=== PATIENT | female | born 1990 | race Caucasian/White ===

== ENCOUNTER → 2018-08-06 | Outpatient (CLI) | payer BC, SELFPAY ==
[2018-07-31 15:06] VITALS: BMI 33.7
[2018-08-06 12:25] LABS: Absolute Lymphocyte Count 1.96 X10^3/ul (0.83-4.51); Absolute Neutrophil Count 4.3 X10^3/uL (2.0-7.7); Basophil# 0.03 X10^3/uL; Basophil% 0.4 % (0-1); Eosinophil# 0.13 X10^3/uL; Eosinophils% 1.8 % (0-5); Hematocrit 43.2 % (37-47); Hemoglobin 14.4 g/dl (12.0-15.0); Lymphocyte # 1.96 X10^3/ul (4.0); Lymphocyte % 27.6 % (19-41); Mean Corp Hgb Conc 33.3 g/gl (32-36); Mean Corpuscular Hgb 27.6 pg (27.0-32.0); Mean Corpuscular Volume 82.9 fL (81-99); Mean Platelet Vol. 12.4 fl (6.2-12.0); Monocyte# 0.62 X10^3/uL; Monocyte% 8.7 % (0-10); Neutrophil # 4.33 X10^3/uL (2.7-7.7); Neutrophil % 61.1 % (47-70); POSITIVE COUNT NO; POSITIVE DIFFERENTIAL NO; POSITIVE MORPHOLOGY NO; Platelet Count 191 K/mm3 (150-450); RBC Distribution Width CV 13.2 % (11.6-14.6); RBC Distribution Width SD 39.4 fl (35.1-43.9); Red Blood Count 5.21 M/mm3 (4.2-5.4); White Blood Count 7.1 K/mm3 (4.4-11.0)
[2018-08-06 12:34] LABS: Albumin, Serum 3.9 g/dL (3.2-5.0); BUN 8 mg/dL (7-18); BUN/Creat Ratio 11.3 RATIO (10-20); Creatinine, Serum 0.71 mg/dL (0.55-1.02); EST Glomerular Filtration Rate 106 mL/min (>60); Est Glom Filt Rate - Afr Amer 128 mL/min (>60); Glucose 77 mg/dL (74-106)
[2018-08-06 12:35] LABS: ALB/GLOB Ratio 1.3 RATIO (0.9-2.4); AST(SGOT) 18 U/L (15-37); Alanine Aminotransfer ALT/SGPT 25 U/L (13-56); Alkaline Phosphatase 99 U/L (45-117); Anion Gap 4 (5-15); Calcium,Total 8.6 mg/dL (8.5-10.1); Chloride 106 mmol/L (98-107); Cholesterol 183 mg/dL (200); Globulin 3.1 g/dL (2.2-4.2); High Density Lipoprotein 49 mg/dL; Potassium 3.8 mmol/L (3.5-5.1); Sodium Level 137 mmol/L (136-145); Triglycerides 151 mg/dL; Very Low Density Lipoprotein 30 mg/dL (5-40)
== END | disposition home or self-care (01) ==
LOC: BIMLAB 09:03
PROVIDERS: PCP Internal Medicine; Visit Provider Internal Medicine
DX: E66.9 Obesity, unspecified (principal)
CPT/HCPCS: 36415; 80053; 80061; 85025

== ENCOUNTER 2018-10-04 19:52 | Emergency (ER) | payer OTHER, BC, SELFPAY ==
[2018-08-23 11:19] VITALS: BMI 33.7
[2018-10-04 19:52] VITALS: BP 132/89; PULSE 91; RESP 18; TEMP 36.7; O2SAT 99; BMI 33.8
--- NOTE | 2018-10-04 20:00 | RAD_ITS ---
STUDY: X-RAY - LEFT KNEE REASON FOR EXAM: Female, 28 years old. Trauma TECHNIQUE: 4 view(s) of the knee. COMPARISON: None. FINDINGS: ACL replacement changes noted. There is no evidence of fracture or dislocation. There are no significant degenerative changes. There are no radiodense foreign bodies. RAD/Knee 4 or More Views IMPRESSION: No fracture or dislocation. Electronically Signed: Lam Cabral, at 20:23 EDT Tel , Service support ,
--- NOTE | 2018-10-04 21:30 | ED.VIS.LOWEX ---
History of Present Illness Chief Complaint: Lower Extremity Injury Informant: Patient Occurred: Today - about 3 hrs ago Mechanism/Context: - - playing basketball at work w/ residents at [facility] home Context: Sudden Onset Timing: Intermittent Quality of Pain: Aching Location: medial left knee Current Severity: Mild Maximum Severity: Severe Worsened by: walking, bending Relieved by: rest Associated Symptoms: Loss of Funtion - intermittently. Negative for: Parasthesia, Weakness Narrative: Patient states he was playing basketball and while she was turning, her knee suddenly gave out and she fell without any other injury, but since the injury, her leg has been catching and she feels significant pain in the medial left knee joint space when that happens, and her knee locks and she is unable to move it. With certain movements, she is able to get it to unlock and then bend it as she is able now. She has had a meniscus surgery on her right knee, and an ACL repair on the symptomatic left knee. Saw Dr. Barron in the past. - Past Medical History (1) Arthritis Status: Chronic (2) Migraines Status: Chronic (3) Scoliosis Status: Chronic Past Medical History - Allergies and Home Meds Allergies/Adverse Reactions: Allergies Sulfa (Sulfonamide Antibiotics) Allergy (Intermediate, Verified 08/23/18 11:17) Rash Primary Care Physician: Gerardo Ty MD [Primary Care Provider] - Surgical History: - - knees Smoking Status: Never smoker Review of Systems General: Denies: Chills, Fever Musculoskeletal: Reports: Extremity Pain. Denies: Neck pain, Back pain, Swelling Skin: Denies: Abrasions, Wounds Neurological: Denies: Weakness, Parasthesia, Numbness Physical Exam Vital Signs/Narrative: Vital Signs Temp Pulse Resp BP Pulse Ox 10/04/18 19:52 98.1 F 91 18 132/89 H 99 Inital Vital Signs reviewed: Yes - Extremity Exam Left Knee: Limited ROM - But able to almost completely flex. Extensor mechanism intact. No effusion. Tender medial joint line. Joint is stable. Pain when stressing MCL but no laxity. Negative Gee. Negative posterior drawer. Stable LCL. General: Well nourished, Well developed, - - nad Head: Normocephalic, Atraumatic Skin: Normal color, No rash, No Trauma Neurological: Alert, Oriented x3, Cranial nerves II-XII grossly intact, Normal Strength, Normal Sensation Psychological: Normal affect Diagnostic/Tx/Re-eval Clinical Impression(s) from Imaging Studies Knee X-Ray 10/04/18 20:00 IMPRESSION: No fracture or dislocation. Electronically Signed: Lam Cabral, at 20:23 EDT Tel , Service support , - Medical Decision Making X-rays unremarkable. My suspicion is that she has a meniscus injury or tear. Her knee is not locked right now. I will give her a knee immobilizer with instructions on how to apply it, she has crutches at home. She will be given appropriate work restrictions, follow-up, she will need an MRI and then probable referral to orthopedics based on the results. We will not apply the knee immobilizer on her now since she is not getting crutches now. She understands all that. ED Disposition - Plan for ED Patient: Disposition: Home or Assisted Living Diagnosis: Acute traumatic internal derangement of left knee Instructions: ED Meniscal Injury Knee Poss, ED Immobilizer Knee Referrals: Gerardo Ty MD [Primary Care Provider] - [facility] [GROUP OF PHYSICIANS] - (1-4 days)
--- NOTE | 2018-10-04 21:34 | ED.DCSUM_ITS ---
History of Present Illness Chief Complaint: Lower Extremity Injury Informant: Patient Occurred: Today - about 3 hrs ago Mechanism/Context: - - playing basketball at work w/ residents at [facility] home Context: Sudden Onset Timing: Intermittent Quality of Pain: Aching Location: medial left knee Current Severity: Mild Maximum Severity: Severe Worsened by: walking, bending Relieved by: rest Associated Symptoms: Loss of Funtion - intermittently. Negative for: Parasthesia, Weakness Narrative: Patient states he was playing basketball and while she was turning, her knee suddenly gave out and she fell without any other injury, but since the injury, her leg has been catching and she feels significant pain in the medial left knee joint space when that happens, and her knee locks and she is unable to move it. With certain movements, she is able to get it to unlock and then bend it as she is able now. She has had a meniscus surgery on her right knee, and an ACL repair on the symptomatic left knee. Saw Dr. Barron in the past. - Past Medical History (1) Arthritis Status: Chronic (2) Migraines Status: Chronic (3) Scoliosis Status: Chronic Past Medical History - Allergies and Home Meds Allergies/Adverse Reactions: Allergies Sulfa (Sulfonamide Antibiotics) Allergy (Intermediate, Verified 08/23/18 11:17) Rash Primary Care Physician: Gerardo Ty MD [Primary Care Provider] - Surgical History: - - knees Smoking Status: Never smoker Review of Systems General: Denies: Chills, Fever Musculoskeletal: Reports: Extremity Pain. Denies: Neck pain, Back pain, Swelling Skin: Denies: Abrasions, Wounds Neurological: Denies: Weakness, Parasthesia, Numbness Physical Exam Vital Signs/Narrative: Vital Signs Temp Pulse Resp BP Pulse Ox 10/04/18 19:52 98.1 F 91 18 132/89 H 99 Inital Vital Signs reviewed: Yes - Extremity Exam Left Knee: Limited ROM - But able to almost completely flex. Extensor mechanism intact. No effusion. Tender medial joint line. Joint is stable. Pain when stressing MCL but no laxity. Negative Gee. Negative posterior drawer. Stable LCL. General: Well nourished, Well developed, - - nad Head: Normocephalic, Atraumatic Skin: Normal color, No rash, No Trauma Neurological: Alert, Oriented x3, Cranial nerves II-XII grossly intact, Normal Strength, Normal Sensation Psychological: Normal affect Diagnostic/Tx/Re-eval Clinical Impression(s) from Imaging Studies Knee X-Ray 10/04/18 20:00 IMPRESSION: No fracture or dislocation. Electronically Signed: Lam Cabral, at 20:23 EDT Tel , Service support , - Medical Decision Making X-rays unremarkable. My suspicion is that she has a meniscus injury or tear. Her knee is not locked right now. I will give her a knee immobilizer with instructions on how to apply it, she has crutches at home. She will be given appropriate work restrictions, follow-up, she will need an MRI and then probable referral to orthopedics based on the results. We will not apply the knee immobilizer on her now since she is not getting crutches now. She understands all that. ED Disposition - Plan for ED Patient: Disposition: Home or Assisted Living Diagnosis: Acute traumatic internal derangement of left knee Instructions: ED Meniscal Injury Knee Poss, ED Immobilizer Knee Referrals: Gerardo Ty MD [Primary Care Provider] - [facility] [GROUP OF PHYSICIANS] - (1-4 days)
[2018-10-04] MEDS: Naproxen 500 MG Tablet PO (22:00)
== END 2018-10-04 22:02 | disposition home or self-care (01) ==
PROVIDERS: Emergency Provider Emergency Medicine; Family Provider Internal Medicine; PCP Internal Medicine
DX: S89.92XA Unspecified injury of left lower leg, initial encounter (principal); W18.39XA Other fall on same level, initial encounter; Y93.67 Activity, basketball; Y92.119 Unspecified place in children's home and orphanage as the place of occurrence of the external cause; Y99.0 Civilian activity done for income or pay
CPT/HCPCS: 73564; 99283

== ENCOUNTER → 2018-10-16 07:13 | Outpatient (CLI) | payer OTHER, SELFPAY ==
[2018-10-07 11:01] VITALS: BMI 33.8
--- NOTE | 2018-10-16 07:16 | MRI_ITS ---
STUDY: MRI LEFT KNEE REASON FOR EXAM: Female, 28 years old. Medial Left knee pain TECHNIQUE: Standardized fat and water weighted pulse sequences were obtained in all 3 orthogonal planes. COMPARISON: 10/04/2018. FINDINGS: There are multiple radial and undersurface tears of the medial meniscus body and posterior horn. Normal hyaline cartilage of the medial femorotibial compartment. Normal medial femoral condyle and tibial plateau. Normal medial collateral ligamentous complex (MCL). Normal distal semimembranosus, gracilis and semitendinosus tendons. Normal lateral meniscus. Normal hyaline cartilage of the lateral femorotibial compartment. Normal lateral femoral condyle and tibial plateau. Normal proximal tibiofibular articulation. Normal lateral collateral (fibular) ligament. Normal popliteus tendon. Normal biceps femoris tendon. There is ACL tendon graft, normal in appearance. Normal posterior cruciate ligament (PCL). Normal congruent patellofemoral articulation. Normal hyaline cartilage of the patellofemoral compartment. Normal medial and lateral patellar retinaculum. Normal quadriceps tendon. Normal patellar tendon. Normal Hoffa's fat pad. There is no joint effusion. The soft tissues are unremarkable. The otherwise visualized osseous structures are unremarkable. MRI/Lower Ext Joint Only (Routine) IMPRESSION: Multiple radial and undersurface tears of the medial meniscus body and posterior horn. ACL graft is intact. Electronically Signed: Kristy Gaspar, at 13:04 EDT Tel , Service support ,
== END ==
PROVIDERS: Family Provider Internal Medicine; PCP Internal Medicine; Referring Provider Physician Assistant Surgical; Visit Provider Physician Assistant Surgical
DX: M23.92 Unspecified internal derangement of left knee (principal)
CPT/HCPCS: 73721

== ENCOUNTER → 2019-02-11 13:37 | Outpatient (CLI) | payer BC, SELFPAY ==
[2019-02-11 13:06] VITALS: BMI 33.8
[2019-02-11 14:30] LABS: Internal QC Validated? YES +Cl - CLEAR BKGD; Pregnancy, Serum, hCG Quali. NEGATIVE Negative
== END ==
PROVIDERS: Family Provider Internal Medicine; PCP Internal Medicine; Referring Provider Internal Medicine; Visit Provider Internal Medicine
DX: R11.2 Nausea with vomiting, unspecified (principal)
CPT/HCPCS: 36415; 84703

== ENCOUNTER 2019-02-19 10:36 | Day surgery (SDC) | payer OTHER, SELFPAY ==
[2019-02-04 08:20] VITALS: BMI 33.8
[2019-02-11 13:06] VITALS: BMI 33.8
[2019-02-19] VITALS (12 sets, daily range): BP systolic 111–134; BP diastolic 67–90; PULSE 72–120; RESP 14–18; TEMP 36.1–36.9; O2SAT 84–98; BMI 35.4
[2019-02-19 10:54] LABS: Internal QC Validated? YES +Cl - CLEAR BKGD; Pregnancy, Urine Negative Negative
[2019-02-19] MEDS: Lactated Ringers 1,000 ML 100 ML IV ×3 (11:06→17:29)
[2019-02-19] MEDS: Cefazolin 2 GM in 0.9% Normal Saline 100 ML IV (13:34)
[2019-02-19] MEDS: Epinephrine (1 mg/ml) 1 MG/ML VIAL (14:00)
[2019-02-19] MEDS: Mupirocin Ointment 22gm Tube 1 APPLIC (15:02)
--- NOTE | 2019-02-19 18:27 | PCM.DC.ORTHO ---
Discharge Diet: No Restrictions - ttwb left leg with crutches braces locked in extension, may rom 0-30 degrees, knee locked in extension at night for sleep, follow up/ call for appt with venkat on sunday for dressing change/ brace adjustment, SURESH stockings Discharge Activity: May Not Drive May shower in (days): 1 Ice area for (Minutes): 20 - Every hour while awake. Weight Bearing Status: Weight bearing as tolerated Keep extremity elevated above heart level: Operative Extremity Call your doctor if your incision/area has: Continuous Slow Oozing, Sudden Increased Bleeding, Increased Pain/ Swelling, Increased Redness, Foul Smelling Discharge Call your doctor if you observe: Fever of 101 or Higher, Coldness, Increased Pain, Numbness or Tingling, Change in Color, Calf discomfort Allergies/Adverse Reactions: Allergies Sulfa (Sulfonamide Antibiotics) Allergy (Intermediate, Verified 02/19/19 10:53) Rash Medications to take at Discharge progesterone micronized 100 mg capsule 100 mg PO QAM 02/04/19 omeprazole 40 mg capsule,delayed release 40 mg PO QAM #30 cap 02/11/19 ondansetron HCl 4 mg tablet 4 mg PO BID-TID PRN #60 tab 02/11/19 Hydrocodone Bitart/Apap 5-325 [[facility] 5MG-325MG] 1 - 2 tab PO Q6H PRN PRN 5 Days #40 tab 02/19/19 The following prescriptions were given: Hydrocodone Bitart/Apap 5-325 [[facility] 5MG-325MG] 1 - 2 tab PO Q6H PRN PRN 5 Days #40 tab PRN Reason: Pain Transmission Status: Received by [facility]/pharmacy #[id number] Primary Care Physician: Gerardo Ty MD [Primary Care Provider] - Test Results: Test results from this visit will be discussed in further detail at your follow-up appointment, if applicable. Please Follow Up With: Arabella Llanos, - [phone]
--- NOTE | 2019-02-19 18:28 | HP.PCM_ITS ---
History and Physical I have re-examined the patient. There are no clinical changes since date of exam. Intake Vital Signs 02/04/19 Body Mass Index (BMI) 33.8 Intake Visit Reasons: left knee Is patient in pain?: Yes Allergies Sulfa (Sulfonamide Antibiotics) Allergy (Intermediate, Verified 02/04/19 08:19) Rash Medications meloxicam 7.5 mg tablet 7.5 mg PO DAILY #90 tab 11/15/18 [Rx Confirmed 11/15/18] progesterone micronized 100 mg capsule 100 mg PO QAM 02/04/19 [History Confirmed 02/04/19] FOR[facility]LY [facility] Medical History (Updated 11/29/18 @ 06:30 by RACHELLE Guillaume) Frequent headaches (Acute) Migraines (Chronic) Scoliosis (Chronic) Seasonal allergies (Chronic) Arthritis (Chronic) Back pain (Acute) Knee pain (Acute) Surgical History (Updated 10/04/18 @ 21:35 by Dominik Sepulveda MD) History of placement of ear tubes (Acute) History of tonsillectomy (Acute) History of tonsillectomy and adenoidectomy (Acute) S/P ACL repair (Acute) meniscus repair (Acute) Family History (Updated 07/31/18 @ 15:13 by Violetta Keith) Grandfather Myocardial infarction, Onset Age: 51 Grandmother Myocardial infarction, Onset Age: 61 Sister Asthma Mother Diabetes Hypertension Arthritis Uncle Myocardial infarction 2 uncles Social History (Updated 02/04/19 @ 11:25 by Arabella Llanos DO) Smoking Status: Never smoker alcohol intake: current alcohol intake frequency: holidays/special occasions only Alcohol type: wine substance use type: does not use what type of physical activity do you participate in: running, weight training frequency: 3-4 times per week HPI left knee: Details: Parts of this documentation were recorded by a scribe, this documentation accurately reflects the service provided and the decisions made by me, Arabella Llanos DO 02/04/19 0814. JAYNA COLES is a 28 year old F here today for continued left knee pain. Patient notes that her pain is over her medial knee. She states that her pain is more constant. She denies any popping or clicking. Patient notes that she has instability while walking down stairs. She denies any locking currently but she did have locking previously. Patient notes that she has increased pain with walking long distances and prolonged sitting then standing. She is working currently with light duty restrictions. Patient got approval for surgery for [facility] until 03/01/19. She notes that she also got approval for PT following her surgery. ROS Musc Reports joint pain Skin/Breast Reports system reviewed and no additional complaints, except as docu Neuro Yes system reviewed and no additional complaints, except as docu Ortho Exam Left Knee Knee ROM: Yes ROM-Extension -20 to 0, Yes ROM-Flexion 0-140 Examination: Yes med jt line tenderness, No Lat jt line tenderness, Yes Shaina's Test Stability: NML: Anterior Drawer Assessment & Plan Problems 1. Other tear of medial meniscus, current injury, left knee, initial encounter S81.732I Plan Reviewed past surgical request. Instructed to not use the progesterone this month yet. Reviewed the pre-operative plans with the patient. Risks and benefits of the procedure were fully explained, including but not limited to infection, neurovascular injury, continued pain, arthritis, stiffness, need for further surgery, re-injury, DVT, PE, general risks of anesthesia, and loss of limb or life. The patient understands all the risks and does wish to proceed with written consent. Follow up post op or sooner if pain, swelling, numbness or associated symptoms, or concerns develop. All questions answered. Patient in agreement of plan. Coding Level of Care Code Off vis,est,level 4 Diagnoses Other tear of medial meniscus, current injury, left knee, initial encounter Z24.659G
--- NOTE | 2019-02-19 18:28 | PCM.OPRPT ---
Report of Operation Date of Procedure: 02/19/19 Pre-Operative Diagnosis: medial men tear Post-Operative Diagnosis: same Surgery/Procedure Performed:: lamont megan men repair bucket handle repair medical radiation dosimetrist: Luis Mcmahan Type of Anesthesia:: General Anesthesiologist: Howard Kessler Fluids Replaced: 1000ml lr Description of Procedure: Preop note Patient is a 28-year-old female with continued left knee pain and instability. Patient MRI confirms medial meniscus tear risk benefits alternatives surgery discussed with patient. Risks including but not limited to blood loss, blood clot, infection, neurovascular, failure procedure, loss of life and loss of limb. Patient is aware like proceed with left knee arthroscopy repair as indicated Operative note Next Patient seen and examined preop holding area. Left knee was marked. Patient brought to the operating placed supine on the operating table. Signed, anesthesia, antibiotics were administered. Left knee was prepped and draped usual sterile fashion with tourniquet around her upper thigh. Marked out anterolateral anteromedial portal placement. The left leg was then elevated segmented protectors pressure which rates her pressure 250 torr. We then started a diagnostic arthroscopy with using 11 blade to the anterolateral portal. Visualize the patellofemoral joint which is intact with a moved to the medial joint line that was a bucket-handle medial meniscus tear ACL PCL present in the notch the lateral meniscus was intact and stable probing as well as the lateral femoral condyle lateral to plateau we then grasped with a bucket-handle tear it was a chronic tear that was difficult we did do a partial meniscectomy as well. We rasped the area and did shave the area back we then were able to place the meniscus back to its insertion with multiple reverse curved FasT-Fix devices. We then put the probe back into the knee and noted that we had good stable rim remaining meniscus repair. The knee was then irrigated with copious muscle sterile saline we microfracture the notch. The tourniquet was deflated for a total working time of 50 minutes. Patient tied procedure well no comp occasions [facility] recovery room in stable condition Postoperative note Discussed with family that due to chronicity of injury the risks of retearing are significant We will give pictures in 2 weeks Follow-up on Sunday for dressing change with Moreno Toe-touch weightbearing left leg next Call with increased pain numbness tingling or other issues arise This note was generated with [employer] software. It may contain incorrect words, spelling, and punctuation that were not noted in checking the note before signing.
--- NOTE | 2019-02-19 19:10 | SUR.PHASEII ---
Addendum entered by Marlene Domingo 02/19/19 19:33: PATIENT STATES SHE'S FEELING BETTER, WANTS TO GO HOME. GETTING DRESSED WITH 'S ASSISTANCE. REPORTS KNEE PAIN THE SAME AND TOLERABLE, DECLINES NEED FOR PAIN MEDICATION AT THIS TIME. Original Note: WHEN STANDING FOR THE FIRST TIME, BECAME NAUSEATED AND VOMITED APPROX 200 ML CLEAR/BILE EMESIS. WAS ABLE TO AMBULATE WITH ASSIST. DR RICE NOTIFIED, ORDERED ZOFRAN 4 MG IVP AND SCOPOLAMINE PATCH WHICH WAS GIVEN. PATIENT AND STATE PATIENT ALWAYS GETS SICK AFTER SURGERY, VERBALIZE DESIRE TO GO HOME.
== END 2019-02-19 19:40 | disposition home or self-care (01) ==
LOC: SDC 10:36 → AC 10:37
PROVIDERS: Anesthesiology; Family Provider Internal Medicine; PCP Internal Medicine; Referring Provider Orthopaedic Surgery; Visit Provider Orthopaedic Surgery
PROC: (CPT 29882; principal; 2019-02-19 11:50)
DX: S83.212A Bucket-handle tear of medial meniscus, current injury, left knee, initial encounter (principal); X58.XXXA Exposure to other specified factors, initial encounter; Y93.9 Activity, unspecified; Y92.9 Unspecified place or not applicable; Y99.0 Civilian activity done for income or pay; K21.9 Gastro-esophageal reflux disease without esophagitis
CPT/HCPCS: 29882; 81025; J7120; J2405

== ENCOUNTER 2019-06-18 13:00 | Outpatient (RCR) | payer OTHER, BC, SELFPAY ==
[2019-03-04 13:49] VITALS: BMI 35.4
--- NOTE | 2019-03-11 09:32 | HP.PTEVAL_ITS ---
Patient's Visit Information JAYNA COLES is a 28 year old F referred to Physical Therapy by Arabella Llanos DO with a diagnosis of S/P SALK MEDIAL MENISCUS REPAIR BUCKET HANDLE. Date of Evaluation: 03/10/19 Physical Therapist: Ulises Hernandez, PT, Cert MDT, OCS - Visit Plan Frequency: 3x /Week Duration: 6 Weeks Plan: PATIENT UNDERWENT S/P MEDIAL MENISCUS REPAIR BUCKET HANDLE ON 02/19/10. PATIENT IS TDWB LLE WITH KNEE BRACE LOCKED IN EXENSION WALKING ,OKAY TO UNLOCK 70 DEGREES SITTING. SEE GUIDELINES FOR MENISCUS REPAIR. PT INTERVENTIONS WITH ROM KNEE 70 DEGREES ,4 WAY SLR ,UNLOAD QUAD/HAMS/HIP STRENGTHNING ,PROROGRESS WITH WB ATIVITIES AFTER 6WEEKS ,STENGTHENING,GAIT,PROPRIOCEPTION,FLEXABLITY,MODALTIES PRN - Subjective Findings: This 28 y/o female presents to physical therapy with s/p left medial meniscus bucket handlerepair. Patient tore meniscus of left knee 10/04/18 at work playing basketball with a client.Intially had immediate pain and unable to walk on it. Patient went to ER [facility] ,placed on crutches with knee immobilizer. [facility] showed bucket handle tear. Patient then seen Dr Llanos in September ,but had to wait due to appeal until surgery in on by DR Llanos done at [facility] with NWB knee IROM brace with locked in extension. Seen Dr last week on 03/07/19 with knee brace locked in extension with walking/bed and okay to unlock 70 degrees in sitting ,then TDWB.RTD Apr 02. Denies parathesia/tingling. Patient sleeping okay. Patient has impairments with walking TDWB, standing causes deficits stairs,ADLS' and RTW. Patient condition affects QOL and function. Patient does plan to rturn to work light duty. 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 SOCAIL: . 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 GAIT: Ambulates with TDWB with left knee brace locked in extension. SKIN: inscion well approximate. EDEMA;: joint line 40 cm. AROM: 3-65 supine knee flexion. MMT: quads/hams NT,HIP abd/add/extension 3+/5. PATELLA MOBS: Mild/mod tight inferior superior - Goals Goal 1:: Independant with HEP. Goal Time Frame: 8-12 Weeks Goal 2:: Improve AROM knee flexion 0-125 degrees to improve gait Goal Time Frame: 8-12 Weeks Goal 3:: Patient increase strength quads/hams 4/5 ,hip 4/5 to improve function. Goal Time Frame: 8-12 Weeks Goal 4:: Patient to normalize gait with normal balance Goal Time Frame: 8-12 Weeks Goal 5:: Patient be able to perform job demands without limitations Goal Time Frame: 8-12 Weeks Goal 6:: Patient to improve LFES score by 10-15 points to improve QOL and RTW Goal Time Frame: 8-12 Weeks - Rehabilitation Potential Physical Therapy Diagnosis: Patient tore meniscus at work playing Convrrt with client on 10/04/18 ,then had MRI showed meniscus bucket handle tear thus underwent s/p meniscus repair on 02/19/19 with impairments with decrease ROM,strength decrease gait with TDWB with crutches thus unable to RTW full duty. Rehabilitation Potential: Good - Anticipated Interventions Patient/Client Instruction: Educate patient on: Condition, Plan of Care For the Purpose of:: To decrease pain, To increase ROM, To improve muscle performance and motor function, To improve ability to perform ADL's, To increase tolerance to activity/condition/position, To improve ability of physical actions for home/community/work/leisure, To improve health of tissue, To decrease soft tissue restriction, To increase flexibility/ROM, To improve balance, To improve ability to perform tasks related to life management Therapeutic Exercise to Include: Strength training, Endurance training, Balance training, Flexibilty training, Gait and locomotor training, Passive ROM, Active ROM Comment: SEE GUIDELINES MENISCUS REPAIR For the Purpose of:: To decrease pain, To increase ROM, To improve muscle performance and motor function, To improve ability to perform ADL's, To increase tolerance to activity/condition/position, To improve performance and independence with ADL's, To improve ability of physical actions for home/community/work/leisure, To improve health of tissue, To decrease soft tissue restriction, To increase flexibility/ROM, To improve ability to perform tasks related to life management Functional electric stimulation: Yes TENS: Yes IF ES: Yes Cryotherapy (ice pack, ice massage): Yes Vasopneumatic device: Yes For the Purpose of:: To decrease pain, To improve nutrient delivery to tissue, To increase oxygenation perfusion, To improve health of tissue, To decrease soft tissue restriction Thank you for the opportunity to evaluate your patient. For Medicare and Medicare HMO plans, please review the plan of care and approve it. It will need to be FAXED BACK to us at [phone] for Medicare purposes. For Medicare only, by signing this I certify the plan of care. Please let me know if there are questions or concerns regarding this plan of care. Physician Signature: Date:
--- NOTE | 2019-03-11 14:18 | HP.PTEVAL ---
Patient's Visit Information JAYNA COLES is a 28 year old F referred to Physical Therapy by Arabella Llanos DO with a diagnosis of S/P SALK MEDIAL MENISCUS REPAIR BUCKET HANDLE. Date of Evaluation: 03/10/19 Physical Therapist: Ulises Hernandez, PT, Cert MDT, OCS - Visit Plan Frequency: 3x /Week Duration: 6 Weeks Plan: PATIENT UNDERWENT S/P LEFT MEDIAL MENISCUS REPAIR BUCKET HANDLE ON 02/19/10. PATIENT IS TDWB LLE WITH KNEE BRACE LOCKED IN EXENSION WALKING ,OKAY TO UNLOCK 70 DEGREES SITTING. SEE GUIDELINES FOR MENISCUS REPAIR. PT INTERVENTIONS WITH ROM KNEE 70 DEGREES ,4 WAY SLR ,UNLOAD QUAD/HAMS/HIP STRENGTHNING ,PROROGRESS WITH WB ATIVITIES AFTER 6WEEKS ,STENGTHENING,GAIT,PROPRIOCEPTION,FLEXABLITY,MODALTIES PRN - Subjective Findings: This 28 y/o female presents to physical therapy with s/p left medial meniscus bucket handlerepair. Patient tore meniscus of left knee 10/04/18 at work playing basketball with a client.Intially had immediate pain and unable to walk on it. Patient went to ER [facility] ,placed on crutches with knee immobilizer. [facility] showed bucket handle tear. Patient then seen Dr Llanos in September ,but had to wait due to appeal until surgery in on 02/19/[address] Llanos done at [facility] with NWB knee IROM brace with locked in extension. Seen Dr last week on 03/07/19 with knee brace locked in extension with walking/bed and okay to unlock 70 degrees in sitting ,then TDWB.RTD Apr 02. Denies parathesia/tingling. Patient sleeping okay. Patient has impairments with walking TDWB, standing causes deficits stairs,ADLS' and RTW. Patient condition affects QOL and function. Patient does plan to rturn to work light duty. 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 SOCAIL: . 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 GAIT: Ambulates with TDWB with left knee brace locked in extension. SKIN: inscion well approximate. EDEMA;: joint line 40 cm. AROM: 3-65 supine left knee flexion. MMT: left quads/hams NT,HIP abd/add/extension 3+/5. PATELLA MOBS: Mild/mod tight inferior superior - Goals Goal 1:: Independant with HEP. Goal Time Frame: 8-12 Weeks Goal 2:: Improve AROM left knee flexion 0-125 degrees to improve gait Goal Time Frame: 8-12 Weeks Goal 3:: Patient increase strength LEFT quads/hams 4/5 ,hip 4/5 to improve function. Goal Time Frame: 8-12 Weeks Goal 4:: Patient to normalize gait with normal balance Goal Time Frame: 8-12 Weeks Goal 5:: Patient be able to perform job demands without limitations Goal Time Frame: 8-12 Weeks Goal 6:: Patient to improve LFES score by 10-15 points to improve QOL and RTW Goal Time Frame: 8-12 Weeks - Rehabilitation Potential Physical Therapy Diagnosis: Patient tore left meniscus at work playing [employer] with client on 10/04/18 ,then had MRI showed meniscus bucket handle tear thus underwent s/p meniscus repair on 02/19/19 with impairments with decrease ROM,strength decrease gait with TDWB with crutches thus unable to RTW full duty. Rehabilitation Potential: Good - Anticipated Interventions Patient/Client Instruction: Educate patient on: Condition, Plan of Care For the Purpose of:: To decrease pain, To increase ROM, To improve muscle performance and motor function, To improve ability to perform ADL's, To increase tolerance to activity/condition/position, To improve ability of physical actions for home/community/work/leisure, To improve health of tissue, To decrease soft tissue restriction, To increase flexibility/ROM, To improve balance, To improve ability to perform tasks related to life management Therapeutic Exercise to Include: Strength training, Endurance training, Balance training, Flexibilty training, Gait and locomotor training, Passive ROM, Active ROM Comment: SEE GUIDELINES MENISCUS REPAIR For the Purpose of:: To decrease pain, To increase ROM, To improve muscle performance and motor function, To improve ability to perform ADL's, To increase tolerance to activity/condition/position, To improve performance and independence with ADL's, To improve ability of physical actions for home/community/work/leisure, To improve health of tissue, To decrease soft tissue restriction, To increase flexibility/ROM, To improve ability to perform tasks related to life management Functional electric stimulation: Yes TENS: Yes IF ES: Yes Cryotherapy (ice pack, ice massage): Yes Vasopneumatic device: Yes For the Purpose of:: To decrease pain, To improve nutrient delivery to tissue, To increase oxygenation perfusion, To improve health of tissue, To decrease soft tissue restriction Thank you for the opportunity to evaluate your patient. For Medicare and Medicare HMO plans, please review the plan of care and approve it. It will need to be FAXED BACK to us at [phone] for Medicare purposes. For Medicare only, by signing this I certify the plan of care. Please let me know if there are questions or concerns regarding this plan of care. Physician Signature: Date:
--- NOTE | 2019-06-18 14:10 | HP.PTDCSUM ---
HP - PT D/C Summary It has been my pleasure to treat JAYNA COLES under orders from Dr. Arabella Llanos DO, for the diagnosis of S/P SALK MEDIAL MENISCUS REPAIR BUCKET HANDLE for a total of 26 visit(s). Discharge Date: Please see the following information for a summary of their discharge status. - Subjective Subjective: Doing good .. patient reports 100% back to normal.RTW fully duty - Pain Left Knee Pain Intensity (Out of 10): 0 - Overall Improvement % Improvement: 100 - Objective Objective/Function: POSTURE: WFL. GAIT: normal akira. AROM: 0-120 supine degrees knee flexion. MMT: QUADS/HAMS/HIP 5/5 - Goals Goal 1:: Independant with HEP. Goal Progress: Goal Met Goal 2:: Improve AROM left knee flexion 0-125 degrees to improve gait Goal Progress: Goal Met Goal 3:: Patient increase strength LEFT quads/hams 5/5 ,hip 5/5 to improve function.(NEW GOAL) Goal Progress: Goal Met Goal 4:: Patient to normalize gait with normal balance Goal Progress: Goal Met Goal 5:: Patient be able to perform job demands without limitations Goal Progress: Goal Met Goal 6:: Patient to improve LFES score by 20> points to improve QOL and RTW (NEW GOAL) Goal Progress: Goal Met - Plan Plan: D/C - D/C Information If there are questions or concerns regarding this patient's physical therapy, please feel free to call me at [phone]. Thank you for the referral of this patient. Sincerely, Ulises Hernandez, PT, Cert MDT, OCS
== END 2019-06-18 19:00 | disposition home or self-care (01) ==
LOC: PT 13:00
PROVIDERS: Family Provider Internal Medicine; PCP Internal Medicine; Referring Provider Orthopaedic Surgery; Visit Provider Orthopaedic Surgery
DX: Z98.890 Other specified postprocedural states (principal)
CPT/HCPCS: 97110; 97162

== ENCOUNTER 2021-07-16 12:51 | Emergency (ER) | payer OTHER, BC, SELFPAY ==
[2021-07-16 12:52] VITALS: BP 124/73; PULSE 115; RESP 17; TEMP 37; O2SAT 97; BMI 32.1
--- NOTE | 2021-07-16 13:06 | EX.ED.GENINJ ---
HPI History of Present Illness Chief Complaint: Bite Informant: patient Narrative Narrative: Patient presents with bites and scrapes to both hands. This happened while she was at work. She states she pulled her hand away really before she was bitten with any force. She is not having any notable pain. Her tetanus is up-to-date as of about 4 to 5 years ago. She has no history of immunosuppression or steroid use. Nothing really makes this better or worse but there is really minimal if any symptoms. [facility] Medical History (Updated 07/16/21 @ 13:[address] Jose Alberto To MD) Arthritis Back pain Frequent headaches Knee pain Migraines Scoliosis Seasonal allergies Home Medications progesterone micronized 100 mg capsule 100 mg PO QAM 02/04/19 [History Last Taken Unknown] omeprazole 40 mg capsule,delayed release 40 mg PO QAM #30 cap 02/11/19 [Rx Last Taken Unknown] ondansetron HCl 4 mg tablet 4 mg PO BID-TID PRN #60 tab 02/11/19 [Rx Last Taken Unknown] amoxicillin-pot clavulanate 1 tab PO BID #14 tab 07/16/21 [Rx Last Taken Unknown] Allergy/AdvReac Type Severity Reaction Status Date / Time Sulfa (Sulfonamide Allergy Intermediate Rash Verified 07/16/21 12:51 Antibiotics) Family History Grandfather Myocardial infarction, Onset Age: 51 Grandmother Myocardial infarction, Onset Age: 61 Sister Asthma Mother Diabetes Hypertension Arthritis Uncle Myocardial infarction 2 uncles Surgical History History of placement of ear tubes History of tonsillectomy History of tonsillectomy and adenoidectomy meniscus repair S/P ACL repair Social History Smoking Status: Never smoker alcohol intake: current alcohol intake frequency: holidays/special occasions only Alcohol type: wine substance use type: does not use what type of physical activity do you participate in: running and weight training frequency: 3-4 times per week ROS ROS ED Constitutional Constitutional ED: Denies fever(s) Gastrointestinal Gastrointestinal: Denies nausea or vomiting Integumentary Reports Abrasions Neurologic Neurologic: Denies weakness Hematologic/Lymphatic Hematologic/Lymphatic: Denies easy bleeding or easy bruising EXAM Physical Exam Const Vital Signs: 07/16/21 12:52 Temperature 98.6 F Temperature Source Temporal Pulse Rate 115 H Respiratory Rate 17 Blood Pressure 124/73 H Blood Pressure Mean 90 Pulse Ox 97 Oxygen Delivery Method Room Air Positive well nourished and well developed General Appearance ED: well developed and NAD HEENT atraumatic Neck full ROM Resp normal respiratory effort Extremity Extremity Narrative: There are some very superficial red shah to the dorsum of both hands. These really do not even go through or much into the epidermis. There is no break into the dermis anywhere. No pain with range of motion of the hand. Neuro oriented x3 Sensorium / Orientation: alert Skin Skin Narrative: Very superficial abrasions to the dorsum of both hands as above. Trauma: abrasion Wounds: wounds noted MDM MDM MDM Narrative Medical decision making narrative: Patient this is already up-to-date. I explained that she really does not have a break through the epidermis. At this point there is no indication to give antibiotics. I will write a prescription for her to start if she develops any redness or changes. If there is any swelling or pain. She can also return at that time. The area has been cleaned. Discharge Plan Triage Chief Complaint: Bite ED Provider: Jose Alberto To Dx/Rx/DC Orders Clinical Impression: Abrasion of hand without infection Instructions: ED Abrasion, ED Human Bite Prescriptions: New amoxicillin-pot clavulanate 875-125 mg tablet 1 tab PO BID Qty: 14 RF: 0 No Action progesterone micronized 100 mg capsule 100 mg PO QAM RF: 0 omeprazole 40 mg capsule,delayed release(DR/EC) 40 mg PO QAM Qty: 30 RF: 1 ondansetron HCl 4 mg tablet 4 mg PO BID-TID PRN (Reason: nausea and vomiting) Qty: 60 RF: 1 Primary Care Provider: Gerardo Ty Referrals: Gerardo Ty MD [Primary Care Provider] - 1-2 Days if not improving Disposition Disposition: Home, Self Care
[2021-07-16 13:17] VITALS: BP 116/74; PULSE 100; RESP 15; O2SAT 100
== END 2021-07-16 13:25 | disposition home or self-care (01) ==
PROVIDERS: Emergency Provider Emergency Medicine; PCP Internal Medicine; Visit Provider Emergency Medicine
DX: S60.511A Abrasion of right hand, initial encounter (principal); S60.512A Abrasion of left hand, initial encounter; Y99.0 Civilian activity done for income or pay; X58.XXXA Exposure to other specified factors, initial encounter
CPT/HCPCS: 99282

== ENCOUNTER 2022-03-09 01:50 | Inpatient (IN) | payer BC, SELFPAY ==
[2022-03-09] VITALS (66 sets, daily range): BP systolic 84–141; BP diastolic 49–81; PULSE 77–190; TEMP 36.3–37.3; O2SAT 78–99; BMI 37.4
[2022-03-09 01:46] LABS: ROM Internal Control Test YES-OK TO RESULT pt. (Internal QC)
[2022-03-09 01:47] LABS: ROM Patient Test POSITIVE (Negative)
[2022-03-09] MEDS: Lactated Ringers 1,000 ML 50 ML IV (02:00)
[2022-03-09] MEDS: LACTATED RINGERS 500 ML 999 ML IV ×5 (02:07→14:55)
[2022-03-09 02:22] LABS: Basophil# 0.04 X10^3/uL; Basophil% 0.4 % (0-1); Eosinophil# 0.09 X10^3/uL; Eosinophils% 0.8 % (0-5); Hematocrit 38.1 % (37-47); Hemoglobin 12.7 g/dL (12.0-15.0); Lymphocyte % 16.7 % (19-41); Mean Corp Hgb Conc 33.3 g/dL (32-36); Mean Corpuscular Hgb 27.3 pg (27.0-32.0); Mean Corpuscular Volume 81.9 fL (81-99); Mean Platelet Vol. 11.7 fl (6.2-12.0); Monocyte# 1.13 X10^3/uL; NRBC Flagged by Analyzer 0 % (0-5); Neutrophil # 7.98 X10^3/uL (2.7-7.7); Neutrophil % 70.2 % (47-70); Platelet Count 158 K/mm3 (150-450); RBC Distribution Width CV 14.1 % (11.6-14.6); RBC Distribution Width SD 41.5 fl (35.1-43.9); Red Blood Count 4.65 M/mm3 (4.2-5.4); White Blood Count 11.4 K/mm3 (4.4-11.0)
[2022-03-09] MEDS: Oxytocin 15 Units/NS 250ml 15 UNITS/250 ML IV.SOLN 2 UNITS IV (04:07)
[2022-03-09] MEDS: Ondansetron 4 MG/2 ML Vial IV (05:41)
--- NOTE | 2022-03-09 08:44 | PCM.PN.BLA ---
Progress Note Patient seen at bedside. Breathing through contractions. Thinking of getting epidural for pain control. Physical Exam Const alert and no apparent distress General Appearance: cooperative Orientation / Consciousness: awake Exam Limitations: no limitations HEENT normocephalic Eyes General Eye: normal appearance of both eyes Neck full ROM Chest inspection of chest normal Resp normal respiratory effort and normal air movement Effort and Inspection: symmetric chest movement Auscultation: clear to auscultation bilaterally Cardio regular rate GI soft to palpation, non-tender and non-distended Inspection: and other Back/Spine normal ROM Extremity full ROM, normal capillary refill and no calf tenderness Skin no rashes or lesions noted Neuro oriented x3 and CN's II-XII intact bilaterally Psych mental status grossly normal Assessment & Plan Assessment/Plan (1) PROM (premature rupture of membranes): (2) Obesity (BMI 30.0-34.9): (3) Nulliparity: (4) 38 weeks gestation of : PLAN: Plan NST reactive CE- 2/70/-2 Continue position changes Epidural when indicated Continue present plan of care Dr. Mejia updated and is collaborating physician
[2022-03-09] MEDS: fentaNYL 100 MCG/2 ML Ampul IV (09:05)
[2022-03-09] MEDS: fentaNYL-bupivacaine (epidural) 100 ML BAG EPIDURAL ×2 (12:33→16:43)
[2022-03-09] MEDS: Lactated Ringers 1,000 ML 200 ML IV (13:50)
--- NOTE | 2022-03-09 18:16 | OP.PCM_ITS ---
Assessment & Plan (1) (spontaneous vaginal delivery): (2) Laceration, obstetrical, first degree: (3) Obesity (BMI 30.0-34.9): Maternal Data Information LIZBETH Calculator Estimated Delivery Date Method Current WG Current Estimate 03/18/22 Manual 38w 5d Vaginal Delivery Maternal Presentation Maternal Presentation: Spontaneous Rupture of Membranes Maternal Presentation: at 38.5 weeks gestation that presented with PROM for clear fluid at 2350. Type of Induction: Pitocin (Augmentation) Operative Information Date of Procedure: 03/09/22 Pre-Operative Diagnosis: Term gestation, PROM Post-Operative Diagnosis: Same, live male infant Surgery / Procedure Performed: Spontaneous Vaginal Delivery Type of Anesthesia: Epidural Drain: Hankins to straight drain Estimated Blood Loss: 150 Time of Delivery: 18:00 Findings Description of Procedure: Patient complete dilation and +1 station. Provided bedside support while patient pushing. head delivered over intact perineum. Loose nuchal cord easily reduced. With next push, anterior shoulder followed by remainder of body delivered. Vigorous male placed on maternal abdomen and was attended to by nursing staff. Pitocin IV started for active management of the third stage of labor. 3 vessel cord clamped and cut by patient's sister after 2 minute delay. Infant placed immediately skin to skin with patient. Placenta delivered spontaneously and intact. Small first degree vaginal laceration repaired in usual fashion using 3-0 Vicryl Rapid. Hemostasis obtained. EBL 150 cc. APGARS 8/9. Patient and bonding well at this time. Dr. Mejia notified of doreen lopez. Presentation: Vertex and HUBER Amniotic Membrane Rupture Type: Spontaneous Time of Membrane Rupture: 2350 Amniotic Fluid Description: Clear Placental Delivery Description: Spontaneous Placenta Disposition: [facility] Cord Vessel Description: 3 Vessels Cord Entanglement: Around neck x 1, loose Nuchal Cord Compression: Without compression Infant A Gender: Male (1 minute): 8 (5 minute): 9 Delayed Cord Clamping: Yes Post Vaginal Delivery Medications Given After Delivery: IV Pitocin Episiotomy Description: None Laceration: 1st degree Complication Complications: None
[2022-03-09] MEDS: Oxytocin 15 Units/NS 250ml 15 UNITS/250 ML IV.SOLN 83 UNITS IV (18:45)
[2022-03-10] VITALS (7 sets, daily range): BP systolic 98–112; BP diastolic 59–61; PULSE 76–93; RESP 16–17; TEMP 36.3–36.9
[2022-03-10] MEDS: Acetaminophen 500 MG Tablet 1000 MG PO ×3 (05:28→20:23)
--- NOTE | 2022-03-10 06:45 | PCM.PN.OB ---
Subjective Subjective Patient seen at bedside. Resting quietly. Denies any pain. Voiding without difficulty. Baby in SCN for low blood sugars and doing well. Lochia minimal. Objective Data Objective Data Vital Signs: Vital Signs Temp Pulse Resp BP Pulse Ox O2 Del Method 98.1 F 83 16 107/61 96 Room Air 03/10/22 03:35 03/10/22 03:35 03/10/22 03:35 03/10/22 03:35 03/09/22 20:18 03/09/22 14:35 Oxygen Delivery Method Room Air Weight: 204 lb 12.8 oz Body Mass Index (BMI) 37.4 Intake & Output: Intake and Output for Last 24 Hours 03/08/22 03/09/22 03/10/22 23:59 23:59 23:59 Intake Total 4429.00 / 4429.00 Output Total 1999 900 / 900 Balance 2429.00 / 2429.00 -900 / -900 Lab / Micro Data Result Diagrams: 03/09/22 02:00 Micro: Microbiology 03/09/22 02:00 Nasal Secretion SARS-CoV-2 Antigen (Rapid) - Final ROS Eyes Eyes: Denies blurry vision, change in vision or spots in vision ENT HEENT: Denies dizziness or headache(s) Cardiovascular Cardiovascular: Denies abdominal pain, chest pain or dyspnea Respiratory/Chest Respiratory/Chest: Denies cough, dyspnea, shortness of breath at rest or shortness of breath with exertion Gastrointestinal Gastrointestinal: Denies abdominal pain, diarrhea or vomiting Genitourinary Genitourinary: Denies change in urinary stream, difficulty urinating or dysuria Musculoskeletal Musculoskeletal: Reports none Integumentary Integumentary: Denies rash Neurologic Neurologic: Denies dizziness, headache(s), memory loss or weakness Physical Exam Const alert and no apparent distress General Appearance: cooperative and comfortable Exam Limitations: no limitations HEENT normocephalic Eyes General Eye: normal appearance of both eyes Neck full ROM General: normal visual inspection Chest Chest: symmetrical chest wall rise Resp normal respiratory effort and normal air movement Effort and Inspection: symmetric chest movement Auscultation: clear to auscultation bilaterally Cardio regular rate and regular rhythm GI normal to inspection, nondistended, normoactive bowel sounds Back/Spine normal ROM Extremity full ROM and no calf tenderness General Extremity: normal exam except as noted Skin no rashes or lesions noted Neuro CN's II-XII intact bilaterally Psych mental status grossly normal Assessment & Plan (1) (spontaneous vaginal delivery): (2) Laceration, obstetrical, first degree: (3) Care and examination of lactating mother: PLAN: Plan PPD 1 support Routine care Pain control Anticipate discharge home tomorrow
--- NOTE | 2022-03-10 12:33 | NURSING ---
1220- RN IBCLC in [facility] to assist pt. with latching/feeding. Education given about frequency of feedings, milk transition progression, and signs of a good latch and feeding. Pt. does not have any specific questions or concerns at this time. doing very well with this feeding. Nursed for 10 minutes, took a break, then got back on breast again.
--- NOTE | 2022-03-10 14:39 | CASEMGMT ---
Social Work Assessment Labor and Delivery Unit Patient Address: [address] [place] [address] Phone number: [phone] Date of Referral: 03/10/2022 Time of Referral: 829 Referred By: Social work identification Date of Intervention: 03/10/2022 Time of Intervention: 1329 Reason for Referral: Maternal history of anxiety and infant admitted to special care nursery History obtained from: Medical records and mother of baby (MOB) Suzie Hollins; father of baby (FOB) Bj Hollins present. Household composition: MOB and FOB live with the MOB's [id number] and [id number]. Home situation is reportedly safe and adequate and plan to take infant back to this home. Patient's parent/guardian status: MOB and FOB have been for 8 years. Upon admission MOB denied any safety concerns or history of abuse. No indications present during assessment. Infant is the first child for both parents, baby boy named Yfn Hollins (03/09/2022). Medical History: JU is 1, para 0 now 1 after delivering [place]. No reported issues with care. 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 delivered at 38.5 weeks gestation after premature rupture of membranes. Infant weighed 6 pounds 13 ounces at delivery. Apgars 8 and 9 at 1 and 5 minutes of life respectively. did develop hypoglycemic issues after and transferred into the [facility] special care nursery. Educational Status: JU is just finishing up her graduate degree in counseling and will graduate in March 2022. No issues with reading, writing, or learning comprehension. Financial Status: DEAN works at [employer]. JU works [employer]. 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 Supplies: MOB and FOB reported to have necessary supplies to care for the infant. Childcare/Caregiver(s): MOB and FOB. Transportation: No concerns and both parents drive. Programs/Agencies Involved: No agency involvement. JU reports she looked into WIC but the household may too much money. MOB excepted information on help me grow. Children Services/Legal Issues: None reported. Behavioral Health Issues: Mental Health History: JU reports some situational anxiety in the past though never officially diagnosed. No history of depression. Substance Use History: Denies any history of substance use and no tobacco use. Drug Screens: Meconium drug screening for baby is pending. Family/Social Stressors: MOB has been working through her masters program in counseling throughout this . No other stressors or changes reported other than and infant is now in the special care nursery. Support Systems: MOB reports support from both sides of the family, [id number] and father of baby. FOB does get to take 1 week off of work Depression/Shaken Baby/Safe Sleeping: Information provided. Reviewed risk factors for depression anxiety. ASSESSMENT: Met with MOB and FOB in room, introducing to self and social work role. MOB cooperative, pleasant, and willing to speak with social services technician. Good eye contact. Affect slightly constricted though did brighten as conversation went on. MOB admitted to feeling some stress after the baby went to special care, but reports has been receiving positive updates on the baby which has been helpful, as well as knowing that can visit the baby at any time. MOB and FOB report to have all necessary supplies to care for the infant and to have an adequate support system. No voiced concerns at home going. Both parents listened education on mood and anxiety disorders. Accepted information and and resources and information for humbling. Educated MOB that this rfp writer is the social services technician for labor and delivery unit, but also with the assigned social services technician to the special care unit nursery for continuity of care of families who are admitted into that unit. PLAN: MOB will discharge home when medically ready. is at the special care nursery and will discharge there when medically ready. No other services requested or indicated. -CRISTO Bell, PATRIZIA *This note was generated with [employer] software. It may contain incorrect words, spelling, and punctuation that were not noted in review of the chart prior to signing*
[2022-03-11 01:50] VITALS: BP 114/56; PULSE 67; RESP 15; TEMP 36.6
[2022-03-11] MEDS: Acetaminophen 500 MG Tablet 1000 MG PO (07:01)
--- NOTE | 2022-03-11 10:18 | PCM.PN.OB ---
Subjective Subjective pt doing well. pain well controlled. ambulating and voiding without difficult. robyn reg diet without n/v. pumping and baby is in special care nursery. Objective Data Objective Data Vital Signs: Vital Signs Temp Pulse Resp BP Pulse Ox O2 Del Method 97.8 F 67 15 114/56 L 96 Room Air 03/11/22 01:50 03/11/22 01:50 03/11/22 01:50 03/11/22 01:50 03/09/22 20:18 03/10/22 17:16 Oxygen Delivery Method Room Air Weight: 204 lb 12.8 oz Body Mass Index (BMI) 37.4 Intake & Output: Intake and Output for Last 24 Hours 03/09/22 03/10/22 03/11/22 23:59 23:59 23:59 Intake Total 4429.00 / 4429.00 Output Total 1999 900 / 900 Balance 2429.00 / 2429.00 -900 / -900 Lab / Micro Data Result Diagrams: 03/09/22 02:00 Micro: Microbiology 03/09/22 02:00 Nasal Secretion SARS-CoV-2 Antigen (Rapid) - Final Physical Exam Const alert and no apparent distress General Appearance: comfortable Resp normal respiratory effort GI soft to palpation, non-tender and non-distended GI Narrative: Fundus firm and U-1 Extremity no calf tenderness Assessment & Plan (1) Laceration, obstetrical, first degree: (2) (spontaneous vaginal delivery): PLAN: Doing well and meeting milestones for discharge. Discharge instructions reviewed. D/c home today.
[2022-03-11 10:19] VITALS: BP 111/65; PULSE 81; RESP 16; TEMP 36.6
--- NOTE | 2022-03-11 10:21 | DCINST_ITS ---
Discharge Instructions Diet Discharge Diet: No restrictions Activity Discharge Activity: May Shower May resume sexual activity in: 6 weeks Ice area for (Minutes): 15 Weight Bearing Status: Weight bearing as tolerated Lifting Restrictions: Nothing heavier than baby Dressing / Incision Call your doctor if your incision/area has: Continuous Slow Oozing, Sudden Increased Bleeding, Increased Pain/ Swelling, Increased Redness, Foul Smelling Discharge and Swelling at the incision site Call your doctor if you observe: Fever of 101 or Higher, Coldness, Increased Pain, Numbness or Tingling, Change in Color, Inability to urinate, Inability to have a bowel movement, Using more than 1 pad per hour, Shortness of breath, Dizziness, Fainting spells, Swelling in the ankles, Chest pain, Increased palpitations (irregular heartbeat), Calf discomfort and Uncontrolled pain Cleanse incision/area with: Soap & Water Follow Up Care Please Follow Up With: Katelin Sanchez CNM When: 1-2 weeks 6 weeks Test Results: Test results from this visit will be discussed in further detail at your follow- up appointment, if applicable. Discharge Plan Admission Admit Date/Time: 03/09/22 01:50 Primary Reason for Your Visit: delivery Attending Provider: Winter Arthur Primary Care Provider: Gerardo Ty Discharge Orders/Prescriptions Prescriptions: New ibuprofen 600 mg tablet 600 mg PO Q6H PRN (Reason: pain) Qty: 30 0RF Continued dsxfrosb-wjq-Bl-FA 1 mg Tablet 1 tab PO DAILY Discontinued aspirin 81 mg Capsule 81 mg PO DAILY Referrals / Follow Up: Gerardo Ty MD [Primary Care Provider] - Disposition Disposition (needs filled in before D/C Order can be placed): Home, Self Care
[2022-03-11 13:45] VITALS: BP 99/59; PULSE 80; RESP 16; TEMP 36.4; O2SAT 98
--- NOTE | 2022-03-16 08:50 | DS.PCM_ITS ---
Providers Date of Admission: 03/09/22 Date of Discharge: 03/11/22 Primary Care Physician: Dr. Gerardo Ty MD Reason For Visit: VAG Diagnosis Discharge Diagnosis (1) Laceration, obstetrical, first degree: Status: Acute Code(s): O70.0 - First degree perineal laceration during delivery (2) (spontaneous vaginal delivery): Status: Acute Code(s): O80 - Encounter for full-term uncomplicated delivery Plan: Doing well and meeting milestones for discharge. Discharge instructions reviewed. D/c home today. Medications at Discharge Home Medications spfephvt-krm-Bf-FA 1 mg tablet 1 tab PO DAILY 03/09/22 ibuprofen 600 mg tablet 600 mg PO Q6H PRN pain #30 tabs 03/11/22 Hospital Course Operations - (obstetrical laceration repair) Summary of Care Provided Hospital Course: Pt presented with PROM and delivered vaginally. See operative report for details. She was tolerating a regular diet, ambulating and voiding without difficulty, and bleeding was normal. She was discharged home in good condition with follow up in the office. Weight / BMI Weight Weight: 204 lb 12.8 oz Body Mass Index (BMI) 37.4 ABG / Lab / Microbiology Data Result Diagrams: 03/09/22 02:00 Microbiology: Microbiology 03/09/22 02:00 Nasal Secretion SARS-CoV-2 Antigen (Rapid) - Final D/C Instructions Discharge Diet: No restrictions May resume sexual activity in: 6 weeks Ice area for (Minutes): 15 Weight Bearing Status: Weight bearing as tolerated Call your doctor if your incision/area has: Continuous Slow Oozing, Sudden Increased Bleeding, Increased Pain/ Swelling, Increased Redness, Foul Smelling Discharge and Swelling at the incision site Call your doctor if you observe: Fever of 101 or Higher, Coldness, Increased Pain, Numbness or Tingling, Change in Color, Inability to urinate, Inability to have a bowel movement, Using more than 1 pad per hour, Shortness of breath, D izziness, Fainting spells, Swelling in the ankles, Chest pain, Increased palpitations (irregular heartbeat), Calf discomfort and Uncontrolled pain Cleanse incision/area with: Soap & Water Please Follow Up With: Katelin Sanchez CNM When: 1-2 weeks 6 weeks Meaningful Use Info Meaningful Use Diagnoses (Choose all that apply): None applicable Discharge Plan Admission Admit Date/Time: 03/09/22 01:50 Primary Reason for Your Visit: delivery Attending Provider: Winter Arthur Primary Care Provider: Gerardo Ty Instructions Patient Instructions: After a Vaginal Discharge Orders/Prescriptions Prescriptions: New ibuprofen 600 mg tablet 600 mg PO Q6H PRN (Reason: pain) Qty: 30 0RF Continued ypdswqpa-qqq-Uw-FA 1 mg Tablet 1 tab PO DAILY Discontinued aspirin 81 mg Capsule 81 mg PO DAILY Referrals / Follow Up: Gerardo Ty MD [Primary Care Provider] - Disposition Disposition (needs filled in before D/C Order can be placed): Home, Self Care
--- NOTE | 2022-05-02 19:08 | HP.PCM.OB_ITS ---
HPI - General General Date of Admission: 03/09/22 HPI Narrative JAYNA COLES, is a 32 F who presents at 38w5d with PROM. Maternal Data Information LIZBETH Calculator Estimated Delivery Date Method Current WG Current Estimate 03/18/22 Manual 48w 2d 38w5d PFSH PFSH Medical History (Updated 03/19/22 @ 00:02 by Christina Garcia) Arthritis Back pain Frequent headaches Knee pain Migraines Scoliosis Seasonal allergies Home Medications rdymrifl-yep-Rw-FA 1 mg tablet 1 tab PO DAILY 03/09/22 [History Last Taken Unknown] ibuprofen 600 mg tablet 600 mg PO Q6H PRN pain #30 tabs 03/11/22 [Rx Last Taken Unknown] Allergy/AdvReac Type Severity Reaction Status Date / Time Sulfa (Sulfonamide Allergy Intermediate Rash Verified 03/09/22 01:42 Antibiotics) Family History Grandfather Myocardial infarction, Onset Age: 51 Grandmother Myocardial infarction, Onset Age: 61 Sister Asthma Mother Diabetes Hypertension Arthritis Uncle Myocardial infarction 2 uncles Surgical History History of placement of ear tubes History of tonsillectomy and adenoidectomy meniscus repair S/P ACL repair Social History Smoking Status: Never smoker alcohol intake: current alcohol intake frequency: holidays/special occasions only Alcohol type: wine substance use type: does not use what type of physical activity do you participate in: running and weight training frequency: 3-4 times per week History Elective abortions Hx Para 0 Spontaneous abortions Hx # Term Pregnancies Ectopic pregnancies Hx # Pregnancies Multiple births # of living children Visit Details OB Flowsheet Initial Weight: Not Recorded Date -?-?-?-?-?-?-?-?-?-?-?-?- EGA Weight BP Urine Prot -?-?-?-?-?-?-?-?-?-?-?-?- Glucose FHR FuHt Pres Dilation -?-?-?-?-?-?-?-?-?-?-?-?- Effaced St Visit Note 03/09/22 -?-?-?-?-?-?-?-?-?-?-?-?- 39w 0d 204 lb 12.8 oz 113/5 9 114/61 91/52 112/55 109/55 139/81 111/55 126/72 141/78 100/52 97/52 99/55 98/55 94/51 89/49 91/53 97/52 94/49 100/53 93/50 100/54 119/76 127/66 97/50 84/50 94/55 95/54 97/53 99/57 100/54 98/52 93/55 112/59 -?-?-?-?-?-?-?-?-?-?-?-?- -?-?-?-?-?-?-?-?-?-?-?-?- NST FHR Rate Baby A Baseline: 145 Variability:: Moderate Accelerations:: 15 x 15 Decelerations:: None FHR Category:: Category I Uterine Activity:: Irregular Vital Signs Vital Signs Vital Signs: Weight Weight: 204 lb 12.8 oz Body Mass Index (BMI) 37.4 Labs Labs Labs: Blood Type A POSITIVE Antibody Screen NEGATIVE Hct 38.1 % (37-47) Hgb 12.7 g/dL (12.0-15.0) VZV IgG Antibody 1.34 index (Immune >1.09-) RPR negative HBsAG negative HIV negative HepC negative Assessment & Plan (1) Obesity (BMI 30.0-34.9): (2) Nulliparity: (3) PROM (premature rupture of membranes): (4) 38 weeks gestation of : PLAN: Plan 1) Admit to labor and delivery 2) Routine labs 3) Pitocin per protocol 4) Pain management upon request 5) GBS negative 6) Collaborative physician notified of admission
== END 2022-03-11 16:40 | disposition home or self-care (01) | DRG 807 ==
LOC: WPOUT 01:51 → WP 01:51
PROVIDERS: Admitting Provider Advanced Practice Midwife; PCP Internal Medicine; Visit Provider Advanced Practice Midwife
DX: O42.92 Full-term premature rupture of membranes, unspecified as to length of time between rupture and onset of labor (principal); Z37.0 Single live birth; O69.81X0 Labor and delivery complicated by cord around neck, without compression, not applicable or unspecified; O99.214 Obesity complicating childbirth; O70.0 First degree perineal laceration during delivery; Z3A.38 38 weeks gestation of pregnancy
CPT/HCPCS: 59025; 59050; 84112; 85025; 86850; 86900; 86901; 87426; 99218; J7120; G0378; J2405

== ENCOUNTER 2023-06-19 14:26 | Emergency (ER) | payer BC, SELFPAY ==
[2023-06-19 14:27] VITALS: BP 121/86; PULSE 111; RESP 16; TEMP 36.6; O2SAT 99; BMI 33.3
--- NOTE | 2023-06-19 14:44 | CT_ITS ---
STUDY: CT ABDOMEN AND PELVIS WITH CONTRAST REASON FOR EXAM: Female, 33 years old. Right lower quadrant pain with nausea vomiting and diarrhea. RADIATION DOSAGE (If Supplied By Facility): CTDIvol = ( 11.63 ) mGy, DLP = ( 885.61 ) mGycm TECHNIQUE: Transaxial images were obtained from the dome of the diaphragm to the symphysis pubis without oral contrast. IV 100mL Isovue-370 was administered. Sagittal and coronal images were reconstructed. Individualized dose optimization techniques were used for this CT. COMPARISON: Comparison is made with prior study dated August 01, 2012 FINDINGS: The visualized lung bases are unremarkable. The visualized portions of the heart are within normal limits. There is decreased attenuation of the liver consistent with steatosis. Normal gallbladder and extrahepatic biliary system. Normal spleen. Normal pancreas. Normal bilateral adrenal glands. Normal right kidney. Normal left kidney. Normal visualized stomach. Normal small intestine. Normal colon. The appendix is visualized and appears normal. Normal abdominal aorta. Normal inferior vena cava. Normal retroperitoneum. Normal urinary bladder. Normal abdominal wall. Normal osseous structures. CT/Abdomen/Pelvis W IV Cont ONLY IMPRESSION: Normal enhanced CT of the abdomen and pelvis. Electronically Signed: Julián Beltran MD at 15:26 EST ,
--- NOTE | 2023-06-19 14:51 | EX.ED.DYSGE1 ---
HPI <Gila Patino RN - Last Filed: 06/19/23 16:17> History of Present Illness Chief Complaint: Abd Pain Informant: patient Onset/Context/Timing Onset: Today Context: Sudden Onset Timing: Continuous Quality: Sharp Location: Right upper and lower quadrant Current Severity: 6/10 Maximum Severity: 2/10 Worsened by: Nothing Relieved by: Nothing Associated Symptoms Associated Symptoms: Nausea, vomiting, diarrhea Narrative Narrative: Patient presents to the ED for sudden onset right upper and lower quadrant abdominal pain beginning at 0430 today associated with nausea, vomiting, and diarrhea. Patient reports emesis x 2 that consisted of bile. Patient reports decreased p.o. intake. Patient denies dysuria, hematuria or urinary frequency. Reports last menstrual period as 06/05/2023. Denies prior abdominal surgeries. Reports mother with history of colitis. Denies dizziness, chest pain, shortness of breath. Prior similar symptoms: No Recent Illness/Hospitalization: No PFSH <Gila Patino RN - Last Filed: 06/19/23 16:17> PFSH Medical History (Updated 06/19/23 @ 15:45 by Gila Patino RN) Abdominal pain Arthritis Back pain Frequent headaches Knee pain Migraines Nausea vomiting and diarrhea Scoliosis Seasonal allergies Home Medications kcarzzxl-szs-Zg-FA 1 mg tablet 1 tab PO DAILY 03/09/22 [History Last Taken Unknown] drospirenone 3 mg-ethinyl estradiol 0.02 mg tablet (Vestura (28)) 1 tab PO DAILY 06/19/23 [History Last Taken Unknown] ondansetron 4 mg disintegrating tablet 4 mg PO Q8H PRN PRN Nausea #10 tabs 06/19/23 [Rx Last Taken Unknown] Allergy/AdvReac Type Severity Reaction Status Date / Time Sulfa (Sulfonamide Allergy Intermediate Rash Verified 06/19/23 14:28 Antibiotics) Family History Grandfather Myocardial infarction, Onset Age: 51 Grandmother Myocardial infarction, Onset Age: 61 Sister Asthma Mother Diabetes Hypertension Arthritis Uncle Myocardial infarction 2 uncles Surgical History History of placement of ear tubes History of tonsillectomy and adenoidectomy meniscus repair S/P ACL repair Social History Smoking Status: Never smoker alcohol intake: current alcohol intake frequency: holidays/special occasions only Alcohol type: wine substance use type: does not use what type of physical activity do you participate in: running and weight training frequency: 3-4 times per week ROS <Gila Patino RN - Last Filed: 06/19/23 16:17> ROS ED Constitutional Constitutional ED: Denies chills, fever(s) or sweats Eyes Eyes: Denies change in vision Cardiovascular Cardiovascular: Denies chest pain, palpitations or racing heartbeat Respiratory/Chest Respiratory/Chest: Denies cough or dyspnea Gastrointestinal Gastrointestinal: Reports abdominal pain, diarrhea, nausea and vomiting; Denies melena Genitourinary Genitourinary ED: Reports LMP (females 10-50) Details: Comment: (06/05/2023); Denies dysuria, hematuria or urinary frequency Neurologic Neurologic: Denies headache(s) or weakness EXAM <Gila Patino RN - Last Filed: 06/19/23 16:17> Physical Exam Const Vital Signs: 06/19/23 14:27 06/19/23 15:58 06/19/23 16:25 Temperature 98 F 96.3 F L Temperature Source Temporal Pulse Rate 111 H 72 62 Respiratory Rate 16 14 12 Blood Pressure 121/86 H 92/64 96/57 L Blood Pressure Mean 97 73 70 Pulse Ox 99 100 99 Oxygen Delivery Method Room Air Room Air Positive well nourished and well developed General Appearance ED: well developed and NAD HEENT Reports moist mucous membranes Eyes PERRL Neck no lymphadenopathy, supple and no JVD Chest Wall inspection of chest normal and palpation of chest normal Resp normal respiratory effort and clear to auscultation bilaterally Auscultation: Negative for rales, rhonchi or wheezes Cardio regular rate, S1 normal heart sound and S2 normal heart sound GI normal to inspection, nondistended, normoactive bowel sounds Inspection: Negative for abdominal distention Auscultation: normoactive bowel sounds Palpation: soft and tender RLQ and RUQ Extremity normal to inspection Neuro oriented x3 Sensorium / Orientation: alert Motor Exam: strength 5/5 throughout Psych mental status grossly normal Skin no rashes or lesions noted Skin Narrative: [place], warm and dry <Dr. Lei Zelaya MD - Last Filed: 06/19/23 16:29> Physical Exam Const Vital Signs: 06/19/23 14:27 06/19/23 15:58 06/19/23 16:25 Temperature 98 F 96.3 F L Temperature Source Temporal Pulse Rate 111 H 72 62 Respiratory Rate 16 14 12 Blood Pressure 121/86 H 92/64 96/57 L Blood Pressure Mean 97 73 70 Pulse Ox 99 100 99 Oxygen Delivery Method Room Air Room Air MDM <Gila Patino RN - Last Filed: 06/19/23 16:17> MDM MDM Narrative Medical decision making narrative: IV line initiated. Labwork obtained to evaluate for leukocytosis, anemia, and electrolyte derangement. CT abdomen/pelvis with IV contrast ordered to rule out appendicitis, colitis, or diverticulitis. History & Record Review Discussion w/independent historian: Patient Lab Data Labs: Laboratory Results - last 24 hr 06/19/23 14:54 WBC 11.6 H RBC 5.43 H Hgb 15.1 H Hct 44.7 MCV 82.3 MCH 27.8 MCHC 33.8 RDW Std Deviation 38.2 RDW Coeff of Nicola 12.9 Plt Count 219 MPV 11.3 Immature Gran % (Auto) 0.300 Neut % (Auto) 82.2 H Lymph % (Auto) 10.7 L [place] % (Auto) 5.4 Eos % (Auto) 0.8 Baso % (Auto) 0.6 Absolute Neuts (auto) 9.6 H Absolute Lymphs (auto) 1.24 Nucleated RBC % 0 Sodium 138 Potassium 3.8 Chloride 108 H Carbon Dioxide 22.0 Anion Gap 8 BUN 9 Creatinine 0.88 Estim Creat Clear Calc 92.29 Est GFR (MDRD) Af Amer 96 Est GFR (MDRD) Non-Af 80 BUN/Creatinine Ratio 10.2 Glucose 130 H Calcium 9.2 Total Bilirubin 0.50 AST 16 ALT 14 Alkaline Phosphatase 88 Total Protein 7.4 Albumin 3.5 Globulin 3.9 Albumin/Globulin Ratio 0.9 Lipase 24 Serum , Qual NEGATIVE Radiography Diagnostic Testing: Clinical Impression(s) from Imaging Studies Abdomen/Pelvis CT 06/19/23 14:44 IMPRESSION: Normal enhanced CT of the abdomen and pelvis. Electronically Signed: Julián Beltran MD at 15:26 EST , Differential Diagnosis Abdominal Pain: Appendicitis, Cholecystitis and Pancreatitis Management Discussion w/another healthcare provider: Other ( Dr. Dr. Zelaya, ED provider) Treatment and Re-Evaluation :: CBC reveals slightly elevated white count 11.6 with 82.2% neutrophils. Hemoglobin stable at 15.1. Chemistry shows a slightly elevated chloride at 108 and a elevated glucose at 130. Lipase normal at 24. Serum and negative. CT abdomen pelvis negative for appendicitis, colitis, diverticulitis. Patient diagnosed with gastroenteritis. Lab work and imaging explained to patient. Patient to be discharged home with instructions to increase fluid intake while vomiting and diarrhea. Follow-up with family doctor in 3 to 5 days if not improving. Patient agreeable with plan. <Dr. Lei Zelaya MD - Last Filed: 06/19/23 16:29> [facility] MDM Narrative Medical decision making narrative: IV line initiated. Labwork obtained to evaluate for leukocytosis, anemia, and electrolyte derangement. CT abdomen/pelvis with IV contrast ordered to rule out appendicitis, colitis, or diverticulitis. I have personally performed a face to face assessment of the patient and have reviewed the VALENTÍN Note. I performed a substantive portion of the visit including all aspects of the following. My antunez findings include: History is 33-year-old female this morning started having nausea vomiting diarrhea. No fever. No dysuria. No prior abdominal surgeries. Some mild right-sided abdominal pain. Exam is [13-year-old female vital signs stable afebrile does not look septic toxic. HEENT exam mildly dry mucous membranes. Otherwise unremarkable. Neck nontender no lymphadenopathy. Lungs clear to auscultation bilaterally. Heart regular rhythm no murmur. Abdomen soft, nondistended normal bowel sounds no peritoneal signs. Mild right upper quadrant right-sided tenderness. No Toney sign. No McBurney's point tenderness. No obstruction. No hernia or mass. Moving all 4 extremities. Nontender no edema. Neurologically she is awake and alert no focal motor deficits.] Medical Decision Making [young female suspect a viral gastroenteritis. Labs and CAT scan being obtained due to her abdominal pain even headache is secondary to viral syndrome.] Other additions or changes: [None] Lab Data Attestation: I reviewed the patient's lab results. Lab results narrative: CBC shows white count 9.6. H&H of 15 and 44. Platelets 219. Electrolytes show sodium 138 gap of 8. Normal BUN 9 creatinine 0.8. Glucose 130. Liver enzymes normal. Lipase normal at 24. test negative. CAT scan of the abdomen and pelvis shows no acute abnormality awaiting radiologist formal interpretation. Radiologist read is normal. Labs: Laboratory Results - last 24 hr 06/19/23 14:54 WBC 11.6 H RBC 5.43 H Hgb 15.1 H Hct 44.7 MCV 82.3 MCH 27.8 MCHC 33.8 RDW Std Deviation 38.2 RDW Coeff of Nicola 12.9 Plt Count 219 MPV 11.3 Immature Gran % (Auto) 0.300 Neut % (Auto) 82.2 H Lymph % (Auto) 10.7 L [place] % (Auto) 5.4 Eos % (Auto) 0.8 Baso % (Auto) 0.6 Absolute Neuts (auto) 9.6 H Absolute Lymphs (auto) 1.24 Nucleated RBC % 0 Sodium 138 Potassium 3.8 Chloride 108 H Carbon Dioxide 22.0 Anion Gap 8 BUN 9 Creatinine 0.88 Estim Creat Clear Calc 92.29 Est GFR (MDRD) Af Amer 96 Est GFR (MDRD) Non-Af 80 BUN/Creatinine Ratio 10.2 Glucose 130 H Calcium 9.2 Total Bilirubin 0.50 AST 16 ALT 14 Alkaline Phosphatase 88 Total Protein 7.4 Albumin 3.5 Globulin 3.9 Albumin/Globulin Ratio 0.9 Lipase 24 Serum , Qual NEGATIVE Radiography Diagnostic Testing: Clinical Impression(s) from Imaging Studies Abdomen/Pelvis CT 06/19/23 14:44 IMPRESSION: Normal enhanced CT of the abdomen and pelvis. Electronically Signed: Julián Beltran MD at 15:26 EST , Discharge Plan Triage Chief Complaint: Abd Pain ED Provider: Lei Zelaya Dx/Rx/DC Orders Clinical Impression: Nausea vomiting and diarrhea, Acute dehydration, Viral gastroenteritis, Gastroenteritis Instructions: ED Gastroenteritis, Viral (Adult) Prescriptions: New ondansetron 4 mg tablet,disintegrating 4 mg PO Q8H PRN PRN (Reason: Nausea) Qty: 10 0RF No Action bvjbdqgr-qha-Kb-FA 1 mg Tablet 1 tab PO DAILY drospirenone-ethinyl estradiol [Vestura (28)] 3-0.02 mg tablet 1 tab PO DAILY Patient Comments: TAKE 1 TABLET BY MOUTH EVERY DAY Primary Care Provider: Gerardo Ty Referrals: Gerardo Ty MD [Primary Care Provider] - Activity Restrictions/Additional Instructions: Increase fluids with vomiting and diarrhea. Follow-up with primary care doctor in 3 to 5 days if not improving. Use Zofran for nausea and vomiting as needed. Return for worsening symptoms. Disposition Disposition: Home, Self Care Discharge Date/Time: 06/19/23 16:27
[2023-06-19] MEDS: 0.9% Normal Saline (1000mL) 1,000 ML 1000 ML IV (14:54)
[2023-06-19 15:08] LABS: Absolute Lymphocyte Count 1.24 X10^3/uL (0.83-4.51); Absolute Neutrophil Count 9.6 X10^3/uL (2.0-7.7); Basophil# 0.07 X10^3/uL; Basophil% 0.6 % (0-1); Eosinophil# 0.09 X10^3/uL; Eosinophils% 0.8 % (0-5); Hematocrit 44.7 % (37-47); Hemoglobin 15.1 g/dL (12.0-15.0); Lymphocyte # 1.24 X10^3/ul (0.83-4.51); Lymphocyte % 10.7 % (19-41); Mean Corp Hgb Conc 33.8 g/dL (32-36); Mean Corpuscular Hgb 27.8 pg (27.0-32.0); Mean Corpuscular Volume 82.3 fL (81-99); Mean Platelet Vol. 11.3 fl (6.2-12.0); Monocyte# 0.63 X10^3/uL; Monocyte% 5.4 % (0-10); NRBC Flagged by Analyzer 0 % (0-5); Neutrophil # 9.56 X10^3/uL (2.7-7.7); Neutrophil % 82.2 % (47-70); Platelet Count 219 K/mm3 (150-450); RBC Distribution Width CV 12.9 % (11.6-14.6); RBC Distribution Width SD 38.2 fl (35.1-43.9); Red Blood Count 5.43 M/mm3 (4.2-5.4); White Blood Count 11.6 K/mm3 (4.4-11.0)
[2023-06-19 15:21] LABS: ALB/GLOB Ratio 0.9 RATIO (0.9-2.4); AST(SGOT) 16 U/L (15-37); Alanine Aminotransfer ALT/SGPT 14 U/L (13-56); Albumin, Serum 3.5 g/dL (3.2-5.0); Alkaline Phosphatase 88 U/L (45-117); Anion Gap 8 (5-15); BUN 9 mg/dL (7-18); BUN/Creat Ratio 10.2 RATIO (10-20); Calcium,Total 9.2 mg/dL (8.5-10.1); Chloride 108 mmol/L (98-107); Creatinine, Serum 0.88 mg/dL (0.55-1.02); EST Glomerular Filtration Rate 80 mL/min (>60); Est Glom Filt Rate - Afr Amer 96 mL/min (>60); Estimated Creatinine Clearance 92.29 ml/min; Globulin 3.9 g/dL (2.2-4.2); Glucose 130 mg/dL (74-106); Lipase 24 U/L (13-75); Potassium 3.8 mmol/L (3.5-5.1); Protein, Total 7.4 g/dL (6.4-8.2); Sodium Level 138 mmol/L (136-145)
[2023-06-19 15:41] LABS: Internal QC Validated? YES +Cl - CLEAR BKGD; Pregnancy, Serum, hCG Quali. NEGATIVE Negative
[2023-06-19 15:58] VITALS: BP 92/64; PULSE 72; RESP 14; O2SAT 100
[2023-06-19 16:25] VITALS: BP 96/57; PULSE 62; RESP 12; TEMP 35.7; O2SAT 99
--- OUTSIDE RECORDS SUMMARY | 2023-06-19 20:08 | XMS RPT_ITS | CCD ---
Author Name Unknown Address [address] [place] [address] Organization [facility] Care Team Providers Care Care Center Manager Name Role Phone Gerardo Ty MD Primary Care Provider [phone] MERCEDES BAKER, DR LYNNE Attending [facility] PHYSIC[facility], NONE Primary Care Unavailable GERARDO TY Primary Care Unavailable KATELIN COOPER Attending Unavailable ADRIENNE GRAY Referring Unavailable GERARDO TY Primary Care Unavailable ELVIA CRUM Attending Unavailable Allergies Allergy Classification Reported Allergen(s) Allergy Type Date of Onset Reaction(s) Facility (20 sources) Sulfonamides (Antibiotic); Translations: [SULFA (SULFONAMIDE ANTIBIOTICS)] Drug Intolerance 5 Rash [facility] Medications Current Medications Medication Drug Class(es) Dates Sig (Normalized) Sig (Original) Breast Pump (8 sources) Start: 12-27-2021 End: 12-27-2022 Breast Pump Use as directed 1 Each 0 12/27/2021 12/27/2022 Active Completed/Discontinued Medications Medication Drug Class(es) Dates Sig (Normalized) Sig (Original) aspirin 81 mg delayed release oral tablet (13 sources) Platelet Aggregation Inhibitor, Nonsteroidal Anti-inflammatory Drug End: 04-17-2022 take 1 tablet by mouth once daily aspirin, enteric coated (ASPIRIN, ENTERIC COATED) 81 mg EC tablet Take 81 mg by mouth once daily. 0 04/17/2022 Discontinued Problems Active Problems Problem Classification Problem Date Documented Date Episodic/Chronic Contraceptive and procreative management (2 sources) Subcutaneous contraceptive implant present; Translations: [Encounter for surveillance of implantable subdermal contraceptive] Episodic Immunizations and screening for infectious disease (2 sources) Vaccination needed; Translations: [Encounter for immunization] Episodic Other complications of (1 source) Maternal obesity complicating , childbirth and the puerperium, antepartum; Translations: [Obesity complicating , third trimester] Chronic Other complications of (1 source) Supervision of with history of infertility, first trimester; Translations: [Supervision of high-risk with history of infertility] Episodic Other nutritional; endocrine; and metabolic disorders (20 sources) Obese class I; Translations: [Obesity, unspecified] Onset: 07-18-2019 07-18-2019 Chronic Other and delivery including normal (20 sources) Patient encounter status; Translations: [Encounter for supervision of normal first , first trimester] Onset: 11-02-2021 Episodic Other screening for suspected conditions (not mental disorders or infectious disease) (1 source) Finding related to ; Translations: [Encounter for suspected problem with growth ruled out] Episodic Residual codes; unclassified (1 source) Gestation period, 8 weeks; Translations: [8 weeks gestation of ] Episodic Residual codes; unclassified (1 source) Gestation period, 12 weeks; Translations: [12 weeks gestation of ] Episodic Residual codes; unclassified (1 source) Gestation period, 16 weeks; Translations: [16 weeks gestation of ] Episodic Residual codes; unclassified (1 source) Gestation period, 20 weeks; Translations: [20 weeks gestation of ] Episodic Residual codes; unclassified (1 source) Gestation period, 24 weeks; Translations: [24 weeks gestation of ] Episodic Residual codes; unclassified (1 source) Gestation period, 28 weeks; Translations: [28 weeks gestation of ] Episodic Residual codes; unclassified (1 source) Gestation period, 30 weeks; Translations: [30 weeks gestation of ] Episodic Residual codes; unclassified (2 sources) Gestation period, 32 weeks; Translations: [32 weeks gestation of ] Episodic Residual codes; unclassified (1 source) Gestation period, 34 weeks; Translations: [34 weeks gestation of ] Episodic Residual codes; unclassified (1 source) Gestation period, 36 weeks; Translations: [36 weeks gestation of ] Episodic Residual codes; unclassified (1 source) Gestation period, 37 weeks; Translations: [37 weeks gestation of ] Episodic Past or Other Problems Problem Classification Problem Date Documented Da te Episodic/Chronic Other female genital disorders (19 sources) H/O: Disorder; Translations: [Personal history of other diseases of the female genital tract] Onset: 07-28-2021 Episodic Residual codes; unclassified (19 sources) Family history of cystic fibrosis; Translations: [Family history of other endocrine, nutritional and metabolic diseases] Onset: 07-28-2021 Episodic Screening and history of mental health and substance abuse codes (19 sources) H/O: anxiety state; Translations: [Personal history of other mental and behavioral disorders] Onset: 07-28-2021 Episodic Results Test Name Value Interpretation Reference Range Facil ity Vital Signs Date Time Vital Sign Value Performing Clinician Elsa rivera 10-26-2022 09:38-0400 Diastolic blood pressure 78 mm[Hg] Elvia Crum APRN.[facility] Work Phone: [facility] 10-26-2022 09:38-0400 Heart rate 82 /min Elvia Crum APRN.DISTRICT DIRECTOR Work Phone: [facility] 10-26-2022 09:38-0400 Respiratory rate 14 /min Elvia Crum APRN.DISTRICT DIRECTOR Work Phone: [facility] 10-26-2022 09:38-0400 SaO2% (BldA) [Mass fraction] 98 % Elvia Crum APRN.DISTRICT DIRECTOR Work Phone: [facility] 10-26-2022 09:38-0400 Systolic blood pressure 118 mm[Hg] Elvia Crum APRN.DISTRICT DIRECTOR Work Phone: [facility] 10-26-2022 08:41-0400 Body weight 86.64 kg Elvia Crum APRN.DISTRICT DIRECTOR Work Phone: [facility] 05-03-2022 13:58-0500 Body weight 82.56 kg Adrienne Gray MD Work Phone: [facility] 05-03-2022 13:58-0500 Diastolic blood pressure 68 mm[Hg] Adrienne Gray MD Work Phone: [facility] 05-03-2022 13:58-0500 Systolic blood pressure 114 mm[Hg] Adrienne Gray MD Work Phone: [facility] 04-17-2022 11:17-0500 Body height 158.1 cm Adrienne Gray MD Work Phone: [facility] 04-17-2022 11:17-0500 Body weight 83.01 kg Adrienne Gray MD Work Phone: [facility] 04-17-2022 11:17-0500 Diastolic blood pressure 68 mm[Hg] Adrienne Gray MD Work Phone: [facility] 04-17-2022 11:17-0500 Systolic blood pressure 112 mm[Hg] Adrienne Gray MD Work Phone: [facility] 02-28-2022 08:04-0400 Body weight 91.72 kg Katelin Plotpaloma DRAFTSPERSON.CNM Work Phone: [facility] 02-28-2022 08:04-0400 Diastolic blood pressure 64 mm[Hg] Katelin Plotts DRAFTSPERSON.CNM Work Phone: [facility] 02-28-2022 08:04-0400 Systolic blood pressure 108 mm[Hg] Katelin Plotts DRAFTSPERSON.CNM Work Phone: [facility] 02-21-2022 11:12-0400 Body weight 90.72 kg Gabo Montgomery MD Work Phone: [facility] 02-21-2022 11:12-0400 Diastolic blood pressure 70 mm[Hg] Gabo Montgomery MD Work Phone: [facility] 02-21-2022 11:12-0400 Systolic blood pressure 102 mm[Hg] Gabo Montgomery MD Work Phone: [facility] 02-07-2022 10:19-0400 Body weight 90.54 kg Iwnter Arthur DRAFTSPERSON.CNM Work Phone: [facility] 02-07-2022 10:19-0400 Diastolic blood pressure 62 mm[Hg] Winter Arthur DRAFTSPERSON.CNM Work Phone: [facility] 02-07-2022 10:19-0400 Systolic blood pressure 120 mm[Hg] Winter Arthur DRAFTSPERSON.CNM Work Phone: [facility] 01-23-2022 09:54-0400 Body weight 89.36 kg Winter Arthur DRAFTSPERSON.CNM Work Phone: [facility] 01-23-2022 09:54-0400 Diastolic blood pressure 70 mm[Hg] Winter Arthur DRAFTSPERSON.CNM Work Phone: [facility] 01-23-2022 09:54-0400 Systolic blood pressure 108 mm[Hg] Winter Arthur DRAFTSPERSON.CNM Work Phone: [facility] 01-10-2022 10:19-0400 Body weight 88 kg Katelin Plotts DRAFTSPERSON.CNM Work Phone: [facility] 01-10-2022 10:19-0400 Diastolic blood pressure 64 mm[Hg] Katelin Plotts DRAFTSPERSON.CNM Work Phone: [facility] 01-10-2022 10:19-0400 Systolic blood pressure 116 mm[Hg] Katelin Plotts DRAFTSPERSON.CNM Work Phone: [facility] 12-27-2021 09:19-0400 Body weight 88 kg Gabo Montgomery MD Work Phone: [facility] 12-27-2021 09:19-0400 Diastolic blood pressure 64 mm[Hg] Gabo Montgomery MD Work Phone: [facility] 12-27-2021 09:19-0400 Systolic blood pressure 108 mm[Hg] Gabo Montgomery MD Work Phone: [facility] 11-29-2021 10:28-0400 Body weight 84.64 kg Katelin Plotts DRAFTSPERSON.CNM Work Phone: [facility] 11-29-2021 10:28-0400 Diastolic blood pressure 78 mm[Hg] Katelin Plotts DRAFTSPERSON.CNM Work Phone: [facility] 11-29-2021 10:28-0400 Systolic blood pressure 120 mm[Hg] Katelin Plotts DRAFTSPERSON.CNM Work Phone: [facility] 11-02-2021 13:36-0400 Body weight 83.46 kg Adrienne Gray MD Work Phone: [facility] 11-02-2021 13:36-0400 Diastolic blood pressure 64 mm[Hg] Adrienne Gray MD Work Phone: [facility] 11-02-2021 13:36-0400 Systolic blood pressure 112 mm[Hg] Adrienne Gray MD Work Phone: [facility] 10-04-2021 10:22-0400 Body weight 81.65 kg Farida Huang MD Work Phone: [facility] 10-04-2021 10:22-0400 Diastolic blood pressure 60 mm[Hg] Farida Huang MD Work Phone: [facility] 10-04-2021 10:22-0400 Systolic blood pressure 110 mm[Hg] Farida Huang MD Work Phone: [facility] 08-09-2021 10:20-0400 Body height 158 cm Adrienne Gray MD Work Phone: [facility] 08-09-2021 10:20-0400 Body weight 80.74 kg Adrienne Gray MD Work Phone: [facility] 08-09-2021 10:20-0400 Diastolic blood pressure 72 mm[Hg] Adrienne Gray MD Work Phone: [facility] 08-09-2021 10:20-0400 Systolic blood pressure 108 mm[Hg] Adrienne Gray MD Work Phone: [facility] Encounters Encounter Date Encounter Type Care Provider Facility Start: 05-21-2023 End: 05-21-2023 ambulatory GERARDO TY Facility:[facility] Start: 04-18-2023 End: 04-18-2023 Emergency department patient visit DR GUERA LONG MD Facility: Start: 10-26-2022 End: 10-26-2022 ambulatory GERARDO TY Facility:[facility] Start: 10-26-2022 End: 10-26-2022 Patient encounter procedure Elvia Crum RAY.DISTRICT DIRECTOR Work Phone: OB/Gynecology Procedures Date Procedure Procedure Detail Performing Clinician Start: 05-03-2022 Urine test visual color cmprsn carisa Gray MD Work Phone: Start: 02-28-2022 URINE OB DIP B/O Nikos Cooper APRN.CNM Work Phone: Start: 02-21-2022 URINE OB DIP B/O Gabo Montgomery MD Work Phone: Start: 02-07-2022 INFLUENZA VACCINE QUADRIVALENT 6 MO - 64 YRS IM Winter Arthur APRN.CNM Work Phone: Start: 02-07-2022 URINE OB DIP B/O Marisela Arthur APRN.CNM Work Phone: Start: 01-23-2022 URINE OB DIP B/O Marisela Arthur APRN.CNM Work Phone: Start: 01-23-2022 Us preg uterus after 1st trimest 1/ gestation Gabo Montgomery MD Work Phone: Start: 01-10-2022 URINE OB DIP B/O Nikos Cooper APRN.CNM Work Phone: Start: 12-27-2021 URINE OB DIP B/O Gabo Montgomery MD Work Phone: Start: 11-29-2021 URINE OB DIP B/O Nikos Cooper APRN.CNM Work Phone: Start: 11-02-2021 URINE OB DIP B/O Celeste Gray MD Work Phone: Start: 10-04-2021 URINE OB DIP B/O Farida Huang MD Work Phone: Start: 09-08-2021 Us nuchal translucency 1st gestation Katelin Cooper APRN.CNM Work Phone: Plan of Treatment Date Care Activity Detail Author Start: 12-28-2031 Urine microalbumin profile DTAP,TDAP,TD (8 - Td or Tdap) [facility] Start: 08-09-2026 HPV TESTING HPV TESTING [facility] Start: 08-09-2026 PAP TESTING PAP TESTING [facility] Start: 08-09-2024 PAP TESTING PAP TESTING [facility] Start: 10-20-2023 PAP TESTING PAP TESTING [facility] Start: 04-30-2022 DEPRESSION ASSESSMENT DEPRESSION ASSESSMENT [facility] Start: 2022 HPV TESTING HPV TESTING [facility] Start: 12-29-2021 Influenza vaccination [facility] Start: 11-29-2021 End: 01-29-2022 CBC panel - Blood by Automated count CBC Lab Routine 24 weeks gestation of Encounter for supervision of normal first in second trimester Expected: 11/29/2021, Expires: 01/29/2022 [facility] Work Phone: Immunizations Immunization Date Immunization Notes Care Provider Violetta hays 02-07-2022 influenza, injectabl e, quadrivalent, contains preservative Winter Arthur APRN.CNM Work Phone: [facility] 12-27-2021 tetanus toxoid, redu ema diphtheria toxoid, and acellular pertussis vaccine, adsorbed Gabo Montgomery MD Work Phone: [facility] 05-07-2009 hepatitis B vaccine, pediatric or pediatric/adolescent dosage Nurse Wstr Work Phone: [facility] 12-07-2008 hepatitis B vaccine, pediatric or pediatric/adolescent dosage Nurse Wstr Work Phone: [facility] 11-03-2008 hepatitis B vaccine, pediatric or pediatric/adolescent dosage Nurse Wstr Work Phone: [facility] 03-02-2008 tetanus toxoid, redu ema diphtheria toxoid, and acellular pertussis vaccine, adsorbed Nurse Wstr Work Phone: [facility] Work Phone: 07-19-2007 human papilloma viru s vaccine, quadrivalent Nurse Wstr Work Phone: [facility] Work Phone: 04-29-2007 human papilloma viru s vaccine, quadrivalent Nurse Wstr Work Phone: [facility] Work Phone: 02-25-2007 human papilloma viru s vaccine, quadrivalent Nurse Wstr Work Phone: [facility] Work Phone: 02-25-2007 meningococcal polysaccharide vaccine (MPSV4) Nurse Wstr Work Phone: [facility] Work Phone: 11-28-1997 diphtheria, tetanus toxoids and acellular pertussis vaccine Nurse Wstr Work Phone: [facility] Work Phone: 11-28-1997 measles, mumps and rubella virus vaccine Nurse Wstr Work Phone: [facility] Work Phone: 11-28-1997 trivalent poliovirus vaccine, live, oral Nurse Wstr Work Phone: [facility] Work Phone: 04-28-1994 haemophilus influenz ae type b vaccine, conjugate unspecified formulation Nurse Wstr Work Phone: [facility] Work Phone: 02-24-1994 diphtheria, tetanus toxoids and pertussis vaccine Nurse Wstr Work Phone: [facility] Work Phone: 02-24-1994 haemophilus influenz ae type b vaccine, conjugate unspecified formulation Nurse Wstr Work Phone: [facility] Work Phone: 02-24-1994 measles, mumps and rubella virus vaccine Nurse Wstr Work Phone: [facility] Work Phone: 02-24-1994 trivalent poliovirus vaccine, live, oral Nurse Wstr Work Phone: [facility] Work Phone: 06-17-1993 diphtheria, tetanus toxoids and pertussis vaccine Nurse Wstr Work Phone: [facility] Work Phone: 06-17-1993 haemophilus influenz ae type b vaccine, conjugate unspecified formulation Nurse Wstr Work Phone: [facility] Work Phone: 1992 diphtheria, tetanus toxoids and pertussis vaccine Nurse Wstr Work Phone: [facility] Work Phone: 1992 haemophilus influenz ae type b vaccine, conjugate unspecified formulation Nurse Wstr Work Phone: [facility] Work Phone: 1992 trivalent poliovirus vaccine, live, oral Nurse Wstr Work Phone: [facility] Work Phone: 1992 diphtheria, tetanus toxoids and pertussis vaccine Nurse Wstr Work Phone: [facility] Work Phone: 1992 haemophilus influenz ae type b vaccine, conjugate unspecified formulation Nurse Wstr Work Phone: [facility] Work Phone: 1992 trivalent poliovirus vaccine, live, oral Nurse Wstr Work Phone: [facility] Work Phone: Payers Date Payer Category Payer Unknown [id number] 2020 Unknown [employer]I SPENCER PPO [id number] 2020-Present [phone] [address] [place] [address] PPO [id number] 2020 Unknown [id number] 1992 Unknown [id number] Social History Date Type Detail Facility Start: 12-27-2021 Tobacco smoking stat us NHIS Never smoked tobacco [facility] Work Phone: Start: 07-28-2021 End: 10-26-2022 Alcohol intake Ex-drinker (finding) [facility] Start: 11-26-2017 History SDOH Alcohol Comment Socially [facility] Start: 07-28-2021 Education 17 [facility] Start: 06-25-2021 [facility] Start: 1990 Sex Assigned At Female [facility] Start: 07-18-2021 End: 03-07-2022 Exposure to SARS-CoV-2 (event) Not sure [facility] Work Phone: Start: 12-27-2021 Tobacco use and exposure Smokeless tobacco non-user [facility] Goals Date Patient Goal Desired Activity /State Clinical Notes 02-17-2009 to 05-21-2023 Patient InstructionsAmy RAY Crum.DISTRICT DIRECTOR - 10/26/2022 8:37 AM EDTTelephone Encounter - Naz Edwards RN - 10/23/2022 12:01 PM EDTTelephone Encounter - Adrienne Gray MD - 10/23/2022 11:50 AM EDT Note Date & Type Note Facility 05-21-2023 Note HNO ID: [id number] Author: KATELIN COOPER APRN.CNM Service: ? Author Type: Dynamometer Tester Type: Progress Notes Filed: 05/21/2023 13:59 Note Text: Advertising Operations Manager offered: Patient declinesChristie Larsen is a 33 year old who presents for an annual gynecologic exam without complaints. Had Nexplanon removed earlier this year and went back to using OCP. Pleased with current OCP. Menses: cycles every 27 days and 4-6 days of flow. Contraception: combined hormonal contraceptives HPV vaccine: Yes Last Pap: 08/17/2021 normal HPV: negative History of abnormal pap: No Last mammogram: never Sexually active: Yes History of STDS: None History of ovarian cyst: Yes, History of PCOS: No Pain with intercourse: Yes Postcoital bleeding: No OB History T1 L1 SAB0 IAB0 Ectopic0 Multiple0 Live Births1 Melt Helper History LMP: 05/15/2023 (Exact Date), Unknown Age at Menarche: Age at First : Age at Menopause: Melt Helper History Comments: Sexual Activity: Yes; Male Contraception: Pill PAST MEDICAL HISTORY Diagnosis Date #[id number] Anemia Family history of cystic fibrosis 07/28/2021 07/28/2021atient's second cousin with cystic fibrosis. Patient states that she has never had any genetic carrier screening testing.TKRN history infertility Varicella without mention of complication 05/26/1994 PAST SURGICAL HISTORY Procedure Laterality Date ARTHROSCOPY KNEE DIAGNOSTIC W/WO SYNOVIAL BX SPX 07/10/2008 Arthroscopy, knee KNEE SURGERY HX Right 04/14/2016 miniscus repair PAST SURGICAL HISTORY OF Right 2004 ACL PAST SURGICAL HISTORY OF Left Meniscus repair TONSILLECTOMY AND ADENOIDECTOMY TYMPANOSTOMY LOCAL/TOPICAL ANESTHESIA FAMILY HISTORY Problem Relation Age of Onset Diabetes Mother other (IBS) Mother Hypertension Father No Known Problems Sister No Known Problems Brother Aneurysm Maternal Grandmother - brain aneurysm @ 69yrs of age Cancer Maternal Grandmother breast Diabetes Maternal Grandmother Heart Maternal Grandfather fatal RI @ 70yrs of age No Known Problems Paternal Grandmother Heart Paternal Grandfather Diabetes Maternal Aunt Diabetes Maternal Uncle other (multiple sclerosis) Paternal Aunt SOCIAL HISTORY Social History Tobacco Use Smoking status: Never Smokeless tobacco: Never Vaping Use Vaping Use: Never used Substance Use Topics Alcohol use: Not Currently Comment: Socially Drug use: No REVIEW OF SYSTEMS Abdomen: No abdominal pain, nausea, vomiting, diarrhea, or constipation. No bloating, early satiety, indigestion, or increased flatulence. Bladder: No dysuria, gross hematuria, urinary frequency, urinary urgency, or incontinence. Breast: No breast lumps, nipple d/c, overlying skin changes, redness or skin retraction. Allergies and current medication updated:Yes EXAM: BP 112/70 Ht 5' 2 (1.58m) Wt 183 lb (83.0kg) LMP 05/15/2023 BMI 33.46 kg/(m2). GENERAL: pleasant, female in no apparent distress HEENT: Normocephalic, atraumatic, and mucus membranes moist NECK: Supple and full range of motion DERMATOLOGY: Normal and without lesions BREAST: soft, non-tender, symmetric, no dominant mass, normal nipple-areolar complex, no lymphadenopathy, no nipple discharge, and fibrocystic changes CHEST: Normal inspiratory effort ABDOMEN: soft, non-tender, and no masses PELVIC: external genitalia normal, normal Bartholin's glands, urethra, Orinda's glands, no vulvar lesions, no cervical lesions, good vaginal support, physiologic discharge present, normal appearing perineal body and perianal region, well estrogenized BIMANUAL: uterus normal size, shape and consistency, no adnexal masses, non-tender, and no cervical motion tenderness RECTOVAGINAL: deferred. NEURO: alert and oriented x3,exam grossly non-focal EXTREMITIES: normal ASSESSMENT/PLAN: 1) Health maintenance: Pap/HPV up to date. Nutrition, exercise and routine health maintenance exams reviewed. HPV vaccine: completed series 2) Contraception: combined hormonal contraceptives. Contraceptive options reviewed and information provided. R/B/A to OCP reviewed and when to report any s/s 3) STD screening: Declined STD check. 4) Follow up one year or sooner as needed [facility]-26-[facility]22 Note HNO ID: [id number] Author: Elvia Crum APRN.DISTRICT DIRECTOR Service: ? Author Type: Nurse Practitioner Type: Progress Notes Filed: 10/26/2022 9:53 AM Note Text: Suzie is a 32 year old Female who presents for Nexplanon removal for abnormal bleeding. UNIVERSAL PROTOCOL / SAFETY CHECKLIST Procedure to be Performed: Nexplanon removal Sign In: A Moment of CARE was completed. Personnel directly involved with the procedure wore the appropriate PPE (Personal Protective Equipment). Patient/Surrogate Stated/Verified: PATIENT VERIFIED(optional for EMERGENT procedures): Patient name, Date of , Relevant allergies, and The intended procedure Time Out Communication: Intended patient and procedure match the source documents. Consent documented and matches the intended procedure. Medications required for procedure verified. Sign Out: SIGN OUT (optional for EMERGENT procedures): All instruments, equipment, possible retained foreign bodies accounted for. Post-procedure follow-up management communicated and Plan of Care Visit completed when applicable. TECHNIQUE: Patient placed in supine position with left arm bent at the elbow and placed over the head. Skin cleansed with betadine. 2 mL of 1% lidocaine with epi injected subQ along insertion site. Scalpel used to made a 5mm stab incision superficially at distal end of Nexplanon. Device removed under sterile technique with a small hemostat. Sterile pressure dressing applied. AANDP: 32 year old Female here for Nexplanon removal Nexplanon removed intact without difficulty. The patient was instructed to remove the dressing after 24 hours. Contraceptive plans OCP Elvia Crum APRN.BRANDT [facility] 10-26-2022 Instructions Elvia Crum APRN.BRANDT - 10/26/2022 9:33 AM EDT Oral Contraceptives: The Pill Beginning the Pill Pills come in either a 21 day pack or a 28 day pack. With the 21 day pack you will take one pill for 21 days then no pill for 7 days, during which time you will have what is known as withdrawal bleeding. The 28 day pack allows you to take a pill every day of the cycle with no interruptions. The first 21 pills are the pills with the active ingredients and the last 7 are the nonmedical pills (placebo) or they may contain iron. There will be bleeding during the week you are taking the nonmedical pills. The advantage to the 28 day pack is that you don t have to keep track of when you stopped the pill. There are a group of 28 day pills that contain 24 active pills and only 4 placebo pills. These are formulated to give you a putter in period. Unless otherwise instructed, you should start your pills the Sunday following your first day of bleeding with your next period (if your period starts on a Sunday, you should start pills the same day) Read your information packet that comes with the pills. Pill Benefits The pill is the most popular method of reversible control being used today. Millions of women rely on oral contraceptives as their control method. It is important to have an examination by your physician to determine if the pill is safe for you. There are several advantages associated with the pill: it is 97-98% effective when used correctly; may improve acne; periods are more regular and less painful; there is less iron deficiency anemia in pill users. bed bug exterminator use is associated with a decreased incidence of ovarian and uterine cancer. There is also no evidence that the pill increases the incidence of any cancer. How Oral Contraceptives Work Oral contraceptives come in two varieties. One is the combination pill which contains both estrogen and progesterone. Combination pills are considered 98-99% effective in preventing . This pill comes in either monophasic, which delivers the same amount of estrogen and progesterone throughout the cycle; and triphasic, which try tries to mimic the normal hormone cycle by changing the levels of the hormones in the pills during the month. There is no real advantage to taking the one over the other. The other type of pill only contains progesterone. It is best used for women who can t take estrogen. This type of pill is slightly less effective than the combination pill in preventing . It is VERY important to take the progesterone only pill at the same time every day. Oral contraceptives prevent ovulation (release of an egg from the ovary) by suppressing the pituitary gland s action. The pill does NOT prevent sexually transmitted disease. Obtaining a Prescription It is important to see your doctor before starting oral contraceptives so that you can have a full medical history taken and a physical examination given. Certain medical conditions may make the pill inappropriate for you, therefore it is very important to be honest and as complete as possible with the information you share with your doctor. The types of predisposing factors which would make the pill a poor choice of control would include: History of blood clots Stroke Serious liver disease or impaired liver function Unexplained vaginal bleeding or Cancer of the reproductive system Active gall bladder disease Hypertension Possible Side Effects It can take up to three months for your body to become adjusted to the pill. The more common side effects experienced at this time are: breakthrough spotting or bleeding, which is bleeding at any other time other than when you should be having a period; nausea or vomiting; breast tenderness; and mild fluid retention. There is no residential weight gain with the use of the pill. Breakthrough bleeding is the most common complaint of new pill users. There is no way to predict who will have it and there is no way of preventing it. Breakthrough bleeding usually subsides on its own with no further treatment after the first three months of taking the pill. If these symptoms continue to occur after the first three months you should check with your physician to see if there is any physical cause and possibly change to another control pill. Problems: Missed 1 pill: Take 2 pills the next day. Missed 2 pills: Take 2 pills the next day and 2 pills the following day. Also use another form of control (condoms) along with the pill for the rest of the month. Missed 3 or more pills: You have two choices. You can take two pills each day until you are on schedule, plus use an additional form of control along with the pill for the rest of the month. Or you can stop the pill and start a completely new pack of pills the next Sunday. You must use another form of control with the pill for at least the first two weeks of the new pack. You re ill and you have been vomiting or have diarrhea: You must use another form of control with the pill since the pill may not be fully absorbed during your illness. Continue to use the added control until the end of the cycle. Desire to become : Stop using the pill for one month before trying to become . Taking other medications: The control pill is less effective when you take the antibiotic Rifampin, epilepsy (seizure) drugs such as phenytoin, carbamazepine, phenobarbital, topiramate and some medications for HIV. Let your doctor know if you start taking any of these medications while on the pill. Symptoms to Notify Your Doctor with Immediately: Pain in your chest or legs Continuous blurred vision Severe headaches Slurred speech Tingling or weakness on one side of your body Shortness of breath Swelling of one leg Refills of Control Pills You need to see a doctor every year for a refill of your prescription. This is necessary in order that your health can be monitored closely while you are taking control pills. If your prescription should before your next scheduled appointment you can usually get a one month extension from your doctors office if you call during regular business hours about one week before you need to start the new package of pills. This allows the physician to refer to your chart for necessary health information. documented in this encounter [facility] 10-26-2022 History of Presen t illness Narrative Suzie is a 32 year old Female who presents for Nexplanon removal for abnormal bleeding. UNIVERSAL PROTOCOL / SAFETY CHECKLIST Procedure to be Performed: Nexplanon removal Sign In: A Moment of CARE was completed. Personnel directly involved with the procedure wore the appropriate PPE (Personal Protective Equipment). Patient/Surrogate Stated/Verified: PATIENT VERIFIED(optional for EMERGENT procedures): Patient name, Date of , Relevant allergies, and The intended procedure Time Out Communication: Intended patient and procedure match the source documents. Consent documented and matches the intended procedure. Medications required for procedure verified. Sign Out: SIGN OUT (optional for EMERGENT procedures): All instruments, equipment, possible retained foreign bodies accounted for. Post-procedure follow-up management communicated and Plan of Care Visit completed when applicable. TECHNIQUE: Patient placed in supine position with left arm bent at the elbow and placed over the head. Skin cleansed with betadine. 2 mL of 1% lidocaine with epi injected subQ along insertion site. Scalpel used to made a 5mm stab incision superficially at distal end of Nexplanon. Device removed under sterile technique with a small hemostat. Sterile pressure dressing applied. A&P: 32 year old Female here for Nexplanon removal Nexplanon removed intact without difficulty. The patient was instructed to remove the dressing after 24 hours. Contraceptive plans OCP Elvia Crum APRN.BRANDT documented in this encounter [facility] 10-23-2022 Miscellaneous Notes Formattin g of this note might be different from the original. Patient notified and voiced understanding. Patient did not want to wait for next available appointment with RR. Appointment given for this week per request. Naz Edwards RN noted. Please schedule her w/ me. Thanks. Adrienne Gray MD Patient calling requesting order to have Nexplanon removed. Device was inserted on 05/03/22 and patient states she has had irregular bleeding since insertion. Patient also has complaints of increased acne as well. Patient wanting to go back on an OCP. Patient is aware provider is out of the office until Sunday. Nexplanon removal order pended. Will need to call patient back to schedule if approved. Naz Edwards RN documented in this encounter [facility] 05-03-2022 Instructions Flor Oliveros Ma - 05/03/2022 1:58 PM EST NEXPLANON PATIENT EDUCATION You may remove dressing in 24 hours. Expect some bruising around insertion site. You may take over the counter pain medication (i.e. Tylenol, motrin, advil, etc) if you have discomfort. Call your provider with excessive bruising or pain. Continue to use condoms for STD prevention. You should use backup contraception for 7 days to prevent . documented in this encounter [facility] 05-03-2022 History of Presen t illness Narrative Suzie is a 32 year old patient who presents for Nexplanon insertion. Patient's last menstrual period was 06/11/2021 (exact date). VITALS: Wt 182 lb (82.6kg) LMP 06/11/2021 test: negative Nexplanon lot #: [id number] Exp date: 08/03/2024 UNIVERSAL PROTOCOL / SAFETY CHECKLIST Procedure to be Performed: Nexplanon insertion Sign In: A Moment of CARE was completed. Personnel directly involved with the procedure wore the appropriate PPE (Personal Protective Equipment). Patient/Surrogate Stated/Verified: PATIENT VERIFIED(optional for EMERGENT procedures): Patient name, Date of , Relevant allergies, and The intended procedure Time Out Communication: Intended patient and procedure match the source documents. Consent documented and matches the intended procedure. Implant(s) inserted: Correct implant(s) confirmed including size and side. and Expiration date(s) reviewed. Sign Out: SIGN OUT (optional for EMERGENT procedures): No specimen collected. All instruments, equipment, possible retained foreign bodies accounted for. Post-procedure follow-up management communicated and Plan of Care Visit completed when applicable. Adrienne Gray M.D. TECHNIQUE: Patient placed in supine position with left) bent at the elbow and placed over the head. Skin cleansed with betadine. 0.2mL of 0.5 % bupivicaine w/ epinephrine injected subQ along insertion site. Nexplanon maurice inserted under sterile technique. After insertion by the provider, the maurice was palpable under the skin by both patient and provider. Steristrips and sterile pressure dressing applied. A&P: Nexplanon inserted without complications. The patient was instructed to remove the dressing after 24 hours. Adrienne Gray MD documented in this encounter [facility] 04-17-2022 History of Presen t illness Narrative VISIT Suzie Hollins is a 31 year old year old here for visit. Delivery Summary: ROS/ Recovery: Feeding: Breast and bottle feeding problems: None Menses since delivery: n/a Menstrual pattern prior to : Regular periods [place] since delivery: Not resumed Depression: denies symptoms of depression. OB Depression and Anxiety Screening- This Encounter (since 04/16/2022) Over the past 2 weeks have you felt down, depressed, or hopeless? Negative Over the past two weeks, have you felt little interest or pleasure in doing things? Negative Feeling nervous, anxious or on edge 0-Not at all Not being able to stop or control worrying 0-Not al all Anxiety Pre-Screening Total (If >/= 3 additional questions will be reviewed) 0 Emotional support: Yes Bowel symptoms: Negative for abdominal discomfort, blood in stools or black stools and change in bowel habits Abdomen: She reports no incisional redness, tenderness, erythema Bladder symptoms: No dysuria, gross hematuria, urinary frequency, urinary urgency, or incontinence Other issues: None Last Pap: 2021 normal HPV: N/A PAST MEDICAL HISTORY Diagnosis Date #[id number] Anemia history infertility Varicella without mention of complication 05/26/1994 PAST SURGICAL HISTORY Procedure Laterality Date ARTHROSCOPY KNEE DIAGNOSTIC W/WO SYNOVIAL BX SPX 07/10/2008 Arthroscopy, knee KNEE SURGERY HX Right 04/14/2016 miniscus repair PAST SURGICAL HISTORY OF Right 2004 ACL PAST SURGICAL HISTORY OF Left Meniscus repair TONSILLECTOMY & ADENOIDECTOMY <AGE 14 TYMPANOSTOMY LOCAL/TOPICAL ANESTHESIA FAMILY HISTORY Problem Relation Age of Onset Diabetes Mother other (IBS) Mother Hypertension Father No Known Problems Sister No Known Problems Brother Aneurysm Maternal Grandmother - brain aneurysm @ 69yrs of age Cancer Maternal Grandmother breast Diabetes Maternal Grandmother Heart Maternal Grandfather fatal RI @ 70yrs of age No Known Problems Paternal Grandmother Heart Paternal Grandfather Diabetes Maternal Aunt Diabetes Maternal Uncle other (multiple sclerosis) Paternal Aunt Social History Tobacco Use Smoking status: Never Smokeless tobacco: Never Vaping Use Vaping Use: Never used Substance Use Topics Alcohol use: Not Currently Comment: Socially Drug use: No PHYSICAL EXAMINATION: BP 112/68 Ht 5' 2.25 (1.58m) Wt 183 lb (83.0kg) LMP 06/11/2021 BMI 33.21 kg/(m^2). GENERAL: pleasant, female in no apparent distress HEENT: Normocephalic, atraumatic, mucus membranes moist, and no lesions NECK: Supple, full range of motion, no adenopathy, and thyroid normal DERMATOLOGY: Normal, without lesions, non-icteric, and non-hirsute BREAST: soft, non-tender, symmetric, no dominant mass, normal nipple-areolar complex, no lymphadenopathy, and no nipple discharge CHEST: Normal inspiratory effort ABDOMEN: soft, non-tender, and no masses. INCISION: No incisional redness, swelling, or drainage PELVIC: external genitalia normal, normal Bartholin's glands, urethra, Orinda's glands, no vulvar lesions, no cervical lesions, good vaginal support, physiologic discharge present, normal appearing perineal body and perianal region BIMANUAL: uterus normal size, shape and consistency, no adnexal masses, and non-tender NEURO: alert and oriented x3,exam grossly non-focal EXTREMITIES: normal ASSESSMENT AND PLAN: 31 year old status post with normal course. Contraception plan: nexplanon Follow up: RTC for annual exams and PRN Adrienne Gray MD documented in this encounter [facility] 03-13-2022 History of Presen t illness Narrative Patient delivered via by [facility] on 03/09/22 at [facility]. See OB history. Noemi Dobbs RN documented in this encounter [facility] 02-28-2022 Miscellaneous Notes Formattin g of this note might be different from the original. Suzie Hollins is a 31 year old female who presents at 37w3d Estimated Date of Delivery: 03/18/22 for a routine visit. Good movement. Denies headache, visual changes, chest pain, shortness of breath, vaginal bleeding, leakage of fluid, or dysuria. Feeling well, no complaints. Size equal to dates. 23 lbsTWG. Labor precautions reviewed. RTC in 1 week or sooner. Katelin Cooper APRN.CNM documented in this encounter [facility] 02-28-2022 Instructions Benito Reveles Cma - 02/28/2022 8:05 AM EDT SEQUENTIAL SCREENINGS The [facility] offers sequential screenings for women who are interested in screenings for chromosomal abnormalities and certain defects during a . The sequential screen combines ultrasound and blood tests to determine the risk of chromosomal abnormalities, including Down's Syndrome (Trisomy 21) and Trisomy 18, as well as open neural tube defects including spina bifida. Ultrasound examination is performed between 11 weeks and 13 weeks gestational age. Blood tests are drawn after the ultrasound and again later in the between 15 and 21 weeks gestational age. Please let your physician know if you are interested in this testing. It will require an appointment with our patient service technician pst. This is not an ultrasound performed by a physician in our office during a routine visit. SIGNS AND SYMPTOMS OF LABOR 1. Contractions every 10 minutes or more often 2. Clear, pink, or brownish fluid (water) leaking from vagina 3. Feeling that baby is pushing down, pressure 4. Low, dull backache 5. Cramps that feel like a period 6. Cramps with or without diarrhea If you notice any of the above symptoms, contact our office at [phone] and ask to speak with a nurse. After hours, you can call doctors registry at [phone] OR call [facility] at [phone] and ask to have the doctor front end loader driver paged. If you consider this an emergency, dial 6-1-4 or go to your nearest emergency department. NEED HELP? Are you dealing with a violent or abusive relationship? Are you a victim of rape or sexual assult? Call [facility] ([facility] 24 hour Crisis Hotline: 504.976.3235 or 006-884-4101. MANUAL Your Guide to a Healthy manual is now on-line. Visit [email or web address] [email or web address] to download your free copy documented in this encounter [facility] 02-21-2022 Miscellaneous Notes Formattin g of this note might be different from the original. KJ - No VB/LOF/ctxs. Reports good FM. TAUS: confirms vtx A&P: GBS today Reviewed PTL & FM precautions Gabo Montgomery MD documented in this encounter [facility] 02-21-2022 Instructions Pati Shields Ma - 02/21/2022 11:05 AM EDT SEQUENTIAL SCREENINGS The [facility] offers sequential screenings for women who are interested in screenings for chromosomal abnormalities and certain defects during a . The sequential screen combines ultrasound and blood tests to determine the risk of chromosomal abnormalities, including Down's Syndrome (Trisomy 21) and Trisomy 18, as well as open neural tube defects including spina bifida. Ultrasound examination is performed between 11 weeks and 13 weeks gestational age. Blood tests are drawn after the ultrasound and again later in the between 15 and 21 weeks gestational age. Please let your physician know if you are interested in this testing. It will require an appointment with our patient service technician pst. This is not an ultrasound performed by a physician in our office during a routine visit. SIGNS AND SYMPTOMS OF LABOR 1. Contractions every 10 minutes or more often 2. Clear, pink, or brownish fluid (water) leaking from vagina 3. Feeling that baby is pushing down, pressure 4. Low, dull backache 5. Cramps that feel like a period 6. Cramps with or without diarrhea If you notice any of the above symptoms, contact our office at [phone] and ask to speak with a nurse. After hours, you can call doctors registry at [phone] OR call [facility] at [phone] and ask to have the doctor front end loader driver paged. If you consider this an emergency, dial or go to your nearest emergency department. NEED HELP? Are you dealing with a violent or abusive relationship? Are you a victim of rape or sexual assult? Call [facility] ([place]) 24 hour Crisis Hotline: 621.777.2633 or 288-461-3259. MANUAL Your Guide to a Healthy manual is now on-line. Visit [email or web address] [email or web address] to download your free copy documented in this encounter [facility] 02-07-2022 Miscellaneous Notes Formattin g of this note might be different from the original. FRANKLIN-S: Suzie Hollins is a 31 year old female who presents at 34w3d with LIZBETH:03/18/2022, by Last Menstrual Period for a routine visit. Good FM. Denies headache, visual changes, chest pain, shortness of breath, vaginal bleeding, leakage of fluid, or dysuria. Feeling well, no complaints. O: See flow sheet Gen: No apparent distress Abd: Gravid, nontender S=D, 20lb TWG, cephalic ASSESSMENT/PLAN: 1. 34 weeks gestation of 2. Encounter for supervision of normal first in third trimester 3. Need for influenza vaccination P: 1) PTL precautions reviewed and when to call 2) RTO in 2 weeks 3) Growth US 48th percentile 4lb 7oz and MECHELLE normal at 32w2d 4) GBS next visit 5) Reviewed ways to support spontaneous labor Winter Arthur APRN.CNM documented in this encounter [facility] 02-07-2022 Instructions Winter Arthur APRN.CNM - 02/07/2022 10:15 AM EDT Images from the original note were not included. _ Group B Strep In What is group B strep (GBS)? GBS is one of many common bacteria that live in the human body without causing harm in healthy people.GBS can be found in the intestine, rectum, and vagina in about 2 of every 10 women near the time of . GBS is not a sexually transmitted infection anddoes not cause any vaginal symptoms. When does GBS cause infection? GBS can cause your baby to get pneumonia or a blood infection if your baby gets GBS from your vagina during .Full-term babies whose mothers carry GBS in the vagina at the time of have a 1 in 200 chance of getting sick from GBS during the first few days after . Women who have GBS in their vagina during labor can get an infection in their uterus. How do I know if I carry GBS? Some women have GBS all the time. In many women, it grows in the vagina at times then goes away and comes back again later. During a visit when you are between 35 and 37 weeks , you or your health care provider will collect a sample by touching the outer part of your vagina and just inside the anus with a sterile Q-tip. If GBS grows from that sample, you will be told that you carry GBS and this will be recorded in your chart. You or your provider can write the test results in the box on the next page so you have a record. How can infection from GBS be prevented? If your culture is positive for GBS within 5 weeks of giving , it is very likely that you will still have GBS in your vagina when you go into labor.Your health care provider will recommend that you receive the antibiotic penicillin during labor. GBS is very sensitive to penicillin and is easily removed from the vagina. A few IV doses of penicillin given up to 4 hours before almost always prevents your baby from picking up GBS during . Do I have to wait for labor to take penicillin? GBS is usually not harmful to you or your baby before you are in labor.GBS is easy to remove from the vagina, but iti s not easy to remove from the intestine.If you take penicillin before you are in labor,GBS will return to the vagina as soon as you stop taking the medication, which does not get rid of GBS in your intestine. It is best to take penicillin during labor when it can get rid of the GBS in your vagina quickly and best prevent your baby from getting sick. The one exception is that GBS can occasionally cause a urinary tract infection during . If you get a urinary tract infection, you should be treated with antibiotics at that time.You should also receive penicillin again when you are in labor. What if I don t have time to get penicillin while I m in labor? If you carry GBS in your vagina at the time of and are not able to receive penicillin before your baby is born, your baby will be watched closely for signs of GBS infection. Almost all babies who develop GBS infection will show signs within 24 hours of being born. How do I know if my baby has a GBS infection? If your baby gets a GBS infection, symptoms include difficulty breathing (including grunting or being pale), problems with temperature (too cold or too hot), difficulty with more spitting up than usual, or extreme sleepiness that interferes with . What is the treatment if my baby has a GBS infection? If the infection is caught early and your baby is full-term, most babies will completely recover with IV antibiotic treatment. Of the babies who get sick, about 1 in 6 can have serious complications. Some babies who are very sick will .In most cases, if you carry GBS in the vagina at the time of and are given IV penicillin in labor, the risk of your baby getting sick is very rare (about 1 in 4,000). What if I m allergic to penicillin? Penicillin is the best antibiotic for preventing GBS infection. However, women who are allergic to penicillin can receive different antibiotics during labor.Tell your health care provider if you are allergic to penicillin and what symptoms you had when you had that allergic reaction. For More Information: Centers for Disease Control and Prevention: www.cdc.gov/groupbstrep/ [facility] http://www.marchofdimes.org/pr egbradency/g wjqa-s-rzflz-infection.aspx Preparing for labor: Eat dates to promote spontaneous labor! Has an oxytocin-like effect on the body, leading to increased sensitivity of the uterus. Stimulates uterine contractions. Reduces hemorrhage the way oxytocin does. Date fruit contains saturated and unsaturated fatty acids such as oleic, linoleic, and linolenic acids, which are involved in saving and supplying energy and construction of prostaglandins. In addition, serotonin, tannin, and calcium in date fruit contribute to the contraction of smooth muscles of the uterus. Date fruit also has a laxative effect, which stimulates uterine contractions. Six dates per day is the magic number--provided that you re eating smaller deglet noor dates. Deglet noor dates are about 1 inch long. Medjool dates can be up to 2 inches long. If you re eating medjool dates, you only need about 3 dates to reach the 75 grams recommended in the studies. Not sure which type of date you have in your refrigerator? It s probably a deglet noor. How to Eat Dates During Dates are a healthy and delicious snack, so how can you add them to your diet? Add dates during in this awesome oatmeal recipe. Add dates to replace sugar in your favorite recipe or to lisseth your homemade almond milk. Use dates and nuts to make an easy pie crust in the food service agent. Add soaked dates to homemade nut butter for a sweet treat. Add dates to lisseth homemade salad dressing. Add dates during easily with these yummy (paleo friendly) bars made from dates. What Is Red Raspberry [place] Tea? Red raspberry leaf tea comes from the leaves of the red raspberry plant. This herbal tea has been used for centuries to support respiratory, digestive and uterine health, particularly during and childbearing years. While usually known as a female herb, red raspberry leaf tea can also help support the prostate and various stomach ailments in children. How It Can Help and Red raspberry leaf tea can help to make labor faster and reduce complications and interventions during . One study found that women who consumed RRL tea regularly are less likely to go overdue or give prematurely. These women may also be less likely to receive an artificial rupture of their membranes or require a section, forceps, or vacuum than the women in the control group. Red raspberry leaf has many other benefits to , , and too. How Much Red Raspberry [place] Tea to Drink? With your doctor or registered midwife s approval, start with 1 cup of red raspberry leaf tea per day starting in the second trimester. Watch for any uterine cramping or other reactions. If you don t experience any, you can talk to your healthcare provider about increasing to 2 cups per day. Again, watch for any uterine cramping. If you notice any, cut back on your dosage for two weeks and try again. Keep in mind, some moms have irritable uteruses and can only drink red raspberry leaf tea once they reach their due date because of uterine cramping. Is Red Raspberry [place] Tea the Same as Raspberry [place] Tea? How About Plain Old Raspberry Tea? Sometimes. You really need to look at the ingredients to be sure. Note that there is no difference between red raspberry leaf and raspberry leaf. Guarnic or [facility] Raspberry [place] Tea are two good brands. The red raspberry leaf teas that we recommend are 100% red raspberry leaf. Other teas labeled as raspberry are often a blend of rosehips, hibiscus, raspberry leaves, and raspberry flavor. So they may not be as effective. The teas to avoid are raspberry-flavored herbal teas, which may have ingredients like hibiscus, yamileth hips, apples, elderberries, natural and artificial raspberry flavors. Teas like this don t contain raspberry leaf at all and thus won t offer any of the potential benefits of RRLT outlined in this article. The [employer] www.[employer] I named this 'circuit' after my friend Henriettamagi Alfonso, who shared and discussed it with me when I was working with a client whose labor seemed to be stalled out and no longer progressing... This circuit is useful to help get the baby lined up, ideally, in the Left Occiput Anterior (HUBER) Position, both before labor begins and when some corrections need to be done during labor. Prenatally, this position set can help to rotate a baby. As a natural method of induction, this can help get things going if baby just needed a gentle nudge of position to set things off. To the best of my knowledge, this group of positions will not hurt a baby that is already lined up correctly. - Shiloh Gunter Before you Begin..... This circuit takes at least 90 minutes to complete so clear your schedule and make mental preparations so you can relax in your environment. The second step requires a lot of pillows so gather them up before beginning Before starting, you should empty your bladder! Have a nice drink nearby, and make sure it has a straw! If you are having contractions, this circuit should bedone through contractions, try not to change positions between steps Step One: Open-knee Chest Stay in this position for 30 minutes, start in cat/cow, then drop your chest as low as you can to the bed or the floor and your bottom as high as you can. Knees should be fairly wide apart, and the angle between the torso/thighs should be wider than 90 degrees. Wiggle around, prop with lots of pillows and use this time to get totally relaxed. This position allows the baby to scoot out of the pelvis a bit and gives them room to rotate, shift their head position, etc. If the person finds it helpful,careful positioning with a rebozo under the belly, with gentle tension from a support person behindcan help maintain this position for the full 30minutes. Step Two: Exaggerated Left Side Lying Roll to your left side, bringing your top leg as high as possible and keeping your bottom leg straight. Roll forward as much as possible,again using a lot of pillows. Sink into the bed and relax some more. If you fall asleep, that's totally okay and you can stay there! If not, stay here for at least another half an hour. Try and get your top right leg up towards your head and get as rolled over onto your belly as much as possible. If you repeat the circuit during labor, try alternating left and right sides. We know the photo the left is actually right side... just flip the image in your head. Step Three: Moving and Lunges Lunge, walk stairs facing sideways, 2 at a time, (have a energy trading analyst downstairs of you!), take a walk outside with one foot on the curb and the other on the street, sit on a ball and hula- anything that's upright and putting your pelvis in open, asymmetrical positions. Spend at least 30 minutes doing this one as well to give your baby a chance to move down. If you are lunging or stair or curb walking, you should lunge/walk/go up stairs in the direction that feels better to you. The antunez with the lunge is that the toes of the higher leg and mom's belly button should be at right angles. Do not lunge over your knee, that closes the pelvis. Henrietta Alfonso: Circuit Creator - www.powderhornAsurinttidalhealth [facility]birthcollective. [employer] Shiloh Gunter, CD, BDT (GANGA), LCCE, FACCE: Supporting Content - www.shilohMedicalisrich.[employer] Ana Padilla: Photography - www.jen2U.[employer] Charlotte Lamas CD/CDT (ÁNGEL): Print and Life Skills Teacher - www.[employer] www.Torqeedo.[employer] SIGNS AND SYMPTOMS OF LABOR 1. Contractions every 10 minutes or more often 2. Clear, pink, or brownish fluid (water) leaking from vagina 3. Feeling that baby is pushing down, pressure 4. Low, dull backache 5. Cramps that feel like a period 6. Cramps with or without diarrhea If you notice any of the above symptoms, contact our office at [phone] and ask to speak with a nurse. After hours, you can call doctors registry at [phone] OR call [facility] at [phone] and ask to have the doctor front end loader driver paged. If you consider this an emergency, dial 12-29-5 or go to your nearest emergency department. NEED HELP? Are you dealing with a violent or abusive relationship? Are you a victim of rape or sexual assult? Call [facility] ([place]) 24 hour Crisis Hotline: 847.566.4375 or 019-246-2357. MANUAL Your Guide to a Healthy manual is now on-line. Visit [facility].org/HealthyPre gnancyGuide to download your free copy documented in this encounter [facility] 01-23-2022 Miscellaneous Notes Formattin g of this note might be different from the original. FRANKLIN-S: Suzie Hollins is a 31 year old female who presents at 32w2d with LIZBETH:03/18/2022, by Last Menstrual Period for a routine visit. Good FM. Denies headache, visual changes, chest pain, shortness of breath, vaginal bleeding, leakage of fluid, or dysuria. Feeling well, no complaints. Continues ASA O: See flow sheet Gen: No apparent distress Abd: Gravid, nontender S=D, 18lb TWG ASSESSMENT/PLAN: 1. 32 weeks gestation of P: 1) PTL precautions reviewed and when to call 2) RTO in 2 weeks 3) Prepregnancy BMI 32, continue ASA Winter Arthur APRN.CNM documented in this encounter [facility] 01-23-2022 Majo Reveles Cma - 01/23/2022 9:51 AM EDT SEQUENTIAL SCREENINGS The [facility] offers sequential screenings for women who are interested in screenings for chromosomal abnormalities and certain defects during a . The sequential screen combines ultrasound and blood tests to determine the risk of chromosomal abnormalities, including Down's Syndrome (Trisomy 21) and Trisomy 18, as well as open neural tube defects including spina bifida. Ultrasound examination is performed between 11 weeks and 13 weeks gestational age. Blood tests are drawn after the ultrasound and again later in the between 15 and 21 weeks gestational age. Please let your physician know if you are interested in this testing. It will require an appointment with our patient service technician pst. This is not an ultrasound performed by a physician in our office during a routine visit. SIGNS AND SYMPTOMS OF LABOR 1. Contractions every 10 minutes or more often 2. Clear, pink, or brownish fluid (water) leaking from vagina 3. Feeling that baby is pushing down, pressure 4. Low, dull backache 5. Cramps that feel like a period 6. Cramps with or without diarrhea If you notice any of the above symptoms, contact our office at [phone] and ask to speak with a nurse. After hours, you can call doctors registry at [phone] OR call [facility] at [phone] and ask to have the doctor front end loader driver paged. If you consider this an emergency, dial 7-9-0 or go to your nearest emergency department. NEED HELP? Are you dealing with a violent or abusive relationship? Are you a victim of rape or sexual assult? Call [facility] ([place]) 24 hour Crisis Hotline: 499.213.9811 or 571-659-4998. MANUAL Your Guide to a Healthy manual is now on-line. Visit [facility].org/HealthyPre gnancyGuide to download your free copy documented in this encounter [facility] 01-16-2022 Miscellaneous Notes Formattin g of this note might be different from the original. Order signed and faxed. Naz Edwards RN Breast pump request received from [employer]. Order to RR to sign, will fax once signed. Naz Edwards RN documented in this encounter [facility] 01-10-2022 Miscellaneous Notes Formattin g of this note might be different from the original. Suzie Hollins is a 31 year old female who presents at 30w3d for a routine visit. Good movement. Denies headache, visual changes, chest pain, shortness of breath, vaginal bleeding, leakage of fluid, or dysuria. C/O hip pain- just came from chiropractor. Size greater than dates. Measuring 2 weeks ahead. 15 lbs.TWG. PTL precautions and kick counts reviewed. RTC in 2 weeks- growth US and KIMBERLY or sooner if needed. aKtelin Cooper APRN.CNM documented in this encounter [facility] 01-10-2022 Majo Oliveros Ma - 01/10/2022 10:16 AM EDT SEQUENTIAL SCREENINGS The [facility] offers sequential screenings for women who are interested in screenings for chromosomal abnormalities and certain defects during a . The sequential screen combines ultrasound and blood tests to determine the risk of chromosomal abnormalities, including Down's Syndrome (Trisomy 21) and Trisomy 18, as well as open neural tube defects including spina bifida. Ultrasound examination is performed between 11 weeks and 13 weeks gestational age. Blood tests are drawn after the ultrasound and again later in the between 15 and 21 weeks gestational age. Please let your physician know if you are interested in this testing. It will require an appointment with our patient service technician pst. This is not an ultrasound performed by a physician in our office during a routine visit. SIGNS AND SYMPTOMS OF LABOR 1. Contractions every 10 minutes or more often 2. Clear, pink, or brownish fluid (water) leaking from vagina 3. Feeling that baby is pushing down, pressure 4. Low, dull backache 5. Cramps that feel like a period 6. Cramps with or without diarrhea If you notice any of the above symptoms, contact our office at [phone] and ask to speak with a nurse. After hours, you can call doctors registry at [phone] OR call [facility] at [phone] and ask to have the doctor front end loader driver paged. If you consider this an emergency, dial 3--0 or go to your nearest emergency department. NEED HELP? Are you dealing with a violent or abusive relationship? Are you a victim of rape or sexual assult? Call [facility] ([place]) 24 hour Crisis Hotline: 577.740.3475 or 016-249-5162. MANUAL Your Guide to a Healthy manual is now on-line. Visit [email or web address]/HealthyPre gnancyGuide to download your free copy documented in this encounter [facility] 12-27-2021 Miscellaneous Notes Formattin g of this note might be different from the original. KJ - No VB/LOF/ctxs. Reports good FM. A&P: 28wk labs Declines LARC Discussed [facility] peds Tdap today Obesity - check growth US at 32 weeks Reviewed PTL & FM precautions Gabo Montgomery MD documented in this encounter [facility] 12-27-2021 History of Presen t illness Narrative Patient identified by name and date of . Suzie Hollins presents today for a vaccination of Tdap. Patient denies an allergy to latex: yes Patient denies a severe (life-threatening) allergy to a previous dose of Tdap, DTP, DTaP, DT or Td vaccine. Yes Patient denies history of epilepsy or neurological problems: Yes Patient is afebrile and denies being moderately or severely ill: Yes Patient denies history of Guillain-Columbus Syndrome (a severe paralytic illness): Yes Tdap Adacel injection was given without incident. See immunizations for details of immunizations administered today. VIS sheet provided: Yes Provider Gabo Montgomery MD was present in office at time of injection. documented in this encounter [facility] 12-27-2021 Instructions Pati Shields Ma - 12/27/2021 9:17 AM EDT SEQUENTIAL SCREENINGS The [facility] offers sequential screenings for women who are interested in screenings for chromosomal abnormalities and certain defects during a . The sequential screen combines ultrasound and blood tests to determine the risk of chromosomal abnormalities, including Down's Syndrome (Trisomy 21) and Trisomy 18, as well as open neural tube defects including spina bifida. Ultrasound examination is performed between 11 weeks and 13 weeks gestational age. Blood tests are drawn after the ultrasound and again later in the between 15 and 21 weeks gestational age. Please let your physician know if you are interested in this testing. It will require an appointment with our patient service technician pst. This is not an ultrasound performed by a physician in our office during a routine visit. SIGNS AND SYMPTOMS OF LABOR 1. Contractions every 10 minutes or more often 2. Clear, pink, or brownish fluid (water) leaking from vagina 3. Feeling that baby is pushing down, pressure 4. Low, dull backache 5. Cramps that feel like a period 6. Cramps with or without diarrhea If you notice any of the above symptoms, contact our office at [phone] and ask to speak with a nurse. After hours, you can call doctors registry at [phone] OR call [facility] at [phone] and ask to have the doctor front end loader driver paged. If you consider this an emergency, dial 7-2-0 or go to your nearest emergency department. NEED HELP? Are you dealing with a violent or abusive relationship? Are you a victim of rape or sexual assult? Call [facility] ([facility] 24 hour Crisis Hotline: 503.538.3814 or 868-839-7205. MANUAL Your Guide to a Healthy manual is now on-line. Visit [facility].[email or web address]/HealthyPre gnancyGuide to download your free copy documented in this encounter [facility] 11-29-2021 Miscellaneous Notes Suzie Hollins is a 31 year old female who presents at 24w3d Estimated Date of Delivery: 03/18/22 for a routine visit. Increased movement. Denies headache, visual changes, chest pain, shortness of breath, vaginal bleeding, leakage of fluid, or dysuria. Feeling well, no complaints. Size equal to dates. 7 lbs TWG. PTL precautions reviewed. RTC in 2 weeks for KIMBERLY with GCT and CBC. Katelin Cooper APRN.CNM documented in this encounter [facility] 11-29-2021 Instructions Lorena Be MA - 11/29/2021 10:23 AM EDT SEQUENTIAL SCREENINGS The [facility] offers sequential screenings for women who are interested in screenings for chromosomal abnormalities and certain defects during a . The sequential screen combines ultrasound and blood tests to determine the risk of chromosomal abnormalities, including Down's Syndrome (Trisomy 21) and Trisomy 18, as well as open neural tube defects including spina bifida. Ultrasound examination is performed between 11 weeks and 13 weeks gestational age. Blood tests are drawn after the ultrasound and again later in the between 15 and 21 weeks gestational age. Please let your physician know if you are interested in this testing. It will require an appointment with our patient service technician pst. This is not an ultrasound performed by a physician in our office during a routine visit. SIGNS AND SYMPTOMS OF LABOR 1. Contractions every 10 minutes or more often 2. Clear, pink, or brownish fluid (water) leaking from vagina 3. Feeling that baby is pushing down, pressure 4. Low, dull backache 5. Cramps that feel like a period 6. Cramps with or without diarrhea If you notice any of the above symptoms, contact our office at [phone] and ask to speak with a nurse. After hours, you can call doctors registry at [phone] OR call [facility] at [phone] and ask to have the doctor front end loader driver paged. If you consider this an emergency, dial 5 or go to your nearest emergency department. NEED HELP? Are you dealing with a violent or abusive relationship? Are you a victim of rape or sexual assult? Call [facility] ([facility] 24 hour Crisis Hotline: 944.251.6055 or 947-644-5667. MANUAL Your Guide to a Healthy manual is now on-line. Visit [facility].org/HealthyPre gnancyGuide to download your free copy documented in this encounter [facility] documented as of this encounter (statuses as of 05/05/2022) [facility] History of Past illness Narrative* Problem Noted Date Resolved Date Encounter for supervision of normal first in second trimester 11/02/2021 05/03/2022 History of infertility 07/28/2021 3 Overview: 07/28/2021 Patient and her have been trying to conceive for the past 5 years. TKRN History of anxiety 07/28/2021 05/03/2022 Overview: 07/28/2021 Patient states she has a history of anxiety that was never diagnosed. Denies any history of depression. TKRN Family history of cystic fibrosis 07/28/2021 05/03/2022 Overview: 07/28/2021atient's second cousin with cystic fibrosis. Patient states that she has never had any genetic carrier screening testing.TKRN Patient request for diagnostic testing 2 05/03/2022 Overview: 07/28/2021 Patient desires aneuploidy screening. She is given contact information for [facility] to check for insurance coverage regarding materniti 21+ test. TKRN Rib pain 02/17/2009 10/17/2011 Injury, other and unspecified, unspecified site 04/06/2006 10/17/2011 documented as of this encounter (statuses as of 10/23/2022) [facility] History of Past illness Narrative* Problem Noted Date Resolved Date Encounter for supervision of normal first in second trimester 11/02/2021 05/03/2022 History of infertility 07/28/2021 3 Overview: 07/28/2021 Patient and her have been trying to conceive for the past 5 years. TKRN History of anxiety 07/28/2021 05/03/2022 Overview: 07/28/2021 Patient states she has a history of anxiety that was never diagnosed. Denies any history of depression. TKRN Family history of cystic fibrosis 07/28/2021 05/03/2022 Overview: 07/28/2021atient's second cousin with cystic fibrosis. Patient states that she has never had any genetic carrier screening testing.TKRN Patient request for diagnostic testing 05/03/2022 Overview: 07/28/2021 Patient desires aneuploidy screening. She is given contact information for [facility] to check for insurance coverage regarding materniti 21+ test. TKRN Rib pain 02/17/2009 10/17/2011 Injury, other and unspecified, unspecified site 04/06/2006 10/17/2011 documented as of this encounter (statuses as of 10/26/2022) [facility]20[facility] Miscellaneous Notes* Quick Notes - Adrienne Gray MD - 11/02/2021 1:52 PM EDT RR_ No VB/LOF. Some flutters now. US today, it's a boy. Cont. ASA and PNV. F/u in 4 weeks or prn. Adrienne Gray MD [facility] Instructions* Patient Instructions* Flor Oliveros Ma - 11/02/2021 1:01 PM EDT SEQUENTIAL SCREENINGS The [facility] offers sequential screenings for women who are interested in screenings for chromosomal abnormalities and certain defects during a . The sequential screen combinesultrasound and blood tests to determine the risk of chromosomal abnormalities, including Down's Syndrome (Trisomy 21) and Trisomy 18, as well as open neural tube defects including spina bifida. Ultrasound examination is performed between 11 weeks and 13 weeks gestational age. Blood tests are drawn after the ultrasound and again later in the between 15 and 21 weeks gestational age. Please let your physician know if you are interested in this testing. It will require an appointment withour patient service technician pst. This is not an ultrasound performed by a physician in our office during a routine visit. SIGNS AND SYMPTOMS OF LABOR 1. Contractions every 10 minutes or more often 2. Clear, pink, or brownish fluid (water) leaking from vagina 3. Feeling that baby is pushing down, pressure 4. Low, dull backache 5. Cramps that feel like a period 6. Cramps with or without diarrhea If you notice any of the above symptoms, contact our office at [phone] and ask to speak with anurse. After hours, you can call doctors registry at [phone] OR call [facility] at [phone] ask to have the doctor front end loader driver paged. If you consider this an emergency, dial 9-1-1 or go to your nearest emergency department. NEED HELP? Are you dealing with a violent or abusive relationship? Are you a victim of rape or sexual assult? Call [facility] ([place]) 24 hour Crisis Hotline: 708.543.9218 or 297-586-3788. MANUAL Your Guide to a Healthy manual is now on-line. Visit [email or web address] to download your free copy documented in this encounter[facility] Miscellaneous Notes* Quick Notes - Farida Huang MD - 10/04/2021 10:35 AM EDT DM- Pt doing well today. Denies Vaginal Bleeding, Leaking fluid, or cramping. Denies N/V. Second trimester screen today. Anatomy us ordered. Continue ASA. RTO 4 wks. Farida Simental MD documented in this encounterSelect Medical [facility]06-07-2022 Instructions* Patient Instructions* Padmini Yost Ma - 10/04/2021 10:20 AM EDT SEQUENTIAL SCREENINGS The [facility] offers sequential screenings for women who are interested in screenings for chromosomal abnormalities and certain defects during a . The sequential screen combinesultrasound and blood tests to determine the risk of chromosomal abnormalities, including Down's Syndrome (Trisomy 21) and Trisomy 18, as well as open neural tube defects including spina bifida. Ultrasound examination is performed between 11 weeks and 13 weeks gestational age. Blood tests are drawn after the ultrasound and again later in the between 15 and 21 weeks gestational age. Please let your physician know if you are interested in this testing. It will require an appointment withour patient service technician pst. This is not an ultrasound performed by a physician in our office during a routine visit. SIGNS AND SYMPTOMS OF LABOR 1. Contractions every 10 minutes or more often 2. Clear, pink, or brownish fluid (water) leaking from vagina 3. Feeling that baby is pushing down, pressure 4. Low, dull backache 5. Cramps that feel like a period 6. Cramps with or without diarrhea If you notice any of the above symptoms, contact our office at [phone] and ask to speak with anurse. After hours, you can call doctors registry at [phone] OR call [facility] at [phone] ask to have the doctor front end loader driver paged. If you consider this an emergency, dial 9-1-4 or go to your nearest emergency department. NEED HELP? Are you dealing with a violent or abusive relationship? Are you a victim of rape or sexual assult? Call [facility] ([facility] 24 hour Crisis Hotline: 192.319.3930 or 350-891-2334. MANUAL Your Guide to a Healthy manual is now on-line. Visit [email or web address] to download your free copy documented in this encounterSelect Medical [facility] [place]-13-2022 Miscellaneous Notes* Telephone Encounter - Serena Hanson LPN - 09/09/2021 2:36 PM EDT FMLA paperwork faxed to employer, scanned into EMR and filed in CORRECTIONAL CLASSIFICATION COUNSELOR suite. Serena Hanson LPN * Telephone Encounter - Serena Hanson LPN - 09/09/2021 8:20 AM EDT FMLA paperwork placed on providers desk for signature. Serena Hanson LPN documented in this encounterSelect Medical [facility]05-12-2022 Instructions* Patient Instructions* Mimi Camacho RN - 09/08/2021 8:26 AM EDT SEQUENTIAL TESTING PROCESS Sequential Screen First Trimester Today you are currently: 12w5d weeks 09/08/2021: Ultrasound and blood test. Sequential Screen Second Trimester (16-17 Weeks Gestation) When you are called with your results, the nurse will give the optimal draw dates for the Sequential screen second trimester. Blood testing can be done at any [facility] lab. Please report to the any stock associate office restaurant front manager for the Sequential Part 2 requisition and order before reporting to the lab. Your weight will need to be documented for testing. Please note: -No appointment is need for your second blood draw. -Office hours are 8 am to 4:30 pm. -Please have testing done prior to 12 noon on Sunday's -Once the sequential testing is started, in the first trimester the only follow- up will be for the sequential screen second trimester. Please don't have a Quad screen ordered by another provider. If you or your Provider have any questions please call your maternal medicine office, for east side please call [phone] or for the West side call [phone] and ask for the the nurse. Thank you. documented in this encounterSelect Medical [facility]05-12-2022 Miscellaneous Notes* Telephone Encounter - Mimi Camacho RN - 09/08/2021 8:24 AM EDT Patient here for First Trimester Screening. See ultrasound report for details. Options for genetic screening and diagnosis discussed with the patient. Patient opts for first trimester screening and the sequential screening protocol. Limitations of screening tests discussed withthe patient. Elvia Crum APRN.DISTRICT DIRECTOR documented in this encounterSelect Medical Specialty [facility]04-12-2022 History of Present illness Narrative* Adrienne Gray MD - 08/09/2021 10:27 AM EDT INITIAL OB ASSESSMENT OB Provider: Flor Oliveros Ma HPI: Suzie Hollins is a 31 year old female here to establish Obstetrical Care. Patient's last menstrual period was 06/11/2021 (exact date). from OB Dating Form. Cycle length: 28-30 days Complaints: nausea w/ am emesis starting this week, able to eat and drink well later in the day was planned. OB History T0 L0 SAB0 IAB0 Ectopic0 Multiple0 Live Births0 Prior : never History of 4th degree laceration: No Patient's Risk Screening for delivery: History of abnormal pap: No Prior treatment for cervical dysplasia: none. 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 yes Marital Status: Partner: Name: Bj Hollins Age: 29 Occupation: Work at [employer] Gender: male History of STDs: None PAST MEDICAL HISTORY Diagnosis Date #[id number] Anemia history infertility Varicella without mention of complication 05/26/1994 PAST SURGICAL HISTORY Procedure Laterality Date ARTHROSCOPY KNEE DIAGNOSTIC W/WO SYNOVIAL BX SPX 07/10/2008 Arthroscopy, knee KNEE SURGERY HX Right 04/14/2016 miniscus repair PAST SURGICAL HISTORY OF Right 2004 ACL PAST SURGICAL HISTORY OF Left Meniscus repair TONSILLECTOMY & ADENOIDECTOMY <AGE 14 TYMPANOSTOMY LOCAL/TOPICAL ANESTHESIA Current Outpatient Medications on File Prior to Visit Medication Sig multivitamin (CLASSIC ) 28 mg iron- 800 mcg tab(s) Take 1 tablet by mouth once daily. letrozole (FEMARA) 2.5 mg tablet Take 2 tablets by mouth once daily. cycle day 3-7 medroxyPROGESTERone (PROVERA, CYCRIN) 10 mg tablet Take 1 tablet by mouth once daily. every month to induce a menses No current facility-administered medications on file prior to visit. Review of Systems: GENERAL: Negative for: Fever or Chills HEENT: Negative for: Headache, Impaired Vision, Ringing in Ears, Nosebleeds NECK: Negative for: Swelling, Pain, Stiffness RESPIRATORY: Negative for: Cough, Shortness of breath, Wheezing GASTROINTESTINAL: Negative for: Heartburn, Constipation, Diarrhea, Blood in stool, MUSCULOSKELETAL: Negative for: Muscle or joint pain, stiffness, Joint swelling NEUROLOGIC/PSYCHIATRIC: Negative for: Weakness, Paralysis, Numbness, Tingling, Tremor, Anxiety, Depression, Memory loss SKIN: Negative for: Rash, Itching GENITOURINARY: Negative for: vaginal itching, vaginal discharge, hematuria or dysuria PHYSICAL EXAM: BP 108/72 Ht 5' 2.205 (1.58m) Wt 178 lb (80.7kg) LMP 06/11/2021 BMI 32.34 kg/(m^2). GENERAL: pleasant female in no apparent distress DERMATOLOGY: Normal, without lesions, non-icteric and non-hirsute NECK: Supple, full range of motion, no adenopathy and thyroid normal CHEST: Normal inspiratory effort BREAST: soft, non-tender, symmetric, no dominant mass, normal nipple-areolar complex, no lymphadenopathy and no nipple discharge ABDOMEN: soft, non-tender and no masses NEURO: alert and oriented x3,exam grossly non-focal PELVIS: External genitalia normal without lesions. Perineal body intact. No vaginal or cervical lesions. Cervix closed. Uterus 8 week size. No adnexal masses or tenderness. Clinical Pelvimetry: Pelvimetry clinically assessed as adequate Limited OB ultrasound exam: single intrauterine , positive cardiac activity and crown-rump length cw 8w 1 d which is c/w LMP OB Risk Screening: Completed, no positive findings documented. ASSESSMENT: 31 year old at 8w3d wks gestational age PLAN: 1) Patient oriented to practice. Discussed nutrition, folic acid supplementation, dietary guidelines, exercise, smoking, alcohol, caffeine, and drug use. Discussed routine OB labs including STD/HIV. Discussed aneuploidy screening options including serum screening and nuchal translucency. considering carrier and aneuploidy screening 2) ASA candidate 3) f/u in 4 week or prn Follow up in 4 weeks or sooner prn. Adrienne Gray MD documented in this encounterSelect Medical Specialty [facility]04-12-2022 Instructions* Patient Instructions* Flor Arlin Dee - 08/09/2021 10:27 AM EDT Please select the following link to access the [facility] Your Guide to a Healthy . [email or web address] Unisom 1/2 tablet every 8 hours as needed for nausea, 1/2 to one tablet at bedtime as needed. Vitamin b 6 10-25 mg tablets one every 6 hours as needed for nausea. documented in this encounterSelect Medical Specialty [facility]03-31-2022 History of Present illness Narrative* Lucina Nolan RN - 07/28/2021 4:38 PM EDT documented in this encounterSelect Medical Specialty [facility] [place]03-31-2022 Miscellaneous Notes* Quick Notes - Lucina Nolan RN - 07/28/2021 4:38 PM EDT DISTANCE HEALTH VISIT This Team Access Model visit is a phone encounter. It required patient-provider interaction for themedical decision making as documented below. Patient and her have been trying to conceive for the past 5 years. Patient states she has a history of anxiety that was never diagnosed. Denies any history of depression. Patient second cousin with cystic fibrosis. Patient states that she has never had any genetic carrier screening testing. Patient desires aneuploidy screening. She is given contact information for [employer] to check for insurance coverage regarding materniti 21+ test. Patient considering genetic carrier screening testing. Contact information for [employer] rep given to patient to call for insurance coverage for Horizon testing.Lucina Nolan RN documented in this encounterSelect Medical Specialty [facility]10-21-2009 History of Past illness Narrative* Problem Noted Date Resolved Date Rib pain 02/17/2009 10/17/2011 Injury, other and unspecified, unspecified site 04/06/2006 10/17/2011 documented as of this encounter (statuses as of 07/28/2021) [facility] History of Past illness Narrative* Problem Noted Date Resolved Date Rib pain 02/17/2009 10/17/2011 Injury, other and unspecified, unspecified site 04/06/2006 10/17/2011 documented as of this encounter (statuses as of 08/09/2021) [facility] History of Past illness Narrative* Problem Noted Date Resolved Date Rib pain 02/17/2009 10/17/2011 Injury, other and unspecified, unspecified site 04/06/2006 10/17/2011 documented as of this encounter (statuses as of 09/08/2021) [facility] History of Past illness Narrative* Problem Noted Date Resolved Date Rib pain 02/17/2009 10/17/2011 Injury, other and unspecified, unspecified site 04/06/2006 10/17/2011 documented as of this encounter (statuses as of 09/08/2021) [facility] History of Past illness Narrative* Problem Noted Date Resolved Date Rib pain 02/17/2009 10/17/2011 Injury, other and unspecified, unspecified site 04/06/2006 10/17/2011 documented as of this encounter (statuses as of 09/09/2021) [facility] History of Past illness Narrative* Problem Noted Date Resolved Date Rib pain 02/17/2009 10/17/2011 Injury, other and unspecified, unspecified site 04/06/2006 10/17/2011 documented as of this encounter (statuses as of 10/04/2021) [facility] History of Past illness Narrative* Problem Noted Date Resolved Date Rib pain 02/17/2009 10/17/2011 Injury, other and unspecified, unspecified site 04/06/2006 10/17/2011 documented as of this encounter (statuses as of 11/02/2021) [place] [address]-21-2009 History of Past illness Narrative* Problem Noted Date Resolved Date Rib pain 02/17/2009 10/17/2011 Injury, other and unspecified, unspecified site 04/06/2006 10/17/2011 documented as of this encounter (statuses as of 11/29/2021) [facility] History of Past illness Narrative* Problem Noted Date Resolved Date Rib pain 02/17/2009 10/17/2011 Injury, other and unspecified, unspecified site 04/06/2006 10/17/2011 documented as of this encounter (statuses as of 12/27/2021) [facility] History of Past illness Narrative* Problem Noted Date Resolved Date Rib pain 02/17/2009 10/17/2011 Injury, other and unspecified, unspecified site 04/06/2006 10/17/2011 documented as of this encounter (statuses as of 01/10/2022) [facility] History of Past illness Narrative* Problem Noted Date Resolved Date Rib pain 02/17/2009 10/17/2011 Injury, other and unspecified, unspecified site 04/06/2006 10/17/2011 documented as of this encounter (statuses as of 01/16/2022) [facility] History of Past illness Narrative* Problem Noted Date Resolved Date Rib pain 02/17/2009 10/17/2011 Injury, other and unspecified, unspecified site 04/06/2006 10/17/2011 documented as of this encounter (statuses as of 01/23/2022) [facility] History of Past illness Narrative* Problem Noted Date Resolved Date Rib pain 02/17/2009 10/17/2011 Injury, other and unspecified, unspecified site 04/06/2006 10/17/2011 documented as of this encounter (statuses as of 01/24/2022) [facility] History of Past illness Narrative* Problem Noted Date Resolved Date Rib pain 02/17/2009 10/17/2011 Injury, other and unspecified, unspecified site 04/06/2006 10/17/2011 documented as of this encounter (statuses as of 02/07/2022) [facility] History of Past illness Narrative* Problem Noted Date Resolved Date Rib pain 02/17/2009 10/17/2011 Injury, other and unspecified, unspecified site 04/06/2006 10/17/2011 documented as of this encounter (statuses as of 02/21/2022) [facility] History of Past illness Narrative* Problem Noted Date Resolved Date Rib pain 02/17/2009 10/17/2011 Injury, other and unspecified, unspecified site 04/06/2006 10/17/2011 documented as of this encounter (statuses as of 02/28/2022) [facility] History of Past illness Narrative* Problem Noted Date Resolved Date Rib pain 02/17/2009 10/17/2011 Injury, other and unspecified, unspecified site 04/06/2006 10/17/2011 documented as of this encounter (statuses as of 03/13/2022) [facility] History of Past illness Narrative* Problem Noted Date Resolved Date Rib pain 02/17/2009 10/17/2011 Injury, other and unspecified, unspecified site 04/06/2006 10/17/2011 documented as of this encounter (statuses as of 04/17/2022) [facility]* Diagnosis Supervision of with history of infertility, first trimester- Primary History of infertility Personal history of other genital system and obstetric disorders History of anxiety Personal history of other mental disorder Family history of cystic fibrosis Family history of other endocrine and metabolic diseases Patient request for diagnostic testing Other specified examination documented in this encounter [facility]* Diagnosis Encounter for care in first trimester of first - Primary 8 weeks gestation of state, incidental documented in this encounter [facility]* Diagnosis Encounter for screening for nuchal translucency- Primary [facility] Diagnosis Encounter for (NT) nuchal translucency scan- Primary Other specified screening 12 weeks gestation of state, incidental documented in this encounter [facility]* Diagnosis Encounter for supervision of normal first in second trimester- Primary Supervision of normal first 16 weeks gestation of state, incidental documented in this encounter [facility]* Diagnosis 20 weeks gestation of - Primary state, incidental Encounter for supervision of normal first in second trimester Supervision of normal first [facility] Diagnosis 24 weeks gestation of - Primary state, incidental Encounter for supervision of normal first in second trimester Supervision of normal first documented in this encounter [facility]* Diagnosis Encounter for supervision of normal first in third trimester- Primary Supervision of normal first 28 weeks gestation of state, incidental Need for vaccination Need for prophylactic vaccination and inoculation against unspecified single disease Obesity complicating , third trimester documented in this encounter [facility]* Diagnosis 30 weeks gestation of - Primary state, incidental Encounter for supervision of normal first in third trimester Supervision of normal first documented in this encounter [facility]* Diagnosis Suspected problem with growth not found- Primary 32 weeks gestation of state, incidental documented in this encounter [facility]* Diagnosis 32 weeks gestation of - Primary state, incidental documented in this encounter [facility]* Diagnosis 34 weeks gestation of - Primary state, incidental Encounter for supervision of normal first in third trimester Supervision of normal first Need for influenza vaccination Need for prophylactic vaccination and inoculation against influenza documented in this encounter [facility]* Diagnosis Encounter for supervision of normal first in third trimester- Primary Supervision of normal first 36 weeks gestation of state, incidental documented in this encounter [facility]* Diagnosis 37 weeks gestation of - Primary state, incidental documented in this encounter [facility]* Diagnosis care and examination- Primary Routine follow-up Insertion of Nexplanon Insertion of implantable subdermal contraceptive documented in this encounter [facility] [place]* Diagnosis Insertion of Nexplanon- Primary Insertion of implantable subdermal contraceptive Insertion of implantable subdermal contraceptive documented in this encounter [facility]* Diagnosis Nexplanon removal- Primary Surveillance of previously prescribed implantable subdermal contraceptive documented in this encounter [facility]* Diagnosis Nexplanon removal- Primary Surveillance of previously prescribed implantable subdermal contraceptive Encounter for repeat prescription of oral contraceptives General counseling for prescription of oral contraceptives documented in this encounter [facility] for referral (narrative)* Diagnostic Procedure Only (Routine) - Authorized Specialty Diagnoses / Procedures Referred By Ezekiel read Referred To Contact [facility] Diagnoses Encounter for supervision of normal first in second trimester Procedures OBSTETRIC ULTRASOUND WHI US PREG UTERUS AFTER 1ST TRIMEST GESTATION Farida Mistry MD [address] [place] [address] [address] Referral ID Status Reason Start Date Expiration Date Visits Requested Visits Authorized [id number] Authorized Auto-Generat ed Referral 10/04/2021 10/04/2022 1 1 [facility] for referral (narrative)* Diagnostic Procedure Only (Routine) - Authorized Specialty Diagnoses / Procedures Referred By Contac t Referred To Contact [facility] Diagnoses 28 weeks gestation of Obesity complicating , third trimester Procedures OBSTETRIC ULTRASOUND WHI US PREG UTERUS AFTER 1ST TRIMEST GESTATION Gabo Montgomery MD [address] [place] [address] [facility] [address] [place] [address] Referral ID Status Reason Start Date Expiration Date Visits Requested Visits Authorized [id number] Authorized Auto-Generat ed Referral 12/27/2021 12/27/2022 1 1 [facility] for referral (narrative)* Outpatient Procedure (Routine) - Pending Review Specialty Diagnoses / Procedures Referred By Contac t Referred To Contact [facility] Diagnoses Insertion of Nexplanon Procedures NEXPLANON INSERTION ETONOGESTREL IMPLANT SYSTEM INSERT DRUG IMPLANT DEVICE Adrienne Gray MD [address] [place] [address] [address] Referral ID Status Reason Start Date Expiration Date Visits Requested Visits Authorized [id number] Pending Review Auto-Generat ed Referral 04/17/2023 1 1 [facility] for referral (narrative)* Outpatient Procedure (Routine) - Authorized Specialty Diagnoses / Procedures Referred By Ezekiel read Referred To Contact [facility] Diagnoses Nexplanon removal Encounter for initial prescription of implantable subdermal contraceptive Procedures NEXPLANON REMOVAL REMOVAL NON-BIODEGRADABLE DRUG DELIVERY IMPLANT INSERT DRUG IMPLANT DEVICE ETONOGESTREL IMPLANT SYSTEM Adrienne Gray MD [address] [place] [address] [facility] [address] [place] [address] Referral ID Status Reason Start Date Expiration Date Visits Requested Visits Authorized [id number] Authorized Auto-Generat ed Referral 10/23/2022 04/29/2023 2 2 [facility] for visit Narrative* Outpatient Procedure (Routine) - Closed Specialty Diagnoses / Procedures Referred By Ezekiel read Referred To Contact [facility] Diagnoses Insertion of Nexplanon Encounter for surveillance of implantable subdermal contraceptive Procedures NEXPLANON INSERTION ETONOGESTREL IMPLANT SYSTEM INSERT DRUG IMPLANT DEVICE REMOVAL NON-BIODEGRADABLE DRUG DELIVERY IMPLANT Adrienne Gray MD [address] [place] [address] [facility] [address] [place] [address] Referral ID Status Reason Start Date Expiration Date V isits Requested Visits Authorized [id number] Closed Auto-Generate d Referral 04/30/2022 04/29/2023 1 1 [facility] Health Concerns Problem Noted Date OB Reminders 08/09/2021 Problem Noted Date OB Reminders 08/09/2021 Problem Noted Date OB Reminders 08/09/2021 Problem Noted Date OB Reminders 08/09/2021 Problem Noted Date OB Reminders 08/09/2021 Problem Noted Date OB Reminders 08/09/2021 Problem Noted Date OB Reminders 08/09/2021 Problem Noted Date OB Reminders 08/09/2021 Problem Noted Date OB Reminders 08/09/2021 Problem Noted Date OB Reminders 08/09/2021 Problem Noted Date OB Reminders 08/09/2021 Problem Noted Date OB Reminders 08/09/2021 Problem Noted Date OB Reminders 08/09/2021 Problem Noted Date OB Reminders 08/09/2021 Problem Noted Date OB Reminders 08/09/2021 Medications Administered Section Inactive Administered Medications - up to 3 most recent administrations Medication Order MAR Action Action Date Dose Rate Site etonogestrel subdermal implant 68 mg (NEXPLANON) 68 mg, SUBDERMAL, ONCE (UP TO 30 DAYS AMB), 1 dose, On Sun05/03/22 at 1430, Hazardous Potential Reproductive Risk Drug: Use appropriate PPE. Must be inserted subdermally in the upper arm by a trained healthcare provider. Given 05/03/2022 2:16 PM EST 68 mg Arm, Left Summary Purpose Family History No Family History Records FoundNo Family History Records Found Advance Directives No Advanced Directives Records FoundNo Advanced Directives Records Found Additional Source Comments Source Comments (unrecognize d section and content) In the event this informatio n is protected by the Federal Confidentiality of Alcohol and Drug Abuse Patient Records regulations: The Federal rules restrict any use of the information to criminally investigate or prosecute any alcohol or drug abuse patient.[facility] the event this information is protected by the Federal Confidentiality of Alcohol and Drug Abuse Patient Records regulations: The Federal rules restrict any use of the information to criminally investigate or prosecute any alcohol or drug abuse patient.[facility] the event this information is protected by the Federal Confidentiality of Alcohol and Drug Abuse Patient Records regulations: The Federal rules restrict any use of the information to criminally investigate or prosecute any alcohol or drug abuse patient.[facility] the event this information is protected by the Federal Confidentiality of Alcohol and Drug Abuse Patient Records regulations: The Federal rules restrict any use of the information to criminally investigate or prosecute any alcohol or drug abuse patient.[facility] the event this information is protected by the Federal Confidentiality of Alcohol and Drug Abuse Patient Records regulations: The Federal rules restrict any use of the information to criminally investigate or prosecute any alcohol or drug abuse patient.[facility] the event this information is protected by the Federal Confidentiality of Alcohol and Drug Abuse Patient Records regulations: The Federal rules restrict any use of the information to criminally investigate or prosecute any alcohol or drug abuse patient.[facility] the event this information is protected by the Federal Confidentiality of Alcohol and Drug Abuse Patient Records regulations: The Federal rules restrict any use of the information to criminally investigate or prosecute any alcohol or drug abuse patient.[facility] the event this information is protected by the Federal Confidentiality of Alcohol and Drug Abuse Patient Records regulations: The Federal rules restrict any use of the information to criminally investigate or prosecute any alcohol or drug abuse patient.[facility] the event this information is protected by the Federal Confidentiality of Alcohol and Drug Abuse Patient Records regulations: The Federal rules restrict any use of the information to criminally investigate or prosecute any alcohol or drug abuse patient.[facility] the event this information is protected by the Federal Confidentiality of Alcohol and Drug Abuse Patient Records regulations: The Federal rules restrict any use of the information to criminally investigate or prosecute any alcohol or drug abuse patient.[facility] the event this information is protected by the Federal Confidentiality of Alcohol and Drug Abuse Patient Records regulations: The Federal rules restrict any use of the information to criminally investigate or prosecute any alcohol or drug abuse patient.[facility] the event this information is protected by the Federal Confidentiality of Alcohol and Drug Abuse Patient Records regulations: The Federal rules restrict any use of the information to criminally investigate or prosecute any alcohol or drug abuse patient.[facility] the event this information is protected by the Federal Confidentiality of Alcohol and Drug Abuse Patient Records regulations: The Federal rules restrict any use of the information to criminally investigate or prosecute any alcohol or drug abuse patient.[facility] the event this information is protected by the Federal Confidentiality of Alcohol and Drug Abuse Patient Records regulations: The Federal rules restrict any use of the information to criminally investigate or prosecute any alcohol or drug abuse patient.[facility] the event this information is protected by the Federal Confidentiality of Alcohol and Drug Abuse Patient Records regulations: The Federal rules restrict any use of the information to criminally investigate or prosecute any alcohol or drug abuse patient.[facility] the event this information is protected by the Federal Confidentiality of Alcohol and Drug Abuse Patient Records regulations: The Federal rules restrict any use of the information to criminally investigate or prosecute any alcohol or drug abuse patient.[facility] the event this information is protected by the Federal Confidentiality of Alcohol and Drug Abuse Patient Records regulations: The Federal rules restrict any use of the information to criminally investigate or prosecute any alcohol or drug abuse patient.[facility] the event this information is protected by the Federal Confidentiality of Alcohol and Drug Abuse Patient Records regulations: The Federal rules restrict any use of the information to criminally investigate or prosecute any alcohol or drug abuse patient.[facility] the event this information is protected by the Federal Confidentiality of Alcohol and Drug Abuse Patient Records regulations: The Federal rules restrict any use of the information to criminally investigate or prosecute any alcohol or drug abuse patient.[facility] the event this information is protected by the Federal Confidentiality of Alcohol and Drug Abuse Patient Records regulations: The Federal rules restrict any use of the information to criminally investigate or prosecute any alcohol or drug abuse patient.[facility] the event this information is protected by the Federal Confidentiality of Alcohol and Drug Abuse Patient Records regulations: The Federal rules restrict any use of the information to criminally investigate or prosecute any alcohol or drug abuse patient.[facility] Reason for Visit (unrecogniz ed section and content) Reason Comments Initial OB Visit Reason Comments Orders Reason Comments US Specialty Diagnoses / Procedures Referred By Ezekiel t Referred To Contact [facility] Diagnoses 12 weeks gestation of Procedures NUCHAL TRANSLUCENCY WHI US NUCHAL TRANSLUCENCY 1ST GESTATION Katelin Cooper APRN.CN [address] [place] [address] [address] Referral ID Status Reason Start Date Expiration Date V isits Requested Visits Authorized [id number] Closed Auto-Generate d Referral 09/06/2021 09/06/2022 1 1 Reason Comments FMLA Paperwork Reason Onset Date Comments Care 10/04/2021 Reason Onset Date Comments Care 11/02/2021 Reason Onset Date Comments Care 11/29/2021 Reason Onset Date Comments Care 12/27/2021 Reason Onset Date Comments Care 01/10/2022 Reason Comments breast pump Specialty Diagnoses / Procedures Referred By Contac t Referred To Contact [facility] Diagnoses 28 weeks gestation of Obesity complicating , third trimester Procedures OBSTETRIC ULTRASOUND WHI US PREG UTERUS AFTER 1ST TRIMEST GESTATION Gabo Montgomery MD [address] [place] [address] [address] Referral ID Status Reason Start Date Expiration Date V isits Requested Visits Authorized [id number] Closed Auto-Generate d Referral 12/27/2021 12/27/2022 1 1 Reason Onset Date Comments Care 01/23/2022 Reason Onset Date Comments Care 02/07/2022 Immunizations 02/07/2022 Flu vaccination Reason Onset Date Comments Care 02/21/2022 Reason Onset Date Comments Care 02/28/2022 Reason Comments Ob Delivery Note Reason Comments Routine Reason Comments Orders Reason Comments nexplanon removal Specialty Diagnoses / Procedures Referred By Contac t Referred To Contact [facility] Diagnoses Nexplanon removal Encounter for initial prescription of implantable subdermal contraceptive Procedures NEXPLANON REMOVAL REMOVAL NON-BIODEGRADABLE DRUG DELIVERY IMPLANT INSERT DRUG IMPLANT DEVICE ETONOGESTREL IMPLANT SYSTEM Adrienne Gray MD [address] [place] [address] [address] Referral ID Status Reason Start Date Expiration Date Visits Requested Visits Authorized [id number] Authorized Auto-Generat ed Referral 10/23/2022 04/29/2023 2 2 Care Teams (unrecognized sec tion and content) Care Center Manager Relationship Specialty Start Date End Date Gerardo Ty MD [address] [address] PCP - General Internal Medicine 10/19/20 Care Center Manager Relationship Specialty Start Date End Date Gerardo Ty MD [address] [address] PCP - General Internal Medicine 10/19/20 Care Center Manager Relationship Specialty Start Date End Date Gerardo Ty MD [address] [place] [address] PCP - General Internal Medicine 10/19/20 Care Center Manager Relationship Specialty Start Date End Date Gerardo Ty MD [address] [address] PCP - General Internal Medicine 10/19/20 Care Center Manager Relationship Specialty Start Date End Date Gerardo Ty MD [address] [place] [address] PCP - General Internal Medicine 10/19/20 Care Center Manager Relationship Specialty Start Date End Date Gerardo Ty MD [address] [address] PCP - General Internal Medicine 10/19/20 Care Center Manager Relationship Specialty Start Date End Date Gerardo Ty MD [address] [address] PCP - General Internal Medicine 10/19/20 Care Center Manager Relationship Specialty Start Date End Date Gerardo Ty MD [address] [place] [address] PCP - General Internal Medicine 10/19/20 Care Center Manager Relationship Specialty Start Date End Date Gerardo Ty MD [address] [place] [address] PCP - General Internal Medicine 10/19/20 Care Center Manager Relationship Specialty Start Date End Date Gerardo Ty MD [address] [address] PCP - General Internal Medicine 10/19/20 Care Center Manager Relationship Specialty Start Date End Date Gerardo Ty MD [address] [place] [address] PCP - General Internal Medicine 10/19/20 Care Center Manager Relationship Specialty Start Date End Date Gerardo Ty MD [address] [place] [address] PCP - General Internal Medicine 10/19/20 Care Center Manager Relationship Specialty Start Date End Date Gerardo Ty MD [address] [place] [address] PCP - General Internal Medicine 10/19/20 INFORMATION SOURCE (unrecogn ized section and content) DATE CREATED AUTHOR AUTHOR'S HÉCTOR ATJACOB 05/22/2023 [facility] FOR RECORDS PERTAINING TO PATIENTS WHO ARE OR HAVE BEEN ENROLLED IN A CHEMICAL DEPENDENCY/SUBSTANCEABUSE PROGRAM, SOME INFORMATION MAY BE OMITTED. This clinical summary was aggregated from multiple sources. Caution should be exercised in using it in the provision of clinical care. This summary normalizes information from multiple sources, and as a consequence, information in this document may materially change the coding, format and clinical context of patient data. In addition, data may be omitted in some cases. CLINICAL DECISIONS SHOULD BE BASED ON THE PRIMARY CLINICAL RECORDS. [facility]. provides no warranty or guarantee of the accuracy or completeness of information in this document.
== END 2023-06-19 16:27 | disposition home or self-care (01) ==
PROVIDERS: Emergency Provider Emergency Medicine; PCP Internal Medicine; Visit Provider Emergency Medicine
DX: A08.4 Viral intestinal infection, unspecified (principal); E86.0 Dehydration
CPT/HCPCS: 74177; 80053; 83690; 84703; 85025; 99283; Q9967

== ENCOUNTER 2024-07-28 23:50 | Inpatient (IN) | payer OTHER, SELFPAY ==
[2024-07-28 23:21] VITALS: BP 120/70; PULSE 91; RESP 16; TEMP 36.8; O2SAT 93
[2024-07-28 23:26] VITALS: BMI 37.7
[2024-07-29] VITALS (62 sets, daily range): BP systolic 76–140; BP diastolic 42–80; PULSE 67–116; RESP 16; TEMP 36.1–37.1; O2SAT 91–100
[2024-07-29 00:01] LABS: ROM Internal Control Test YES-OK TO RESULT pt. (Internal QC); ROM Patient Test POSITIVE (Negative); Record Kit Lot#, ROM+ K3294
[2024-07-29 00:17] LABS: Absolute Lymphocyte Count 2.28 X10^3/uL (0.83-4.51); Absolute Neutrophil Count 9.5 X10^3/uL (2.0-7.7); Basophil# 0.07 X10^3/uL; Basophil% 0.5 % (0-1); Eosinophil# 0.13 X10^3/uL; Hematocrit 38.3 % (37-47); Lymphocyte # 2.28 X10^3/ul (0.83-4.51); Lymphocyte % 16.9 % (19-41); Mean Corp Hgb Conc 33.9 g/dL (32-36); Mean Corpuscular Hgb 27.5 pg (27.0-32.0); Mean Corpuscular Volume 81.1 fL (81-99); Mean Platelet Vol. 11.7 fl (6.2-12.0); Monocyte# 1.26 X10^3/uL; Monocyte% 9.3 % (0-10); NRBC Flagged by Analyzer 0 % (0-5); Neutrophil # 9.53 X10^3/uL (2.7-7.7); Neutrophil % 70.5 % (47-70); Platelet Count 141 K/mm3 (150-450); RBC Distribution Width CV 14.2 % (11.6-14.6); RBC Distribution Width SD 41.2 fl (35.1-43.9); Red Blood Count 4.72 M/mm3 (4.2-5.4); White Blood Count 13.5 K/mm3 (4.4-11.0)
[2024-07-29 00:52] LABS: Syphilis Antibodies Nonreactive (Nonreactive)
[2024-07-29] MEDS: Oxytocin 15 Units/NS 250ml 15 UNITS/250 ML IV.SOLN 2 UNITS IV (02:35)
[2024-07-29] MEDS: Lactated Ringers 1,000 ML 50 ML IV (02:40)
[2024-07-29] MEDS: Lactated Ringers 1,000 ML 999 ML IV ×2 (04:40)
[2024-07-29 05:33] LABS: Bedside Glucose 103 mg/dL (74-106)
[2024-07-29] MEDS: fentaNYL-bupivacaine (epidural) 100 ML BAG EPIDURAL ×2 (05:52→09:59)
[2024-07-29] MEDS: LACTATED RINGERS 500 ML 999 ML IV (06:01)
[2024-07-29] MEDS: ePHEDrine Sulfate 50 MG/ML Ampul 10 MG IV (06:18)
[2024-07-29 07:01] LABS: Bedside Glucose 87 mg/dL (74-106)
--- NOTE | 2024-07-29 08:33 | HP.PCM.OB_ITS ---
HPI - General General Date of Admission: 07/28/24 Date of Service: 07/29/24 Chief Complaint: SROM HPI Narrative JAYNA COLES, is a 34 F who presents 2 para one 34-year-old 2 para 1 who presented with spontaneous rupture of membranes on 07/28/2024. She had premature rupture of membranes. She was not an active labor. She was started on Pitocin. Her was complicated to date by maternal obesity with a BMI of 37, gestational diabetes class A1. Patient reports blood sugars have been well-controlled. Her group B strep screen was negative. Maternal Data Information Final LIZBETH: 08/10/24 Gestational age: 38 2/7 [facility] Medical History (Updated 07/29/24 @ 08:[address] Amy Mejia MD) PROM (premature rupture of membranes) Gestational diabetes Nausea vomiting and diarrhea Abdominal pain Back pain Knee pain Frequent headaches Migraines Scoliosis Seasonal allergies Arthritis Home Medications ?Medication ?Instructions ?Recorded ?Last Taken ?Type llpcxped-[id number] 1 mg 1 tab PO DAILY supple ment 03/09/22 07/28/24 22:00 History tablet aspirin 81 mg capsule 81 mg PO DAILY 05/2407/28/24 20:00 History Allergy/AdvReac Type Severity Reaction Status Date / Time Sulfa (Sulfonamide Allergy Intermediate Rash Verified 07/28/24 23:25 Antibiotics) Family History Grandfather Myocardial infarction, Onset Age: 51 Grandmother Myocardial infarction, Onset Age: 61 Sister Asthma Mother Diabetes Hypertension Arthritis Uncle Myocardial infarction 2 uncles Surgical History History of placement of ear tubes History of tonsillectomy and adenoidectomy meniscus repair S/P ACL repair Social History Smoking Status: Never smoker alcohol intake: current alcohol intake frequency: holidays/special occasions only Alcohol type: wine substance use type: does not use what type of physical activity do you participate in: running and weight training frequency: 3-4 times per week History Elective abortions Hx Para 1 Spontaneous abortions Hx # Term Pregnancies Ectopic pregnancies Hx # Pregnancies Multiple births # of living children ROS Constitutional Constitutional: Denies fatigue, fever(s) or malaise Eyes Eyes: Denies change in vision ENT HEENT: Denies dizziness or headache(s) Cardiovascular Cardiovascular: Denies chest pain, dyspnea or lightheadedness Respiratory/Chest Respiratory/Chest: Denies cough or dyspnea Gastrointestinal Gastrointestinal: Denies change in bowel habits Genitourinary Genitourinary: Denies burning urination or genital lesions Integumentary Integumentary: Denies rash Neurologic Neurologic: Denies confusion, dizziness, headache(s), numbness or weakness Vital Signs Vital Signs Vital Signs: 07/28/24 23:21 07/28/24 23:21 07/28/24 23:21 Temperature Temperature Source Temporal Pulse Rate 91 Respiratory Rate Blood Pressure 120/70 BP Systolic 120 BP Diastolic 70 Pulse Ox 07/28/24 23:21 07/28/24 23:21 07/28/24 23:21 Temperature 98.2 F Temperature Source Pulse Rate Respiratory Rate 16 Blood Pressure BP Systolic BP Diastolic Pulse Ox 93 07/29/24 02:43 07/29/24 02:43 07/29/24 02:43 Temperature 98.0 F Temperature Source Temporal Pulse Rate Respiratory Rate 16 Blood Pressure BP Systolic BP Diastolic Pulse Ox 07/29/24 02:44 07/29/24 02:44 07/29/24 03:26 Temperature Temperature Source Pulse Rate 81 77 Respiratory Rate Blood Pressure 100/58 L BP Systolic 100 BP Diastolic 58 Pulse Ox 07/29/24 03:26 07/29/24 03:31 07/29/24 03:31 Temperature Temperature Source Pulse Rate 75 Respiratory Rate Blood Pressure BP Systolic BP Diastolic Pulse Ox 98 98 07/29/24 03:36 07/29/24 03:36 07/29/24 04:36 Temperature Temperature Source Temporal Pulse Rate 76 Respiratory Rate Blood Pressure BP Systolic BP Diastolic Pulse Ox 98 07/29/24 04:36 07/29/24 04:36 07/29/24 05:23 Temperature 97.9 F Temperature Source Pulse Rate Respiratory Rate Blood Pressure 117/63 116/76 BP Systolic 117 116 BP Diastolic 63 76 Pulse Ox 07/29/24 05:23 07/29/24 05:23 07/29/24 05:23 Temperature 98.0 F Temperature Source Pulse Rate 86 Respiratory Rate 16 Blood Pressure BP Systolic BP Diastolic Pulse Ox 07/29/24 05:24 07/29/24 05:24 07/29/24 05:25 Temperature Temperature Source Pulse Rate 103 H 85 Respiratory Rate Blood Pressure BP Systolic BP Diastolic Pulse Ox 93 07/29/24 05:25 07/29/24 05:28 07/29/24 05:28 Temperature Temperature Source Pulse Rate 86 Respiratory Rate Blood Pressure 103/72 BP Systolic 103 BP Diastolic 72 Pulse Ox 99 07/29/24 05:28 07/29/24 05:30 07/29/24 05:30 Temperature Temperature Source Pulse Rate 84 Respiratory Rate 16 Blood Pressure BP Systolic BP Diastolic Pulse Ox 99 07/29/24 05:33 07/29/24 05:35 07/29/24 05:35 Temperature Temperature Source Pulse Rate 94 Respiratory Rate 16 Blood Pressure 138/79 H BP Systolic 138 BP Diastolic 79 Pulse Ox 07/29/24 05:35 07/29/24 05:35 07/29/24 05:38 Temperature Temperature Source Pulse Rate Respiratory Rate 16 Blood Pressure 121/71 H BP Systolic 121 BP Diastolic 71 Pulse Ox 99 07/29/24 05:38 07/29/24 05:38 07/29/24 05:40 Temperature Temperature Source Pulse Rate 94 93 Respiratory Rate 16 Blood Pressure BP Systolic BP Diastolic Pulse Ox 07/29/24 05:40 07/29/24 05:43 07/29/24 05:43 Temperature Temperature Source Pulse Rate 99 Respiratory Rate Blood Pressure 130/80 H BP Systolic 130 BP Diastolic 80 Pulse Ox 98 07/29/24 05:43 07/29/24 05:45 07/29/24 05:45 Temperature Temperature Source Pulse Rate 92 Respiratory Rate 16 Blood Pressure BP Systolic BP Diastolic Pulse Ox 98 07/29/24 05:48 07/29/24 05:48 07/29/24 05:48 Temperature Temperature Source Pulse Rate 85 Respiratory Rate 16 Blood Pressure 123/68 H BP Systolic 123 BP Diastolic 68 Pulse Ox 07/29/24 05:52 07/29/24 05:52 07/29/24 05:55 Temperature Temperature Source Pulse Rate 81 Respiratory Rate Blood Pressure 104/55 L BP Systolic 104 BP Diastolic 55 Pulse Ox 99 07/29/24 05:55 07/29/24 05:55 07/29/24 05:57 Temperature Temperature Source Pulse Rate 90 90 Respiratory Rate 16 Blood Pressure BP Systolic BP Diastolic Pulse Ox 07/29/24 05:57 07/29/24 05:58 07/29/24 05:58 Temperature Temperature Source Pulse Rate 96 Respiratory Rate Blood Pressure 81/45 L BP Systolic 81 BP Diastolic 45 Pulse Ox 99 07/29/24 05:59 07/29/24 05:59 07/29/24 05:59 Temperature Temperature Source Pulse Rate 96 Respiratory Rate 16 Blood Pressure 97/46 L BP Systolic 97 BP Diastolic 46 Pulse Ox 07/29/24 06:00 07/29/24 06:00 07/29/24 06:02 Temperature Temperature Source Pulse Rate 96 82 Respiratory Rate Blood Pressure 95/51 L BP Systolic 95 BP Diastolic 51 Pulse Ox 07/29/24 06:02 07/29/24 06:04 07/29/24 06:04 Temperature Temperature Source Pulse Rate 83 Respiratory Rate Blood Pressure 94/52 L BP Systolic 94 BP Diastolic 52 Pulse Ox 99 07/29/24 06:05 07/29/24 06:07 07/29/24 06:07 Temperature Temperature Source Pulse Rate 88 Respiratory Rate 16 Blood Pressure BP Systolic BP Diastolic Pulse Ox 100 07/29/24 06:09 07/29/24 06:09 07/29/24 06:09 Temperature Temperature Source Pulse Rate 78 Respiratory Rate 16 Blood Pressure 85/50 L BP Systolic 85 BP Diastolic 50 Pulse Ox 07/29/24 06:12 07/29/24 06:12 07/29/24 06:12 Temperature Temperature Source Pulse Rate 80 Respiratory Rate Blood Pressure 81/43 L BP Systolic 81 BP Diastolic 43 Pulse Ox 99 07/29/24 06:13 07/29/24 06:13 07/29/24 06:17 Temperature Temperature Source Pulse Rate 94 89 Respiratory Rate Blood Pressure 76/42 L BP Systolic 76 BP Diastolic 42 Pulse Ox 07/29/24 06:17 07/29/24 06:19 07/29/24 06:19 Temperature Temperature Source Pulse Rate 67 Respiratory Rate Blood Pressure 93/55 L BP Systolic 93 BP Diastolic 55 Pulse Ox 100 07/29/24 06:19 07/29/24 06:22 07/29/24 06:22 Temperature Temperature Source Pulse Rate 74 Respiratory Rate 16 Blood Pressure BP Systolic BP Diastolic Pulse Ox 100 07/29/24 06:24 07/29/24 06:24 07/29/24 06:27 Temperature Temperature Source Pulse Rate 74 78 Respiratory Rate Blood Pressure 115/56 L BP Systolic 115 BP Diastolic 56 Pulse Ox 07/29/24 06:27 07/29/24 06:29 07/29/24 06:29 Temperature Temperature Source Pulse Rate 92 Respiratory Rate Blood Pressure 116/56 L BP Systolic 116 BP Diastolic 56 Pulse Ox 100 07/29/24 06:32 07/29/24 06:32 07/29/24 06:35 Temperature Temperature Source Pulse Rate 103 H 93 Respiratory Rate Blood Pressure BP Systolic BP Diastolic Pulse Ox 100 07/29/24 06:35 07/29/24 06:37 07/29/24 06:37 Temperature Temperature Source Pulse Rate 94 Respiratory Rate Blood Pressure 136/62 H BP Systolic 136 BP Diastolic 62 Pulse Ox 91 07/29/24 06:37 07/29/24 06:37 07/29/24 06:37 Temperature Temperature Source Temporal Pulse Rate Respiratory Rate 16 Blood Pressure BP Systolic BP Diastolic Pulse Ox 100 07/29/24 06:37 07/29/24 08:12 07/29/24 08:12 Temperature 98.2 F Temperature Source Pulse Rate 100 Respiratory Rate Blood Pressure 107/58 L BP Systolic 107 BP Diastolic 58 Pulse Ox 07/29/24 08:12 07/29/24 08:12 07/29/24 08:12 Temperature 98.2 F Temperature Source Temporal Pulse Rate Respiratory Rate 16 Blood Pressure BP Systolic BP Diastolic Pulse Ox Weight Weight: 93.6 kg Body Mass Index (BMI) 37.7 Physical Exam Const alert and no apparent distress General Appearance: cooperative HEENT normocephalic Resp normal respiratory effort Cardio regular rate GI soft to palpation GI Narrative: gravid, nontender, appropriate for gestational age Extremity no calf tenderness General Extremity: edema Skin no wounds Rashes: No rashes noted Psych activity/motor behavior normal Labs Labs Labs: Blood Type A POSITIVE Antibody Screen NEGATIVE Hct 38.3 % (37-47) Hgb 13.0 g/dL (12.0-15.0) Syphilis Total Ab Nonreactive (Nonreactive) VZV IgG Antibody 1.34 index (Immune >1.09-) Assessment & Plan (1) High risk multigravida in third trimester: PLAN: Estimated weight is less than 4500 g and pelvis clinically adequate to expect vaginal delivery. Will monitor blood sugars in labor. Pitocin induction of labor for premature rupture of membranes. May use routine pain control measures as needed and as indicated for labor. (2) Gestational diabetes, diet controlled: (3) PROM (premature rupture of membranes): (4) Maternal obesity syndrome in third trimester: (5) BMI 37.0-37.9, adult:
[2024-07-29] MEDS: Lactated Ringers 1,000 ML 200 ML IV (10:00)
[2024-07-29 10:13] LABS: Bedside Glucose 85 mg/dL (74-106)
--- NOTE | 2024-07-29 11:30 | EX.PCM.OBVAG ---
Assessment & Plan (1) Single live : Maternal Data Information Final LIZBETH: 08/10/24 Gestational age: 38 2/7 Vaginal Delivery Maternal Presentation Maternal Presentation: Spontaneous Rupture of Membranes Type of Induction: Pitocin Vaginal Delivery Information Procedure Performed: Spontaneous Vaginal Delivery Surgeon/Practitioner: Amy Mejia Date of Procedure: 07/29/24 Pre-Procedure Diagnosis: labor Post-Procedure Diagnosis: same Type of anesthesia: Epidural Special Medications: none Estimated Blood Loss: 200 Time of Delivery: 11:22 Findings Description of procedure: A vigorous female infant was delivered HUBER over a small first-degree perineal laceration. The remainder the was delivered with maternal pushing and gentle traction only in less than 15 seconds. The Pitocin infusion was initiated for active management of the third stage. The cord was clamped and cut after cord pulsations ceased. The infant was attended to by the waiting nursing staff. The placenta was delivered spontaneously and intact. The cervix and vagina were intact. The small superficial laceration was less than 1 cm and was hemostatic. It was not repaired. Sponge and needle counts were correct. A vaginal sweep was completed by me. Presentation: HUBER Amniotic Membrane Rupture Type: Spontaneous Amniotic Fluid Description: Clear Placental Delivery Description: Spontaneous Placenta Disposition: [facility] Specimen collected: No Cord Vessel Description: 3 Vessels Cord Entanglement: None Infant A Gender: Female (West) (1 minute): 9 (5 minute): 9 Delayed Cord Clamping: Yes Gift Basket Packer light industrial: Yes Problem Manager: Zahira Dejesus MS3 Tasks completed by topographical field assistant: Retracting Additional trust operations assistant?: No Post Vaginal Deli Medications given after delivery: IV Pitocin Episiotomy Description: None Laceration: 1st degree Complication Complications: No
[2024-07-29] MEDS: Oxytocin 15 Units/NS 250ml 15 UNITS/250 ML IV.SOLN 83 UNITS IV (11:50)
[2024-07-29 12:22] LABS: Bedside Glucose 85 mg/dL (74-106)
[2024-07-29] MEDS: Acetaminophen 500 MG Tablet 1000 MG PO (20:52)
[2024-07-30 01:32] VITALS: BP 117/64; PULSE 84; RESP 16; O2SAT 97
[2024-07-30 05:14] VITALS: BP 99/60; PULSE 79; RESP 15; O2SAT 98
[2024-07-30 05:38] LABS: Bedside Glucose 116 mg/dL (74-106)
[2024-07-30 08:19] VITALS: BP 107/57; PULSE 103; RESP 16; O2SAT 98
--- NOTE | 2024-07-30 09:11 | DS.PCM_ITS ---
Providers Date of Admission: 07/28/24 Primary Care Physician: Dr. Gerardo Ty MD Reason For Visit: VAGINAL DELIVERY Diagnosis Discharge Diagnosis (1) Single live : Status: Acute Code(s): Z37.0 - Single live Medications at Discharge Home Medications [id number] 1 mg tablet 1 tab PO DAILY supplement 03/09/22 Hospital Course Operations None Procedures None Summary of Care Provided Minutes Spent on Discharge: 15 Hospital Course: Patient had vaginal delivery. Hospital course was uneventful. Physical Exam Narrative Patient seen at bedside. Denies pain. Ambulating and voiding without difficulty. Lochia decreased. Desires discharge home today. Formula feeding until gets home. Const alert and oriented x3 General Appearance: Negative for in distress HEENT normocephalic Eyes General Eye: normal appearance of both eyes Neck General: normal visual inspection Chest Chest: symmetrical chest wall rise Resp normal respiratory effort and normal air movement Effort and Inspection: symmetric chest movement; Negative for tachypneic Auscultation: clear to auscultation bilaterally Cardio regular rate and regular rhythm Peripheral Pulses: pulses 2+ throughout GI normal to inspection, nondistended, normoactive bowel sounds Narrative: Ice to perineum OB / External & Speculum: vaginal bleeding and other Lochia decreasing Uterus Palpation: uterus fundus firm (Below U) Extremity normal to inspection, full ROM and normal capillary refill Skin no rashes or lesions noted Neuro oriented x3, CN's II-XII intact bilaterally and gait normal Psych mental status grossly normal, thought process normal and activity/motor behavior normal Weight / BMI Weight Weight: 206 lb 5.643 oz Body Mass Index (BMI) 37.7 ABG / Lab / Microbiology Data 07/28/24 00:00 Laboratory: Laboratory Results - last 24 hr 07/29/24 09:56: POC Glucose 85 07/29/24 11:57: POC Glucose 85 07/30/24 05:18: POC Glucose 116 H D/C Instructions Discharge Diet: No restrictions Discharge Activity: Return to Normal Activity, No Restrictions, May Drive, May Shower and May Take a Tub Bath (Warm water only. No bath salts, soaps, bubbles) May resume sexual activity in: 6-8 weeks Weight Bearing Status: Weight bearing as tolerated Call your doctor if you observe: Fever of 101 or Higher, Inability to urinate, Using more than 1 pad per hour, Shortness of breath, Dizziness, Chest pain, Calf discomfort and Uncontrolled pain DC O2, CPAP, BIPAP Needs Home O2 Discharge instructions: No Please Follow Up With: [facility] Luba BELLE When: 2 weeks in office or virtual Meaningful Use Info Meaningful Use Meaningful Use Diagnoses (Choose all that apply): None applicable Ischemic Stroke Statin Dosing Therapy Reference: STATIN DOSE THERAPY REFERENCE: * Patients > 75 years receive moderate or high dose statin therapy. * Patients 75 years or YOUNGER should receive HIGH intensity statin dose unless contraindicated. You will be required to document reason for non-treatment if statin daily dose does not meet guidelines. HIGH DOSE STATIN THERAPY DAILY Atorvastatin > than or = to 40 mg Rosuvastatin > than or = to 20 mg Amlodipine + Atorvastatin > than or = to 2.5/40 mg Ezetimibe + Simvastatin 10/80 mg Simvastatin 80mg Discharge Plan Admission Admit Date/Time: 07/28/24 23:50 Primary Reason for Your Visit: Labor and Delivery Attending Provider: Amy Mejia Primary Care Provider: Gerardo Ty Discharge Orders/Prescriptions Prescriptions: Continued [id number] 1 mg Tablet 1 tab PO DAILY Discontinued aspirin 81 mg capsule 81 mg PO DAILY Referrals / Follow Up: Katelin Sanchez CNM [Med Staff - Adv Practice Prof] - Gerardo Ty MD [Primary Care Provider] - Disposition Disposition (needs filled in before D/C Order can be placed): Home, Self Care
[2024-07-30 14:05] VITALS: BP 95/60; RESP 16; TEMP 36.8
== END 2024-07-30 14:28 | disposition home or self-care (01) | DRG 807 ==
LOC: WPOUT 23:58 → WP 23:58
PROVIDERS: Obstetrics & Gynecology; Admitting Provider Obstetrics & Gynecology; PCP Internal Medicine; Referring Provider Obstetrics & Gynecology; Visit Provider Obstetrics & Gynecology
DX: O24.420 Gestational diabetes mellitus in childbirth, diet controlled (principal); Z37.0 Single live birth; O42.92 Full-term premature rupture of membranes, unspecified as to length of time between rupture and onset of labor; O99.214 Obesity complicating childbirth; Z3A.38 38 weeks gestation of pregnancy
CPT/HCPCS: 59025; 59050; 82962; 84112; 85025; 86780; 86850; 86900; 86901; 99221; G0378

== ENCOUNTER 2024-10-02 08:27 | Day surgery (SDC) | payer OTHER, SELFPAY ==
--- NOTE | 2024-10-01 17:23 | PCM.HP.BLA ---
History and Physical Date of Admission: 10/02/24 Expand All Collapse All Pre-Op History and Physical HPI: The patient is a 34 year old female presenting for pre-operative visit. She is scheduled for laparoscopic bilateral salpingectomy , for desires sterilization on 10/02/24. Procedure discussed along with risks, benefits and complications. Other alternatives discussed for management. Consent form signed? Yes. PAST MEDICAL HISTORY PAST MEDICAL HISTORY Diagnosis Date ? #[id number] ? Anemia ? Family history of cystic fibrosis 07/28/2021 2Patient's second cousin with cystic fibrosis. Patient states that she has never had any genetic carrier screening testing.TKRN ? GDM (gestational diabetes mellitus), class A1 (HCC) 05/29/2024 ? history infertility ? Varicella without mention of complication 05/26/1994 PAST SURGICAL HISTORY PAST SURGICAL HISTORY Procedure Laterality Date ? ARTHROSCOPY KNEE DIAGNOSTIC W/WO SYNOVIAL BX SPX 07/10/2008 Arthroscopy, knee ? KNEE SURGERY HX Right 04/14/2016 miniscus repair ? PAST SURGICAL HISTORY OF Right 2004 ACL ? PAST SURGICAL HISTORY OF Left Meniscus repair ? TONSILLECTOMY & ADENOIDECTOMY <AGE 14 ? TYMPANOSTOMY LOCAL/TOPICAL ANESTHESIA CURRENT MEDICATIONS Current Outpatient Medications Medication Sig Dispense Refill ? Breast Pump Use as directed 1 Each 0 No current facility-administered medications for this visit. ALLERGIES: Sulfa (Sulfonamide Antibiotics) PERSONAL HISTORY: SOCIAL HISTORY Social History Tobacco Use ? Smoking status: Never ? Smokeless tobacco: Never Vaping Use ? Vaping status: Never Used Substance Use Topics ? Alcohol use: Not Currently Comment: Socially ? Drug use: No FAMILY HISTORY: FAMILY HISTORY FAMILY HISTORY Problem Relation Age of Onset ? Diabetes Mother ? other (IBS) Mother ? Hypertension Father ? No Known Problems Sister ? No Known Problems Brother ? Aneurysm Maternal Grandmother - brain aneurysm @ 69yrs of age ? Cancer Maternal Grandmother breast ? Diabetes Maternal Grandmother ? Heart Maternal Grandfather fatal PR @ 70yrs of age ? No Known Problems Paternal Grandmother ? Heart Paternal Grandfather ? Diabetes Maternal Aunt ? Diabetes Maternal Uncle ? other (multiple sclerosis) Paternal Aunt REVIEW OF SYMPTOMS: negative except as noted above PHYSICAL EXAMINATION: VITALS: Blood pressure 108/70, height 154.3 cm (5' 0.75), weight 87.5 kg (193 lb), last menstrual period 10/27/2023, currently . GENERAL: The patient is well nourished, well hydrated in no acute distress. , The patient is oriented to time, place, and person. NECK: full range of motion LUNGS: Clear to auscultation bilaterally. no wheezes, rhonchi or rales HEART: Regular rate and rhythm, Normal heart sounds, and No murmurs or gallops IMPRESSION: 34yo that desires sterilization PLAN: laparoscopic bilateral salpingectomy Pt has been counseled on risks/benefits and alternatives of surgery including but not limited to anesthesia, bleeding, infection, injury to pelvic structures including bowel, bladder, ureters and vessels. Pt wishes to proceed with surgery at this time. Pre and post op instructions reviewed I have reviewed and updated past medical and surgical history, medications and allergies Farida Huang MD Office Visit on 09/26/2024 Note shared with patient
[2024-10-02] VITALS (11 sets, daily range): BP systolic 97–119; BP diastolic 56–81; PULSE 68–98; RESP 16–18; TEMP 36.1–36.8; O2SAT 93–100; BMI 35.3
[2024-10-02] MEDS: Lactated Ringers 1,000 ML 15 ML IV (08:45)
[2024-10-02 09:06] LABS: Internal QC Validated? YES +Cl - CLEAR BKGD; Pregnancy, Urine Negative Negative
--- NOTE | 2024-10-02 09:25 | PRE.ANES_ITS ---
ASA Classification* ASA Classification ASA Classification: 2 Assessment & Plan Anesthesia* Anesthesia Assessment Anesthesia Assessment: Discussed sedation and/or anesthesia options, risks, benefits, and alternatives with patient/parents/legal guardian/POA. Questions invited. The patient/parents/legal guardian/POA seems to understand and agrees to proceed with anesthesia plan. Reviewed the physical assessment, medical history, allergy history and patient home medications list prior to surgery/procedure/anesthetic and documented any changes. Performed airway and anesthesia risk assessments. Procedural Plan Add'l anesthesia plan details: Consider TIVA due to PONV. Scopolamine patch ordered. Anesthesia Type Anesthesia Type: General History Source History Obtained from:: Patient and Chart Anesthesia Focused Assessment* Temperature: 98.3 F Pulse Rate: 78 Blood Pressure: 97/56 Respiratory Rate: 16 Pulse Ox: 98 Oxygen Delivery Method: Room Air Airway Assessment Mouth opens: >3 cm Mallampati Score: III Teeth Condition: Intact Neck Range of motion (ROM): Full ROM Focused Labs Anesthesia Preop lab: CBC WBC 13.5 K/mm3 (4.4-11.0) H 07/28/24 00:00 5 RBC 4.72 M/mm3 (4.2-5.4) 07/28/24 00:00 07/28/24 Hgb 13.0 g/dL (12.0-15.0) 07/28/24 00:00 07/28/24 Hct 38.3 % (37-47) 07/28/24 00:00 07/28/24 Plt Count 141 K/mm3 (150-450) L 07/28/24 00:00 07/28/24 CHEMISTRY Potassium 3.8 mmol/L (3.5-5.1) 06/19/23 14:54 06/19/23 Sodium 138 mmol/L (136-145) 06/19/23 14:54 06/19/23 BUN 9 mg/dL (7-18) 06/19/23 14:54 06/19/23 Creatinine 0.88 mg/dL (0.55-1.02) 06/19/23 14:54 06/19/23 Glucose 130 mg/dL (74-106) H 06/19/23 14:54 06/19/23 POC Glucose 116 mg/dL (74-106) H 07/30/24 05:18 07/30/24 COAG Urine Test Negative Negative 10/02/24 08:48 10/02/24 Pre-Assessment Diagnosis/Proposed Procedure Planned Operative Procedure(s): LAP BILAT SALPINGECTOMY Anesthesia History Anesthesia History - repairer engine production: Anesthesia History - repairer engine production Hx Hospitalization No 09/29/24 12:08 Any Problems With Anesthesia Yes: N,V 09/29/24 12:08 Cholinesterase deficiency No 09/29/24 12:08 You/Your Family Experience No 09/29/24 12:08 fever (hyperthermia) with Relationship Recent Exposure to Contagious No 10/02/24 08:56 Disease Does patient have nerve No 09/29/24 12:08 stimulator Patient instructed to have device shut off --Does patient have Pacemaker No 10/02/24 08:56 or ICD? When Was Last Pacemaker Check QUESTION #4 FULL TEXT: You/Your Family Experience fever (hyperthermia) with Anesthesia Last Oral Intake Last Oral intake: Last Oral Intake NPO since 21:00 10/02/24 08:56 Meds taken in AM with sips of No 10/02/24 08:56 water? Meds patient instructed to take am of surgery PONV PONV - repairer engine production: PONV - repairer engine production Female Yes 09/29/24 12:08 HX of Motion Sickness Yes 09/29/24 12:08 HX of N/V After Surgery Yes 09/29/24 12:08 Non-Smoker Yes 09/29/24 12:08 Duration of Surgery greater No 09/29/24 12:08 than 60 minutes Number of Risk Factors 4 09/29/24 12:08 PONV Score Severe Risk 09/29/24 12:08 Height & Weight Height & Weight: Anesthesia: Height & Weight Height 5 ft 2 in 10/02/24 08:56 Weight: 87.7 kg 10/02/24 08:56 Body Mass Index (BMI) 35.3 10/02/24 08:56 Respiratory Assessment Respiratory Assessment - repairer engine production: Respiratory Tract Infection Hx - repairer engine production Hx Respiratory Tract Infection No 09/29/24 12:08 STOP Sleep Apnea STOP Sleep Apnea - repairer engine production: STOP Sleep Apnea - repairer engine production Hx Hypertension No 09/29/24 12:08 Hx Sleep Apnea No 09/29/24 12:08 CPAP BIPAP Do you snore loudly (louder No 09/29/24 12:08 than talking or can be heard Do you often feel tired/ No 09/29/24 12:08 fatigued/ sleepy during daytime? Has anyone observed you stop No 09/29/24 12:08 breathing during sleep? STOP Results Negative 09/29/24 12:08 QUESTION #5 FULL TEXT : Do you snore loudly (louder than talking or can be heard through closed doors)? 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 Specify any problems Hx of Preganancy in last 3 Yes 09/29/24 12:08 Months Nurse Filling Out Transfusion DSCHRIBER 09/29/24 12:08 & Questions: Date: 09/29/24 09/29/24 12:08 Time: 12:10 09/29/24 12:08 Patient unable to answer at this time (ie. confused, unrespo /Reproduction History /Reproductive History - repairer engine production: /Reproductive Hx- repairer engine production Hx Now No 09/29/24 12:08 Gestational Age (in weeks): EDC: Hx Hx Para Hx Section SAB Yes 09/29/24 12:08 Active Medications Active Medications: Current Medications Generic Name Dose Route Start Last Admin Trade Name Freq PRN Reason Stop Dose Admin Lactated Ringer's 1,000 mls @ 15 mls/hr 10/02/24 08:45 10/02/24 08:45 IV 15 mls/hr .Q48H ENDY Administration PFSH Medical History Alcohol use Arthritis Injury of head and neck Heartburn Non-smoker Single live BMI 37.0-37.9, adult Maternal obesity syndrome in third trimester PROM (premature rupture of membranes) Gestational diabetes, diet controlled High risk multigravida in third trimester Gestational diabetes Nausea vomiting and diarrhea PROM (premature rupture of membranes) Back pain Migraines Scoliosis Seasonal allergies Arthritis Home Medications ?Medication ?Instructions ?Recorded ?Last Taken ?Type multivitamin (Daily Multi-Vitamin 1 tab PO DAILY 09/29 Unknown History tablet) Allergy/AdvReac Type Severity Reaction Status Date / Time Sulfa (Sulfonamide Allergy Intermediate Rash Verified 09/29/24 12:07 Antibiotics) Family History Grandfather Myocardial infarction, Onset Age: 51 Grandmother Myocardial infarction, Onset Age: 61 Sister Asthma Mother Diabetes Hypertension Arthritis Uncle Myocardial infarction 2 uncles Surgical History History of placement of ear tubes History of tonsillectomy and adenoidectomy meniscus repair S/P ACL repair Social History Smoking Status: Never smoker alcohol intake: current alcohol intake frequency: holidays/special occasions only Alcohol type: wine substance use type: does not use what type of physical activity do you participate in: running and weight training frequency: 3-4 times per week Review of Systems (Anesthesia) ROS Narrative System reviewed and no additional complaints, except as documented.
--- NOTE | 2024-10-02 10:00 | FALS_PTH ---
PATIENT: JAYNA COLES [place] [facility] [place][id number] AGE/SX: 34/F ROOM: RE10/02/[address]: Dr. Farida Simental, MDDOB: 1990 BED: DIS: 10/02/2024 SPEC #: [id number] RECD: 10/02/24 13:13 STATUS: TARAN EDGAR #: [id number] JEFF: 10/02/24 10:[address]: Farida Simental DEPT: SURGICAL PATHOLOGY RECD BY: Benito Gamboa ENTERED: 10/02/24 13:21 SP TYPE: FALL TUBES OTHR DR: Dr. Gerardo Ty MD Tissues: A - Fallopian tube Procedures: Surgery Specimen Level II HEADER OPERATION: Laparoscopic, bilateral salpingectomy PRE-OP DIAGNOSIS: Desires sterilization TISSUE SUBMITTED: A- Bilateral fallopian tubes MICROSCOPIC DIAGNOSIS A. Two fallopian tubes, bilateral salpingectomies: * Full thickness segments of two fallopian tubes * Paratubal cyst of one of the fallopian tubes MICROSCOPIC DESCRIPTION Slides are reviewed. GROSS DESCRIPTION A. Received in formalin in a container labeled with the patient's name, date of , and bilateral fallopian tubes are 2 unoriented and fimbriated fallopian tubes, each measuring 6.0 cm in length with an average diameter of 0.7 cm. Each display vincent-pink, smooth, and glistening serosa with unremarkable fimbriated ends. 1 fallopian tube exhibits a 0.7 x 0.6 x 0.4 cm thin-walled paratubal cyst. Sectioning of each reveals a pinpoint lumen. Nozzle Cement Sprayer Helper sections:A1. Fallopian tube with paratubal cystA2. Second fallopian tube [facility] 10-02-2024 CPT:59117d4
[2024-10-02] MEDS: Bupivacaine 0.5% PF 10 ML VIAL (10:32)
--- NOTE | 2024-10-02 10:41 | PCM.DC ---
Discharge Instructions Diet Discharge Diet: No restrictions DC O2, CPAP, BIPAP needs Home O2 Discharge instructions: No Dressing / Incision May resume sexual activity in: 2 weeks Lifting Restrictions: 20-25 lbs Dressing / Incision Call your doctor if your incision/area has: Continuous Slow Oozing, Sudden Increased Bleeding, Increased Pain/ Swelling, Increased Redness, Foul Smelling Discharge and Swelling at the incision site Call your doctor if you observe: Fever of 101 or Higher, Inability to urinate, Inability to have a bowel movement, Using more than 1 pad per hour and Uncontrolled pain Additional Dressing/Incision Instructions:: You have skin glue over your incision sites, do not pick off. You may shower and let the soap and water run over the incision sites and dab dry. Follow Up Care Please Follow Up With: Farida Simental MD When: I will call you with pathology results in 1-2 weeks, if you need an appointment to be seen please call [phone] Test Results: Test results from this visit will be discussed in further detail at your follow-up appointment, if applicable. Discharge Plan Admission Attending Provider: Farida Simental Primary Care Provider: Gerardo Ty Instructions Print Language: Greenlandic Discharge Orders/Prescriptions Prescriptions: No Action multivitamin [Daily Multi-Vitamin] Tablet 1 tab PO DAILY Referrals / Follow Up: Gerardo Ty MD [Primary Care Provider] - Disposition Disposition (needs filled in before D/C Order can be placed): Home, Self Care
--- NOTE | 2024-10-02 10:41 | PCM.OPRPT ---
Operative Report (Standard) Operative Information Date of Procedure: 10/02/24 Pre-Operative Diagnosis: sterilization request Post-Operative Diagnosis: same, endometriosis Surgery/Procedure Performed: Laparoscopic bilateral salpingectomy gasoline truck crane operator: Yes Fisher Trap: james thomas PGY3 Tasks completed by news assistant: Opening & closing, Dissecting tissue and Removing tissue Additional yard assistant?: No Type of Anesthesia: General and Local RN Documented Start/Stop Times: Operation Date: 10/02/24 10:00 Case Time Into Pre-Op 10/02/24 08:34 Out of Pre-Op 10/02/24 09:57 Anesthesia Start 10/02/24 10:00 Into Room 10/02/24 10:00 Procedure Start 10/02/24 10:31 Procedure Start Time: :31 Procedure Stop Time: 10:45 Select all DRAINS/GRAFTS/IMPLANTS that apply: None Estimated Blood Loss: <5cc Fluids Replaced: 600 Specimen collected: Yes Description of specimen(s) removed: bilateral fallopian tubes Description of surgery: After informed consent was obtained patient was taken to the operating room she was placed in supine position she was given anesthesia. She was then placed in the [facility] stirru and she was prepped and draped in normal sterile fashion. Bladder was drained prior to the start of procedure. At this time attention was turned to the vaginal portion where weighted speculum placed at posterior fornix vagina single-tooth tenaculum was used to gently grasp the internal the cervix. uterus was gently sounded to approximately 8cm. Uterine manipulator was placed without difficulty. Legs then placed in parallel with the abdomen the tenaculum and the weighted speculum were removed. 2 towel clamps were placed directly inferior to umbilicus as inside umbilicus appeared erythematous. Marcaine was injected infraumbilical and a small incision was made. The 5 mm trocar was placed under direct visualization. CO2 gas was used to insufflate the intra-abdominal cavity. Upon inspection no gross abnormalities appreciated- the uterus tubes and ovaries appeared to be normal. At this time then the LLQ and RLQ ports were placed First Marcaine was injected and small incision was made a knife and the 5 mm trocars were placed. At this time then tubes were traced back to the fimbriated ends. Enseal was used to coagulate and ligate along mesosalpinx bilaterally until tubes removed completely. Good hemostasis was appreciated. At this time procedure was deemed complete successful. The gas was desufflated on from the intra-abdominal cavity. The trochars were removed. Skin was closed using 4-0 Monocryl in a subcutaneous fashion. Dermabond glue was placed. Instrument lap and needle counts were correct ?2. The uterine manipulator was removed. Vaginal sweep was performed it was negative. There were no complications anticipated normal postoperative course for this patient. Surgical Findings: normal tubes and ovaries. Endometriosis on posterior aspect of uterus near USL more on left side. No adhesions noted. Complications Complications: No Admit VTE Documentation VTE Present on Admission: Yes VTE Mechan Device Prophylaxis: SCD's VTE Pharm Prophylaxis ordered?: No Reason prophylaxis not ordered: Treatment Not Indicated
--- NOTE | 2024-10-02 11:04 | PCM.POST.ANE ---
Anesthesia: Postop Eval I Current Vital Signs Temperature: 97 F Pulse Rate: 98 Blood Pressure: 117/69 Respiratory Rate: 18 Pulse Ox: 97 Oxygen Delivery Method: Nasal Cannula Oxygen Flow Rate (L/min): 2 Assessment Airway patent: Yes Spontaneous unlabored respirations: Yes Mental status: Calm nausea: No Vomiting: No Anesthesia Complication: No Fluid Hydration Crystalloid volume administer (ml): 600 Total IV fluid infused: 600 Progress Note Anesthesia document: Postop Eval 1 completed: Yes
--- NOTE | 2024-10-02 13:55 | SUR.PHASEII ---
DR. NOLASCO WAS IN AND USED A SPECULUM TO CHECK PATIENT FOR BLEEDING. SHE STATES SHE IS NOT CONCERNED ABOUT BLEEDING AND PATIENT IS OK TO BE DISCHARGED.
--- NOTE | 2024-10-02 18:59 | POSTOPAN2_ITS ---
Anesthesia Postop Eval I Sum Postop Eval Completion status Anesthesia document: Postop Eval 1 completed: Yes Anesthesia Postop Eval I Summary Anesthesia Postop Eval I Summary: Anesthesia Postop Eval I: Assessment Summary Airway patent Yes 10/02/24 11:04 NETWORK SECURITY ANALYST.SHOF Spontaneous unlabored Yes 10/02/24 11:04 NETWORK SECURITY ANALYST.SHOF respirations Mental status Calm 10/02/24 11:04 NETWORK SECURITY ANALYST.SHOF nausea No 10/02/24 11:04 NETWORK SECURITY ANALYST.SHOF Vomiting No 10/02/24 11:04 NETWORK SECURITY ANALYST.SHOF Anesthesia Postop Eval I: Fluid Summary Crystalloid volume administer 600 10/02/24 11:04 NETWORK SECURITY ANALYST.SHOF (ml) Colloids volume administered ( ml) Blood Product volume administered (ml) Total IV fluid infused 600 10/02/24 11:04 NETWORK SECURITY ANALYST.SHOF Anesthesia Postop Eval I: Summary Notes Anesthesia Complication No 10/02/24 11:04 NETWORK SECURITY ANALYST.SHOF Anesthesia Complication Comment: Post-operative progress note Anesthesia: Postop Eval II Evaluation Mental status: Awake Pain Level: 1 nausea: No Vomiting: No Complications Anesthesia Complication: No
--- NOTE | 2024-10-02 18:59 | PCM.POSTANE2 ---
Anesthesia Postop Eval I Sum Postop Eval Completion status Anesthesia document: Postop Eval 1 completed: Yes Anesthesia Postop Eval I Summary Anesthesia Postop Eval I Summary: Anesthesia Postop Eval I: Assessment Summary Airway patent Yes 10/02/24 11:04 AUTO LEASING MANAGER.SHOF Spontaneous unlabored Yes 10/02/24 11:04 AUTO LEASING MANAGER.SHOF respirations Mental status Calm 10/02/24 11:04 AUTO LEASING MANAGER.SHOF nausea No 10/02/24 11:04 AUTO LEASING MANAGER.SHOF Vomiting No 10/02/24 11:04 AUTO LEASING MANAGER.SHOF Anesthesia Postop Eval I: Fluid Summary Crystalloid volume administer 600 10/02/24 11:04 AUTO LEASING MANAGER.SHOF (ml) Colloids volume administered ( ml) Blood Product volume administered (ml) Total IV fluid infused 600 10/02/24 11:04 AUTO LEASING MANAGER.SHOF Anesthesia Postop Eval I: Summary Notes Anesthesia Complication No 10/02/24 11:04 AUTO LEASING MANAGER.SHOF Anesthesia Complication Comment: Post-operative progress note Anesthesia: Postop Eval II Evaluation Mental status: Awake Pain Level: 1 nausea: No Vomiting: No Complications Anesthesia Complication: No
== END 2024-10-02 14:07 | disposition home or self-care (01) ==
LOC: SDC 08:31 → AC 08:32
PROVIDERS: PCP Internal Medicine; Referring Provider Obstetrics & Gynecology; Visit Provider Obstetrics & Gynecology
PROC: (CPT 58661; principal; 2024-10-02 09:45)
DX: Z30.2 Encounter for sterilization (principal); N80.00 Endometriosis of the uterus, unspecified; N83.8 Other noninflammatory disorders of ovary, fallopian tube and broad ligament
CPT/HCPCS: 58661; 81025; 88302; J2405